=== PATIENT | female | born 1965 | race Caucasian/White ===

== ENCOUNTER → 2020-09-30 14:30 | Outpatient (BNVA) | payer OTHER, SELFPAY | PROVIDERS: PCP Internal Medicine; Referring Provider Internal Medicine; Visit Provider Nurse Practitioner ==

== ENCOUNTER 2020-10-12 07:57 | Outpatient (REF) | payer OTHER, SELFPAY ==
[2020-10-12 09:35] LABS: MANUAL DIFF FLAG NO
[2020-10-12 09:48] LABS: Basophils Percent Auto 1.1 % (0-2); Eosinophils Absolute Auto 0.1 X10*3/uL (0.0-0.4); Eosinophils Percent Auto 3.9 % (0-4); Hematocrit 39.5 % (37-47); Hemoglobin 12.8 g/dl (12.0-16.0); Imm Gran Abs Auto 0.01 X10*3/uL (0.00-0.03); Imm Gran Pct Auto 0.3 % (0.0-0.4); Lymphocytes Absolute Auto 1.6 X10*3/uL (1.2-4.9); Lymphocytes Percent Auto 45.1 % (20-40); Mean Corpuscular HGB Conc 32.4 g/dl (31.0-35.0); Mean Corpuscular Volume 89.4 fL (80-98); Mean Platelet Volume 10.4 fL (9.4-12.3); Monocytes Absolute Auto 0.4 X10*3/uL (0.1-1.2); Monocytes Percent Auto 10.4 % (2-11); Neutrophils Absolute Auto 1.4 X10*3/uL (2.0-8.3); Neutrophils Percent Auto 39.2 % (45-73); Platelet Count 268 X10*3/uL (160-400); Red Blood Count 4.42 X10*6/uL (4.20-5.50); Red Cell Distribution Width 13.6 % (11.0-16.0); White Blood Count 3.6 X10*3/uL (4.8-10.8)
[2020-10-12 09:53] LABS: Alanine Aminotransferase 14 U/L (0-31); Albumin Level 3.7 g/dL (3.5-5.0); Alkaline Phosphatase 44 U/L (39-117); Anion Gap 11 (12-20); Aspartate Amino Transferase 19 U/L (5-31); Bilirubin Total 0.4 mg/dL (0.0-1.0); Blood Urea Nitrogen 13 mg/dL (9-16); Calcium 8.8 mg/dL (8.4-10.2); Carbon Dioxide 26 mmol/L (22-29); Chloride 108 mmol/L (96-108); Cholesterol 140 mg/dL; Estimated Glomerular Filt Rate > 60; Glucose Random 86 mg/dL (60-115); HDL Cholesterol 62 mg/dL; LDL Cholesterol Calculated 66 mg/dl; Potassium 4.4 mmol/L (3.3-5.1); Sodium 141 mmol/L (135-145); Total Protein 6.1 g/dL (6.5-8.0); Triglycerides 61 mg/dL
[2020-10-12 10:08] LABS: Glucose Urine UA NEG (NEG); Leukocyte Esterase Urine NEG (NEG); Nitrite Urine NEG (NEG); Urine Blood NEG (NEG); Urine Ketones NEG (NEG); Urine Protein NEG (NEG-TRACE)
[2020-10-12 10:11] LABS: Appearance Urine CLEAR; Color Urine YELLOW
[2020-10-12 10:18] LABS: Free T4 (Free Thyroxine) 0.84 ng/dL (0.71-1.85); Thyroid Stimulating Hormone 2.87 uIU/mL (0.32-4.0); Vitamin D 25-OH Total 34.2 ng/mL (>30)
[2020-10-12 10:20] LABS: Bacteria Urine TRACE /LPF; RBC Urine 0 /HPF (0); Squamous Epithelial Cell Urine 2+ /LPF; WBC Urine 0 /HPF (0-4)
[2020-10-12 11:11] LABS: Erythrocyte Sedimentation Rate 2 MM/HR (0-20)
[2020-10-14 08:33] LABS: Folate 14.9 ng/mL (> or = 4.0); Vitamin B12 285 pg/mL (200-900)
== END 2020-10-12 07:58 | disposition home or self-care (01) ==
LOC: HO.LAB 07:57
PROVIDERS: PCP Internal Medicine; Visit Provider Internal Medicine
DX: C50.912 Malignant neoplasm of unspecified site of left female breast (principal); E78.00 Pure hypercholesterolemia, unspecified
CPT/HCPCS: 36415; 80053; 80061; 81001; 82306; 82607; 82746; 84439; 84443; 85025; 85652

== ENCOUNTER 2021-03-07 07:07 | Day surgery (SDC) | payer OTHER, SELFPAY ==
--- NOTE | 2021-03-06 09:06 | HO.ANESPROP2 ---
Documented by User: Ailin Lee NP 03/06/21 09:08 HPI - Anesthesia Eval Consult details Narrative: 55yo F for Colonoscopy PMFSH Active Problems Active Problems: All Active Problems (Updated 01/24/21 @ 13:59 by Smiley Soria RN) Gnbif-Dnzylskik-Wervh (WPW) syndrome (Acute) Colon cancer screening (Acute) Annual physical exam (Acute) Vitamin B12 deficiency (Acute) Vision changes (Acute) Osteoarthritis of knees, bilateral (Acute) Breast cancer, left (Acute) Past Medical History Medical History Breast cancer, left Chronic neck pain History of Bmcwp-Zqayulfup-Gbbts (WPW) syndrome Osteoarthritis of knees, bilateral Family History Family History Father Cholangiocarcinoma Mother Myelofibrosis Surgical History Surgical History H/O: hysterectomy History of lumpectomy of left breast Social History Social History Housing: House Alcohol intake: current Alcohol intake frequency: a few times a week Patient Tobacco Use Status: Never used Tobacco Second Hand Smoke Exposure: No Use of substances other than those prescribed or required for medical reasons: No Are you DNR?: No Advance Directives: No Advance Directives Information Provided: Yes service: No Current occupational status: employed Meds Allergies Allergy/AdvReac Type Severity Reaction Status Date / Time No Known Allergies Allergy Verified 03/07/21 07:13 Home Medications Medication Instructions Recorded Confirmed Last Taken Type cholecalciferol (vitamin D3) 25 25 mcg PO DAILY 08/15/20 01/24/21 Unknown History mcg (1,000 unit) capsule mecobalamin (vitamin B12) 5,000 5,000 mcg PO DAILY 08/15/20 01/24/21 Unknown History mcg lozenge turmeric 400 mg capsule mg PO 08/15/20 10/29/20 Unknown History ascorbate calcium (vitamin C) 500 1,000 mg PO DAILY tab 09/30/20 01/24/21 Unknown History mg tablet tamoxifen 20 mg tablet 20 mg PO DAILY 10/29/20 01/24/21 Unknown History Exam Exam Date and Time: March 06, 2021 09 Assessment and Plan Assessment Anesthesia Assessment: Chart Reviewed Documented by User: Sowmya Kauffman MD 03/07/21 07:56 PMFSH Past Medical History Medical History Breast cancer, left Chronic neck pain History of Uftoo-Cfiwvmbsk-Fpncs (WPW) syndrome Osteoarthritis of knees, bilateral Family History Family History Father Cholangiocarcinoma Mother Myelofibrosis Surgical History Surgical History H/O: hysterectomy History of lumpectomy of left breast History of Problems with Anesthesia: No Social History Social History Housing: House Alcohol intake: current Alcohol intake frequency: a few times a week Patient Tobacco Use Status: Never used Tobacco Second Hand Smoke Exposure: No Use of substances other than those prescribed or required for medical reasons: No Are you DNR?: No Advance Directives: No Advance Directives Information Provided: Yes service: No Current occupational status: employed Meds Allergies Allergy/AdvReac Type Severity Reaction Status Date / Time No Known Allergies Allergy Verified 03/07/21 07:13 Home Medications Medication Instructions Recorded Confirmed Last Taken Type cholecalciferol (vitamin D3) 25 25 mcg PO DAILY 08/15/20 01/24/21 Unknown History mcg (1,000 unit) capsule mecobalamin (vitamin B12) 5,000 5,000 mcg PO DAILY 08/15/20 01/24/21 Unknown History mcg lozenge turmeric 400 mg capsule mg PO 08/15/20 10/29/20 Unknown History ascorbate calcium (vitamin C) 500 1,000 mg PO DAILY tab 09/30/20 01/24/21 Unknown History mg tablet tamoxifen 20 mg tablet 20 mg PO DAILY 10/29/20 01/24/21 Unknown History Exam Airway Mallampati Class: II TM Dist: >3cm Neck ROM: Full Loose/Missing/Broken Teeth: No Heart: RRR Lungs: CTA Assessment and Plan Assessment Anesthesia Assessment: Anesthesia Plan Discussed Final Anesthetic Review History of Problems with Anesthesia: No NPO: Yes ASA Class: II Final Preanesthetic Review: Meds/Allgs Chart Reviewed, Consent Obtained/Reviewed and Anes Risks/Benef Reviewed Patient Risk: Low Procedure Risk: Low Anesthetic Plan Anesthetic Plan: MAC: Disposition: Standard PACU
[2021-03-07 07:19] VITALS: BMI 21.2
[2021-03-07 07:20] VITALS: BP 142/77; PULSE 97; RESP 16; TEMP 37.2; O2SAT 100
[2021-03-07] MEDS: Lactated Ringers 1,000 ML 100 ML IVCONT (07:39)
--- NOTE | 2021-03-07 07:48 | MHC.SHP ---
Pre-Procedural Eval Section A Date of Service: 03/07/21 The patient is an INPATIENT: No The History & Physical has been completed within 30 days and I have reviewed it.: No Section B Chief Complaint: screening Details of Present Illness: colon cancer screening Relevant Family History (Specify if Yes): Yes Relevant Social History: None Present Medications: see Short Stay Collaborative assessment Medical History: Significant History (Breast cancer, left Chronic neck pain) History of Previous Operations: Relevant previous surgery/procedure and date(s) (Hx of hystrectomy) Allergies: Allergies Allergy/AdvReac Type Severity Reaction Status Date / Time No Known Allergies Allergy Verified 03/07/21 07:13 Review of Systems Sugical H&P ROS: Negative: Constitution, Cardiovascular, Respiratory and Gastrointestinal Exam Surgical H&P Exam: Normal: Heart, Normal: Lungs, Normal: Extremities and Normal: Abdomen Plan Diagnosis/Plan: Unchanged I have reviewed the history and physical and performed a pertinent physical examination on my patient. No changes have occurred unless specified.
--- NOTE | 2021-03-07 07:50 | P.OP_ITS ---
Operative Note Operative Note Date of Service: 03/07/21 Narrative: Pre-op diagnosis:?Colon cancer screening Post-op diagnosis:?other (Diverticulosis) Procedure:? COLONOSCOPY TILL CECUM Consent: Indications for the procedure and potential complications of bleeding, perforation, reaction to medications and missed diagnosis were discussed with the patient and informed consent was obtained. Instrument: Olympus PCF H 190 L variable stiffness pediatric colonoscope Monitoring: Vital signs and clinical assessment, intermittent blood pressure monitoring, continuous EKG monitoring, Pulse oximetry and Carbon Dioxide monitoring were done throughout the procedure. Colon withdrawl time was 17 minutes. Procedure: The patient was placed in the left lateral decubitis position and pre-procedure medications were administered. After a digital rectal examination of the ano-rectum, the video colonoscope was inserted into the rectum and advanced through the colon to the cecum. The colonoscope was slowly withdrawn in a retrograde panoramic fashion and the colon mucosa was carefully examined including a retroflexed view of the rectum. Findings and interventions are described below. Procedure Difficulty: Without difficulty Findings: Terminal Ileum: Not evaluated Cecum:? Normal Ascending Colon:? Normal Transverse Colon:? Normal Descending Colon:? Moderate divertiiculosis Sigmoid Colon:? Moderate diverticulosis Rectum:? Normal Ano-rectum:? Hypertrophied anal papillae. Colon preparation:? Good Impression and Post Procedure Diagnosis: Colonoscopy Findings: No polyps were detected. Moderate diverticulosis seen in the left colon Plan: Repeat Colonoscopy in 10 years. Above findings were reviewed with the patient and diverticulosis handout was given in the discharge area Surgeon:?Julio Canchola MD Anesthesia:?MAC (Tessa Dumont CRNA) Was an Community Development Manager used for this Procedure?:?Yes Community Development Manager:?Alison Dupont Estimated blood loss (mL):?0 Pathology:?none sent Condition:?stable Disposition:?PACU
[2021-03-07 08:35] VITALS: BP 95/59; PULSE 89; RESP 18; TEMP 36.5; O2SAT 97
[2021-03-07 08:50] VITALS: BP 105/71; PULSE 78; RESP 16; TEMP 36.5; O2SAT 97
== END 2021-03-07 09:05 | disposition home or self-care (01) ==
PROVIDERS: PCP Internal Medicine; Visit Provider Internal Medicine Gastroenterology
PROC: 0DJD8ZZ Inspection of Lower Intestinal Tract, Via Natural or Artificial Opening Endoscopic (ICD-10-PCS; CPT 45378; principal; 2021-03-07 08:20)
DX: Z12.11 Encounter for screening for malignant neoplasm of colon (principal); K57.30 Diverticulosis of large intestine without perforation or abscess without bleeding; K62.89 Other specified diseases of anus and rectum; I45.6 Pre-excitation syndrome; G89.29 Other chronic pain; M54.2 Cervicalgia; C50.912 Malignant neoplasm of unspecified site of left female breast; Z79.810 Long term (current) use of selective estrogen receptor modulators (SERMs)
CPT/HCPCS: 45378

== ENCOUNTER 2021-05-01 11:26 | Outpatient (REF) | payer OTHER, SELFPAY ==
--- NOTE | ~2021-05-01 | XR_ITS ---
EXAMINATION: XR FOOT, RIGHT CLINICAL INFORMATION: Right foot pain. COMPARISON: 10/10/2013 TECHNIQUE: AP, lateral, and oblique views of the right foot. FINDINGS: There is a nondisplaced intra-articular fracture at the 5th toe proximal phalangeal base. Surrounding soft tissues are swollen. Alignment appears anatomic. No additional fractures. Joint spaces are well preserved aside from mild osteoarthritis at the 1st MTP joint. XR/XR foot RT min 3V IMPRESSION: Nondisplaced intra-articular fracture at the 5th toe proximal phalangeal base. Mild 1st MTP osteoarthritis.
== END 2021-05-01 11:27 | disposition home or self-care (01) ==
LOC: HO.XRAY 11:26
PROVIDERS: PCP Internal Medicine; Visit Provider Physician Assistant
DX: M79.641 Pain in right hand (principal)
CPT/HCPCS: 73630

== ENCOUNTER 2021-07-02 12:57 | Outpatient (REF) | payer OTHER, SELFPAY ==
--- NOTE | ~2021-07-02 | XR_ITS ---
EXAMINATION: XR foot RT 2V CLINICAL INFORMATION: Fracture COMPARISON: Foot radiographs 05/01/2021 TECHNIQUE: 3 views of the foot XR/XR foot RT 2V FINDINGS/IMPRESSION: Redemonstration of the mildly displaced intra-articular fracture of the base of the fifth proximal phalanx in similar alignment. No bridging bony callus formation. Mild degenerative changes of the first metatarsophalangeal joint with degenerative spurring. No cortical erosion. No joint effusion. Soft tissues are unremarkable.
== END 2021-07-02 12:58 | disposition home or self-care (01) ==
LOC: HO.XRAY 12:57
PROVIDERS: PCP Internal Medicine; Visit Provider Physician Assistant
DX: S92.502A Displaced unspecified fracture of left lesser toe(s), initial encounter for closed fracture (principal)
CPT/HCPCS: 73620

== ENCOUNTER 2022-02-10 06:09 | Outpatient (REF) | payer OTHER, SELFPAY ==
[2022-02-10 06:25] LABS: MANUAL DIFF FLAG NO
[2022-02-10 07:37] LABS: Basophils Absolute Auto 0.1 X10*3/uL (0.0-0.2); Basophils Percent Auto 1.4 % (0-2); Eosinophils Absolute Auto 0.2 X10*3/uL (0.0-0.4); Eosinophils Percent Auto 3.9 % (0-4); Hematocrit 42.4 % (37.0-47.0); Hemoglobin 14.2 g/dl (12.0-16.0); Imm Gran Abs Auto 0.01 X10*3/uL (0.00-0.03); Imm Gran Pct Auto 0.2 % (0.0-0.4); Lymphocytes Absolute Auto 2.4 X10*3/uL (1.2-4.9); Mean Corpuscular HGB Conc 33.5 g/dl (31.0-35.0); Mean Corpuscular Hemoglobin 29.1 pg (27.0-33.0); Mean Corpuscular Volume 86.9 fL (80.0-98.0); Mean Platelet Volume 10.3 fL (9.4-12.3); Monocytes Absolute Auto 0.4 X10*3/uL (0.1-1.2); Monocytes Percent Auto 8.8 % (2-11); Neutrophils Absolute Auto 1.3 x10*3/uL (2.0-8.3); Neutrophils Percent Auto 30.7 % (45-73); Platelet Count 301 X10*3/uL (160-400); Red Blood Count 4.88 X10*6/uL (4.20-5.50); Red Cell Distribution Width 12.6 % (11.0-16.0); White Blood Count 4.3 X10*3/uL (4.8-10.8)
[2022-02-10 08:37] LABS: Alanine Aminotransferase 15 U/L (0-31); Albumin Level 4.3 g/dL (3.5-5.0); Alkaline Phosphatase 69 U/L (39-117); Anion Gap 18 (12-20); Aspartate Amino Transferase 19 U/L (5-31); Bilirubin Total 0.5 mg/dL (0.0-1.0); Blood Urea Nitrogen 13 mg/dL (9-16); Calcium 9.9 mg/dL (8.4-10.2); Carbon Dioxide 24 mmol/L (22-29); Chloride 104 mmol/L (96-108); Cholesterol 203 mg/dL; Estimated Glomerular Filt Rate > 60; Free T4 (Free Thyroxine) 0.96 ng/dL (0.71-1.85); Glucose Random 93 mg/dL (60-115); HDL Cholesterol 75 mg/dL; LDL Cholesterol Calculated 115 mg/dl; Magnesium 2.4 mg/dL (1.6-2.6); Phosphorus 4.2 mg/dL (2.7-4.5); Potassium 4.2 mmol/L (3.3-5.1); Sodium 142 mmol/L (135-145); Thyroid Stimulating Hormone 3.64 uIU/mL (0.32-4.0); Total Protein 7.1 g/dL (6.5-8.0); Triglycerides 66 mg/dL; Vitamin D 25-OH Total 40.9 ng/mL (>30)
[2022-02-10 08:49] LABS: Folate 19.4 ng/mL (> or = 4.0); Vitamin B12 984 pg/mL (200-900)
== END 2022-02-10 06:10 | disposition home or self-care (01) ==
LOC: HO.LAB 06:09
PROVIDERS: PCP Internal Medicine; Visit Provider Internal Medicine
DX: I45.6 Pre-excitation syndrome (principal); E78.00 Pure hypercholesterolemia, unspecified
CPT/HCPCS: 36415; 80053; 80061; 82306; 82607; 82746; 83735; 84100; 84439; 84443; 85025

== ENCOUNTER 2022-08-03 11:37 | Outpatient (REF) | payer OTHER, SELFPAY ==
--- NOTE | ~2022-08-03 | XR_ITS ---
EXAMINATION: XR RIBS, RIGHT CLINICAL INFORMATION: Pain COMPARISON: Previous chest x-ray from 2006 TECHNIQUE: 3 views of the right ribs and one view of the chest were obtained. FINDINGS: Lungs are clear. No consolidation, pneumothorax, or pleural effusion. The cardiomediastinal silhouette and pulmonary vasculature are normal. Osseous structures are unremarkable. Ribs are intact. No fractures are identified. XR/XR ribs RT min 3V w CXR1V IMPRESSION: Unremarkable examination.
== END 2022-08-03 11:38 | disposition home or self-care (01) ==
LOC: HO.XRAY 11:37
PROVIDERS: PCP Internal Medicine; Visit Provider Physician Assistant
DX: R07.81 Pleurodynia (principal)
CPT/HCPCS: 71101

== ENCOUNTER 2022-12-02 09:56 | Outpatient (AMB) | payer OTHER, SELFPAY ==
[2022-12-02 10:00] VITALS: BP 106/78; PULSE 91; O2SAT 97; BMI 22.8
--- NOTE | 2022-12-02 10:00 | A.OFFPC_ITS ---
Vital Signs 12/02/22 10:00 Height 5 ft 10 in Weight 159 lb BMI 22.8 BP 106/78 Blood Pressure Location Lt brachial Position Sitting Pulse 91 Pulse Source Pulse Oximeter Pulse Oximetry (%) 97 Oxygen Delivery Method Room Air Intake Visit Reasons: Pressure in chest/ Congestion/Fever Intake Note: pt states fci chest cold, with fevers Allergies No Known Allergies Allergy (Verified 12/02/22 10:14) Medication List - Last Reconciled 12/02/22 by Shaun Corbett PA-C ascorbate calcium (vitamin C) 1,000 mg PO DAILY cholecalciferol (vitamin D3) 25 mcg PO DAILY mecobalamin (vitamin B12) 5,000 mcg PO DAILY turmeric mg PO zinc acetate 50 mg PO DAILY Tobacco use date assessed: 12/02/22 HPI Pressure in chest/ Congestion/Fever HPI Details Patient is a 57 old female here today for problem visit. She reports s he has been having intermittent cough and fevers over the last 4 days. Also report ear congestion and left eye crusting as well. Has not tried any rtwa-xed-djldcpn cough cold medications. Has use Tylenol which has been helpful. She does report being around her niece and nephew whom both have ear infections. [facility] Medical History Breast cancer, left Chronic neck pain History of Jitep-Thpfkhtrd-Ogwhs (WPW) syndrome Osteoarthritis of knees, bilateral Surgical History H/O: hysterectomy History of lumpectomy of left breast Family History Father Cholangiocarcinoma Mother Myelofibrosis Social History Housing: House Alcohol intake: current Alcohol intake frequency: a few times a week Patient Tobacco Use Status: Never used Tobacco e-Cigarette/Vaping Use: Never Used Second Hand Smoke Exposure: No service: No Current occupational status: employed Cognitive needs: No Hearing needs: No Vision needs: Yes Questionnaire Thrive Questionnaire Date Thrive assessed: 08/03/22 AUDIT C Alcohol Use Questionnaire (AUDIT-C) 1. How often do you have a drink containing alcohol?: 2-4 times a month 2. How many drinks containing alcohol do you have on a typical day when you are drinking?: 1 or 2 3. How often do you have six or more drinks on one occasion?: Never Total Score: 2 CORINE-7 AMB Questionnaire CORINE-7 Date CORINE - 7 assessed: 08/03/22 Source: Developed by Drs. Florian Tapia, Ana Krishnan, Evangelist Alva and colleagues, with an educational violeta from [employer]. Review of Systems Const Denies headache(s) Eyes Denies loss of vision ENT Denies vertigo, Denies dizziness, Denies headache(s) and Denies sore throat Card Denies chest pain, Denies leg edema and Denies lightheadedness Resp Reports cough, Denies hemoptysis and Denies wheezing GI Denies abdominal pain, Denies melena, Denies constipation, Denies diarrhea and Denies vomiting Denies urinary frequency, Denies dysuria and Denies urinary urgency Musc Denies arthralgias, Denies joint swelling, Denies numbness and Denies tingling Neuro Denies Abnormal speech present, Denies behavioral changes, Denies vertigo, Denies dizziness, Denies headache(s), Denies loss of vision, Denies memory loss, Denies numbness and Denies tingling Psych Denies anxiety, Denies behavioral changes, Denies depression, Denies memory loss and Denies panic attacks Cal/Lymph Denies easy bleeding and Denies easy bruising Aller/Immun Denies wheezing Physical exam (Primary Care) Vital Signs: Last Vital Signs Pulse 91 12/02/22 10:00 BP 106/78 12/02/22 10:00 Pulse Ox 97 12/02/22 10:00 Oxygen Delivery Method Room Air 12/02/22 10:00 BMI result Body Mass Index 22.8 Tobacco/Smoking Status: Tobacco use Status Tobacco use date assessed 12/02/22 12/02/22 10:04 Patient Tobacco Use Status Never used Tobacco 12/02/22 10:04 e-Cigarette/Vaping Use Never Used 12/02/22 10:04 Thrive Assessment: Date of Thrive Assessment Date Thrive assessed 08/03/22 12/02/22 10:04 Const General: healthy appearing, no acute distress, alert and awake Nutritional Appearance: well nourished Orientation/consciousness: oriented to person, oriented to place and oriented to time [facility] Ears: TM's normal bilaterally General nose exam: Normal nasal mucous membranes and turbinates present Eyes Conjunctivae: conjunctivae normal Sclerae: sclerae normal Pupils: Equal, round and reactive pupils present Neck Neck: Yes no lymphadenopathy and Yes no JVD Thyroid: Thyroid normal Carotids: no bruits Resp Other: OCCASIONAL COUGH DURING EXAM Effort & Inspection: normal respiratory effort and not tachypneic Auscultation: no crackles, no rales, no rhonchi and no wheezes Cardio Rate: regular rate Rhythm: regular rhythm Heart sounds: no murmurs and normal S1 and S2 GI Palpation (GI): Soft to palpation, nontender, no hepatomegaly and no splenomegaly Auscultation: normal bowel sounds Skin General skin exam: no rashes or lesions noted and dry skin Neuro General: oriented to person, oriented to place and oriented to time Cranial nerves: Yes Equal, round and reactive pupils present Speech: No Abnormal speech present Gait exam (Neuro): Normal gait present Motor exam (neuro): no tremor noted Extrem Right upper extremity: full ROM Left upper extremity: full ROM Right lower extremity: full ROM; no edema Left lower extremity: full ROM; no edema Psych Mental Status: mental status grossly normal Speech and movement: Normal speech and movement present Affect: normal affect Attitude: cooperative Thought process: Normal thought process present Assessment and Plan Assessment & Plan (1) URI (upper respiratory infection): Code(s): J06.9 - Acute upper respiratory infection, unspecified Qualifiers: URI type: unspecified URI Qualified Code(s): J06.9 - Acute upper respiratory infection, unspecified Plan: patient's signs symptoms most consistent with an upper respiratory infection likely viral. Advised on jyph-lyn-eeuykcz cough cold medications to use at 1st. Will supply her with an antibiotic to use if symptoms remain over the next 5 days. Also will order x-ray to evaluate for any pulmonary infiltrate Orders: Orders XR chest 2V Today J06.9 - Acute upper respiratory infection, unspecified Medications: New azithromycin For 250 mg dose pack: take 500 mg today (day 1), then 250 mg for 4 days (days 2-5) PO 6 tabs 0RF J06.9 - Acute upper respiratory infection, unspecified Coding Level of Care Code Est Pt Level 3 (00581) Diagnoses URI (upper respiratory infection) J06.9 URI type: unspecified URI
== END 2022-12-02 10:25 | disposition home or self-care (01) ==
PROVIDERS: PCP Internal Medicine; Visit Provider Physician Assistant
DX: J06.9 Acute upper respiratory infection, unspecified (principal)
CPT/HCPCS: 99213

== ENCOUNTER 2023-03-18 10:09 | Outpatient (AMB) | payer OTHER, SELFPAY ==
[2023-03-18 10:11] VITALS: BP 118/62; PULSE 75; O2SAT 98; BMI 22.7
--- NOTE | 2023-03-18 10:11 | A.OFFPC_ITS ---
Vital Signs 03/18/23 10:11 Height 5 ft 10 in Weight 158 lb BMI 22.7 BP 118/62 Blood Pressure Location Lt brachial Position Sitting Pulse 75 Pulse Source Pulse Oximeter Pulse Oximetry (%) 98 Oxygen Delivery Method Room Air Intake Visit Reasons: Annual Exam Allergies No Known Allergies Allergy (Verified 03/18/23 10:12) Medication List - Last Reconciled 03/18/23 by Tripp Palomino MD ascorbate calcium (vitamin C) 1,000 mg PO DAILY cholecalciferol (vitamin D3) 25 mcg PO DAILY mecobalamin (vitamin B12) 5,000 mcg PO DAILY [sereni select 1 cap PO BID] soy isofla-blk cohosh-mag bark 2 caps PO .QD turmeric mg PO vitamin E (dl, acetate) 180 mg PO DAILY Tobacco use date assessed: 12/02/22 Dental Screening Dental Screen Date: 03/18/23 Did you have a dental visit in the last 12 months?: Yes Did you have a dental problem in the last 6 months where you did not have access to dental care?: No Was dental information given to patient?: Patient has dentist HPI Annual Exam HPI Details 57-year-old female with history of left breast cancer 2016 lumpectomy chemoprophylaxis tamoxifen 5 years coming in for physical exam. Last seen in March 2022 has a history of displaced fracture of the 5th metatarsal bone. Patient is up-to-date with colonoscopy mammogram. Patient was seen by the Ortho in December 2021 for a right ring finger retinacular cyst had aspiration. Seen by the nurse practitioner in November 2022 for upper respiratory tract infection Z-Vikas given. Patient was also followed up by Oncology in October 2022, vertigo problem tuning left side occ chest pain. [facility] Medical History Breast cancer, left Chronic neck pain History of Hgqws-Zavdydfnu-Ahmyo (WPW) syndrome Osteoarthritis of knees, bilateral Surgical History H/O: hysterectomy History of lumpectomy of left breast Family History Father Cholangiocarcinoma Mother Myelofibrosis Social History (Updated 03/18/23 @ 10:56 by Tripp Palomino MD) Housing: House Alcohol intake: current Alcohol intake frequency: a few times a week Patient Tobacco Use Status: Never used Tobacco e-Cigarette/Vaping Use: Never Used Second Hand Smoke Exposure: No service: No Current occupational status: employed Cognitive needs: No Hearing needs: No Vision needs: Yes Questionnaire PHQ-9 Over the last 2 weeks, how often have you been bothered by any of the following problems? 1. Little interest or pleasure in doing things: not at all 2. Feeling down, depressed, or hopeless: not at all 3. Trouble falling or staying asleep, or sleeping too much: not at all 4. Feeling tired or having little energy: not at all 5. Poor appetite or overeating: not at all 6. Feeling bad about yourself - or that you are a failure or have let yourself or your family down: not at all 7. Trouble concentrating on things, such as reading the newspaper or watching television: not at all 8. Moving or speaking so slowly that other people could have noticed. Or the opposite - being so fidgety or restless that you have been moving around a lot more than usual: not at all 9. Thoughts that you would be better off or of hurting yourself in some way: not at all Total score: 0 Depression Screening Interpretation: Negative Depression Screening Done: Yes Source: Developed by Drs. Florian Tapia, Ana Krishnan, Evangelist Alva and colleagues, with an educational violeta from [employer]. Thrive Questionnaire Date Thrive assessed: 08/03/22 AUDIT C Alcohol Use Questionnaire (AUDIT-C) 1. How often do you have a drink containing alcohol?: 2-4 times a month 2. How many drinks containing alcohol do you have on a typical day when you are drinking?: 1 or 2 3. How often do you have six or more drinks on one occasion?: Never Total Score: 2 CORINE-7 AMB Questionnaire CORINE-7 Date CORINE - 7 assessed: 08/03/22 Source: Developed by Drs. Florian Tapia, Ana Krishnan, Evangelist Alva and colleagues, with an educational violeta from [employer]. Review of Systems Const Denies poor appetite and Denies weakness Eyes Denies no additional complaints ENT Reports Normal hearing present, Denies dizziness, Denies nasal congestion, Denies tinnitus and Denies sore throat Card Denies chest pain, Denies syncope, Denies rapid heart rate and Denies dyspnea Resp Denies cough and Denies dyspnea GI Denies change in stool character, Reports constipation, Denies diarrhea, Denies nausea and Denies vomiting Denies urinary frequency, Denies difficulty voiding and Denies dysuria Neuro Reports Normal hearing present, Denies confusion, Denies dizziness, Denies syncope and Denies weakness Psych Denies confusion Physical exam (Primary Care) Vital Signs: Last Vital Signs Pulse 75 03/18/23 10:11 BP 118/62 03/18/23 10:11 Pulse Ox 98 03/18/23 10:11 Oxygen Delivery Method Room Air 03/18/23 10:11 BMI result Body Mass Index 22.7 Tobacco/Smoking Status: Tobacco use Status Tobacco use date assessed 12/02/22 03/18/23 10:13 Patient Tobacco Use Status Never used Tobacco 03/18/23 10:13 e-Cigarette/Vaping Use Never Used 03/18/23 10:13 PHQ-9: PHQ-9 Score PHQ-9: Total score 0 03/18/23 10:27 Depression Screening Interpretation: Negative Thrive Assessment: Date of Thrive Assessment Date Thrive assessed 08/03/22 03/18/23 10:13 Const General: No confusion Orientation/consciousness: No confusion HENMT Head: Yes normocephalic Ears: external ears normal and TM's normal bilaterally Face and sinus: Yes normal facial exam Mouth: moist mucous membranes Throat: Yes tonsils normal Eyes Conjunctivae: conjunctivae normal Pupils: Equal, round and reactive pupils present and Pupil accommodation reflex normal Direct Ophthalmoscopy: normal light reflex Neck Neck: No lymphadenopathy Thyroid: Thyroid normal Chest Chest palpation & inspection: normal inspection of the chest Resp Effort & Inspection: normal respiratory effort and no audible wheezes Auscultation: clear to auscultation bilaterally, no crackles, no wheezes and lung sounds not diminished Cardio Rate: regular rate Rhythm: regular rhythm Peripheral pulses: radial pulses present and dorsalis pedis present GI Palpation (GI): no masses Auscultation: normal bowel sounds and normoactive bowel sounds Rectal Exam - Female: deferred Skin General skin exam: no rashes or lesions noted Rashes: no rashes Neuro General: No confusion Cranial nerves: Yes Equal, round and reactive pupils present and Yes Normal hearing present Cognition (Neuro): normal cognition Gait exam (Neuro): Normal gait present Motor exam (neuro): 5/5 motor strength present throughout Deep tendon reflexes (DTR's): Right brachioradialis reflex intensity grade: 2+, Left brachioradialis reflex intensity grade: 2+, Right patellar reflex intensity grade: 2+ and Left patellar reflex intensity grade: 2+ Extrem General: No edema Assessment and Plan Assessment & Plan (1) Annual physical exam: Code(s): Z00.00 - Encounter for general adult medical examination without abnormal findings (2) Breast cancer, left: Comment: 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 Code(s): C50.912 - Malignant neoplasm of unspecified site of left female breast Qualifiers: Breast location: unspecified site of breast Estrogen receptor status: unspecified Patient sex: female Qualified Code(s): C50.912 - Malignant neoplasm of unspecified site of left female breast Plan: Up-to-date with mammogram (3) Breast calcification, left: Comment: February 2022, 02/2023 Code(s): R92.1 - Mammographic calcification found on diagnostic imaging of breast Plan: Stable on follow-up mammogram 02/2023 (4) Yyfhv-Zpbwpjsux-Lebyg (WPW) syndrome: Comment: ablation 2011 Code(s): I45.6 - Pre-excitation syndrome Plan: Stable (5) Left foot pain: Code(s): M79.672 - Pain in left foot (6) Chest pain: Code(s): R07.9 - Chest pain, unspecified (7) Tinnitus: Code(s): H93.19 - Tinnitus, unspecified ear Orders: Orders Complete Blood Count Auto Diff Today I45.6 - Pre-excitation syndrome Comprehensive Met. Panel Today I45.6 - Pre-excitation syndrome Thyroid Stimulating Hormone Today I45.6 - Pre-excitation syndrome Lipid Panel Today E78.00 - Pure hypercholesterolemia, unspecified, I45.6 - Pre- excitation syndrome Vitamin B12 and Folate Today I45.6 - Pre-excitation syndrome Vitamin D 25-OH Total Today I45.6 - Pre-excitation syndrome UA CC w/rflx Micro + Cult Today I45.6 - Pre-excitation syndrome, R30.0 - Dysuria XR DEXA axial skeleton Today M81.0 - Age-related osteoporosis without current pathological fracture, S92.353A - Displaced fracture of fifth metatarsal bone, unspecified foot, initial encounter for closed fracture ABO RH Type Today I45.6 - Pre-excitation syndrome Free T4 (Free Thyroxine) Today I45.6 - Pre-excitation syndrome ECG 12 lead EKG Today R07.9 - Chest pain, unspecified Referrals Podiatry Referral M79.672 - Pain in left foot Speech and Hearing Referral H93.19 - Tinnitus, unspecified ear Coding Level of Care Code Est Pt Prev Care 40-64y(91572) Diagnoses Annual physical exam Z00.00 Malignant neoplasm of left female breast, unspecified estrogen receptor status, unspecified site of breast C50.912 Breast location: unspecified site of breast Estrogen receptor status: unspecified Patient sex: female Breast calcification, left R92.1 Jetmm-Jeqxqhdpk-Anvyn (WPW) syndrome I45.6 Left foot pain M79.672 Chest pain R07.9 Tinnitus H93.19
== END 2023-03-18 11:23 | disposition home or self-care (01) ==
PROVIDERS: Visit Provider Internal Medicine
DX: Z00.00 Encounter for general adult medical examination without abnormal findings (principal); C50.912 Malignant neoplasm of unspecified site of left female breast; R92.1 Mammographic calcification found on diagnostic imaging of breast; I45.6 Pre-excitation syndrome; M79.672 Pain in left foot; R07.9 Chest pain, unspecified; H93.19 Tinnitus, unspecified ear
CPT/HCPCS: 99396

== ENCOUNTER → 2023-03-19 06:52 | Outpatient (REF) | payer OTHER, SELFPAY ==
--- NOTE | 2023-03-19 06:58 | ECG_ITS ---
Test Reason : cp Blood Pressure : / mmHG Vent. Rate : 071 BPM Atrial Rate : 071 BPM P-R Int : 174 ms QRS Dur : 076 ms QT Int : 400 ms P-R-T Axes : 080 005 060 degrees QTc Int : 434 ms Normal sinus rhythm with sinus arrhythmia RSR' or QR pattern in V1 suggests right ventricular conduction delay Abnormal ECG When compared with ECG of 04-MAR-2013 13:00, Xnsze-Efnghwaiv-Ambhv is no longer Present Referred By: Tripp Palomino Electronically Signed By:ELLIE GARCIA MD
[2023-03-19 07:04] LABS: MANUAL DIFF FLAG NO
[2023-03-19 07:48] LABS: Basophils Absolute Auto 0.1 X10*3/uL (0.0-0.2); Basophils Percent Auto 1.7 % (0-2); Eosinophils Absolute Auto 0.2 X10*3/uL (0.0-0.4); Eosinophils Percent Auto 5.8 % (0-4); Hematocrit 44.3 % (37.0-47.0); Hemoglobin 14.5 g/dl (12.0-16.0); Imm Gran Abs Auto 0.01 X10*3/uL (0.00-0.03); Imm Gran Pct Auto 0.3 % (0.0-0.4); Lymphocytes Absolute Auto 1.8 X10*3/uL (1.2-4.9); Lymphocytes Percent Auto 49.7 % (20-40); Mean Corpuscular HGB Conc 32.7 g/dl (31.0-35.0); Mean Corpuscular Hemoglobin 28.2 pg (27.0-33.0); Mean Corpuscular Volume 86.2 fL (80.0-98.0); Mean Platelet Volume 9.9 fL (9.4-12.3); Monocytes Absolute Auto 0.3 X10*3/uL (0.1-1.2); Monocytes Percent Auto 8.9 % (2-11); Neutrophils Absolute Auto 1.2 x10*3/uL (2.0-8.3); Neutrophils Percent Auto 33.6 % (45-73); Platelet Count 314 X10*3/uL (160-400); Red Blood Count 5.14 X10*6/uL (4.20-5.50); Red Cell Distribution Width 13.2 % (11.0-16.0); White Blood Count 3.6 X10*3/uL (4.8-10.8)
[2023-03-19 08:20] LABS: Alanine Aminotransferase 11 U/L (0-31); Albumin Level 4.3 g/dL (3.5-5.0); Alkaline Phosphatase 59 U/L (39-117); Anion Gap 9 (12-20); Aspartate Amino Transferase 15 U/L (5-31); Bilirubin Total 0.4 mg/dL (0.0-1.0); Blood Urea Nitrogen 16 mg/dL (9-16); Calcium 9.7 mg/dL (8.4-10.2); Carbon Dioxide 29 mmol/L (22-29); Chloride 107 mmol/L (96-108); Cholesterol 205 mg/dL (<200); Estimated Glomerular Filt Rate > 60; Glucose Random 95 mg/dL (60-115); HDL Cholesterol 58 mg/dL (>40); LDL Cholesterol Calculated 132 mg/dL (<100); Potassium 4.2 mmol/L (3.3-5.1); Sodium 141 mmol/L (135-145); Total Protein 7.4 g/dL (6.5-8.0); Triglycerides 75 mg/dL (<150)
[2023-03-19 08:39] LABS: Free T4 (Free Thyroxine) 1.06 ng/dL (0.71-1.85); Thyroid Stimulating Hormone 2.73 uIU/mL (0.32-4.0); Vitamin D 25-OH Total 68.3 ng/mL (>30)
[2023-03-19 08:44] LABS: Folate 13.4 ng/mL (> or = 4.0); Vitamin B12 946 pg/mL (200-900)
[2023-03-19 10:12] LABS: Appearance Urine Clear; Color Urine Yellow; Glucose Urine UA Negative (Negative); Leukocyte Esterase Urine Moderate (2+) (Negative); Nitrite Urine Negative (Negative); PH 5.5 (5.0-9.0); Specific Gravity - Urine 1.025 (1.005-1.025); UMIC TRIGGER UACC YES; Urine Blood Negative (Negative); Urine Ketones Negative (Negative); Urine Protein Negative (Neg-Trace)
[2023-03-19 10:17] LABS: Bacteria Urine None Seen (None Seen); Hyaline Casts Urine 0-2 /LPF (0-2); RBC Urine 0-2 /HPF (0-2); UACC Culture Trigger YES; WBC Urine 21-50 /HPF (0-5)
== END ==
LOC: HO.CARD 06:52
PROVIDERS: PCP Internal Medicine; Visit Provider Internal Medicine
DX: R07.9 Chest pain, unspecified (principal); I45.6 Pre-excitation syndrome; E78.00 Pure hypercholesterolemia, unspecified; R30.0 Dysuria; E55.9 Vitamin D deficiency, unspecified; S62.90XA Unspecified fracture of unspecified hand, initial encounter for closed fracture; S92.909A Unspecified fracture of unspecified foot, initial encounter for closed fracture; X58.XXXA Exposure to other specified factors, initial encounter; Y93.9 Activity, unspecified; Y92.9 Unspecified place or not applicable; Y99.9 Unspecified external cause status
CPT/HCPCS: 36415; 80053; 80061; 81001; 81003; 82306; 82607; 82746; 84439; 84443; 85025; 86900; 86901; 87086; 93005

== ENCOUNTER 2023-04-07 14:25 | Outpatient (REF) | payer OTHER, SELFPAY ==
--- NOTE | ~2023-04-07 | MM_ITS ---
EXAMINATION: BONE DENSITOMETRY CLINICAL INDICATION: Age-related osteoporosis without current pathological fracture. COMPARISON: This is the patient's baseline examination. TECHNIQUE: Using a [employer] DXA System (software version: 13.1) manufactured by [employer], dual-energy x-ray absorptiometry was performed of the lumbar spine and left hip. The images are of good technical quality. Summary results are attached. FINDINGS: LEFT FEMUR, NECK: BMD 0.685 g/cm2, Z-score -1.6, T-score -2.5, osteoporosis. LEFT FEMUR, TOTAL: BMD 0.859 g/cm2, Z-score -0.6, T-score -1.2, osteopenia. AP SPINE L1-L4: BMD 1.128 g/cm2, Z-score 0.2, T-score -0.4, normal. IDENTIFIED RISK FACTORS: Early menopause, hysterectomy, low calcium intake, secondary osteoporosis. HISTORY OF FRACTURE: None listed. MEDICATIONS: Vitamin D. MM/XR DEXA axial skeleton IMPRESSION: 1. DIAGNOSIS: Osteoporosis based on the lowest T-score value of -2.5 in the femoral neck applying World Health Organization criteria. 2. 10-YEAR FRACTURE RISK PREDICTION, FRAX: According to the guidelines, FRAX calculation should only be performed on patients in the osteopenia bone density category. Therefore, FRAX was not performed on this patient. 3. Treatment Recommendations: NOF guidelines recommend consideration for treatment in postmenopausal women and men age 50 and older presenting with the following: -A hip or vertebral (clinical or morphometric) fracture. -T-score less than or equal to -2.5 at the femoral neck or spine after appropriate evaluation to exclude secondary causes. -Low bone mass at the hip or spine and a 10-year fracture probability by FRAX of greater than or equal to 3% for hip fracture or greater than or equal to 20% for major osteoporotic fracture based on the [place] adapted WHO algorithm. 4. Other Recommendations: All treatment decisions require clinical judgment and consideration of individual patient factors, including patient preferences, comorbidities, previous drug use, risk factors not captured in the FRAX model (e.g. frailty, falls, vitamin D deficiency, increased bone turnover, interval significant decline in bone density) and possible under or overestimation of fracture risk by FRAX. Additional medical evaluation for secondary cause of low bone mineral density may be appropriate. FUTURE SCAN RECOMMENDATION: People with diagnosed cases of osteoporosis or at high risk for fracture should have regular bone mineral density tests. For patients eligible for Medicare, routine testing is allowed once every 2 years. The testing frequency can be increased to one year for patients who have rapidly progressing disease, those who are receiving or discontinuing medical therapy to restore bone mass, or have additional risk factors.
== END 2023-04-07 14:26 | disposition home or self-care (01) ==
LOC: HO.MAMMO 14:25
PROVIDERS: PCP Internal Medicine; Visit Provider Internal Medicine
DX: Z13.820 Encounter for screening for osteoporosis (principal); M81.0 Age-related osteoporosis without current pathological fracture; Z78.0 Asymptomatic menopausal state
CPT/HCPCS: 77080

== ENCOUNTER 2023-04-20 13:27 | Outpatient (REF) | payer OTHER, SELFPAY | END 2023-04-20 13:28 | disposition home or self-care (01) | LOC: HO.SH 13:27 | PROVIDERS: Visit Provider Internal Medicine | DX: Z01.118 Encounter for examination of ears and hearing with other abnormal findings (principal); H90.3 Sensorineural hearing loss, bilateral; H93.13 Tinnitus, bilateral | CPT/HCPCS: 92557; 92625 ==

== ENCOUNTER 2023-05-04 11:27 | Outpatient (REF) | payer SELFPAY ==
--- NOTE | 2023-05-04 13:13 | MHC.AU.HA3 ---
Hearing Instrument Follow-Up- Binaural Date of Visit: 05/04/23 Follow-Up Summary: Lori visited for a demo with hearing aids, primarily to determine if they will help ease her tinnitus, as well as to gauge how much they help with her hearing loss. Programmed More 1 miniRITE Rs, reviewed basic use/insertion and removal. Follow up in 2 wks to return demos and discuss next steps. Recommendations: Recommendations: Follow up in 2 weeks. Diagnosis Code(s): Primary Diagnosis: H90.3 Bilateral Sensorineural Hearing Loss Secondary Diagnosis: H93.13 Tinnitus, Bilateral Signature: Provider: Ricky Caruso, CCC-A
== END 2023-05-04 11:28 | disposition home or self-care (01) ==
LOC: HO.HAP 11:27
PROVIDERS: Visit Provider Internal Medicine
DX: Z13.89 Encounter for screening for other disorder (principal)

== ENCOUNTER 2023-05-17 14:28 | Outpatient (AMB) | payer OTHER, SELFPAY ==
--- NOTE | 2023-05-17 14:38 | MHC.PC.OV ---
Vital Signs 05/17/23 14:46 Height 5 ft 10 in Weight 165 lb BMI 23.7 BP 106/72 Blood Pressure Location Lt brachial Position Sitting Pulse 74 Pulse Source Palpation Intake Visit Reasons: Osteoporosis Intake Note: Pt of Dr. Palomino'shellie here for Bone Density results. [employer] Required: No Accompanied by: Self / Same As Patient Allergies No Known Allergies Allergy (Verified 05/17/23 15:06) Medication List - Last Reconciled 05/17/23 by Shaun Corbett PA-C ascorbate calcium (vitamin C) 1,000 mg PO DAILY cholecalciferol (vitamin D3) 25 mcg PO DAILY mecobalamin (vitamin B12) 5,000 mcg PO DAILY [sereni select 1 cap PO BID] soy isofla-blk cohosh-mag bark 2 caps PO .QD turmeric mg PO vitamin E (dl, acetate) 180 mg PO DAILY Tobacco use date assessed: 12/02/22 HPI Osteoporosis HPI Details Patient is a 57-year-old female here today for a follow-up visit. Recently had gotten a bone density did show a T-score of-2.5 technically osteoporosis. Patient is exceptionally healthy and does report eating a very healthy diet and exercising on a nearly daily basis. Of note did have a fracture of her 5th left toe Of note patient does have a history of breast cancer and status post lumpectomy and was on tamoxifen for 5 years which is likely the reason for her early-onset osteoporosis. Patient has been unable to be exposed to estrogen due to her history of breast cancer. [facility] Medical History Breast cancer, left Chronic neck pain History of Rijex-Cozmozxvy-Uxtyg (WPW) syndrome Osteoarthritis of knees, bilateral Surgical History History of lumpectomy of left breast H/O: hysterectomy Family History Father Cholangiocarcinoma Mother Myelofibrosis Social History Housing: House Alcohol intake: current Alcohol intake frequency: a few times a week Patient Tobacco Use Status: Never used Tobacco e-Cigarette/Vaping Use: Never Used Second Hand Smoke Exposure: No service: No Current occupational status: employed Cognitive needs: No Hearing needs: No Vision needs: Yes Questionnaire PHQ-9 Over the last 2 weeks, how often have you been bothered by any of the following problems? 1. Little interest or pleasure in doing things: not at all 2. Feeling down, depressed, or hopeless: not at all 3. Trouble falling or staying asleep, or sleeping too much: not at all 4. Feeling tired or having little energy: not at all 5. Poor appetite or overeating: not at all 6. Feeling bad about yourself - or that you are a failure or have let yourself or your family down: not at all 7. Trouble concentrating on things, such as reading the newspaper or watching television: not at all 8. Moving or speaking so slowly that other people could have noticed. Or the opposite - being so fidgety or restless that you have been moving around a lot more than usual: not at all 9. Thoughts that you would be better off or of hurting yourself in some way: not at all Total score: 0 Depression Screening Interpretation: Negative Depression Screening Done: Yes 41768 - PHQ-9 Billing: Yes Source: Developed by Drs. Florian Tapia, Ana Krishnan, Evangelist Alva and colleagues, with an educational violeta from [employer]. Thrive Questionnaire Date Thrive assessed: 05/17/23 I am a: Patient What is your living situation today?: I have a steady place to live Within the past 12 months, did the food you bought not last and you didn't have the money to get more?: Never true Within the past 12 months, did you worry whether your food would run out before you got money to buy more?: Never true Do you have trouble paying for medicines?: No Do you have trouble getting transportation to medical appointments?: No Do you have trouble paying your heating and electricity bill?: No Do you have trouble taking care of your child, family member or friend?: No Do you have trouble with day-to-day activities such as bathing, preparing meals, shopping, managing finances, etc.?: No Are you currently unemployed and looking for a job?: No Are you interested in more education?: No Please select the resources that you would like help with: None Currently or been in a relationship where the following occur: no concerns reported AUDIT C Alcohol Use Questionnaire (AUDIT-C) 1. How often do you have a drink containing alcohol?: Monthly or less 2. How many drinks containing alcohol do you have on a typical day when you are drinking?: 1 or 2 3. How often do you have six or more drinks on one occasion?: Never Total Score: 1 CORINE-7 AMB Questionnaire CORINE-7 Date CORINE - 7 assessed: 05/17/23 Feeling nervous, anxious, or on edge: 0 = Not at all Not being able to stop or control worryin = Not at all Worrying too much about different things: 0 = Not at all Trouble relaxin = Not at all Being so restless that it is hard to sit still: 0 = Not at all Becoming easily annoyed or irritable: 0 = Not at all Feeling afraid as if something awful might happen: 0 = Not at all Total CORINE-7 score (0-4 normal; 5-9 mild; 10-14 moderate; 15-21 severe): 0 Source: Developed by Drs. Florian Tapia, Ana Krishnan, Evangelist Alva and colleagues, with an educational violeta from [employer]. CORINE-7 Assessment Billing CORINE-7 Assessment Tool: CORINE-7 Assessment 29135 Review of Systems Const Denies headache(s) Eyes Denies loss of vision ENT Denies vertigo, Denies dizziness, Denies headache(s) and Denies sore throat Card Denies chest pain, Denies leg edema and Denies lightheadedness Resp Denies cough, Denies hemoptysis and Denies wheezing GI Denies abdominal pain, Denies melena, Denies constipation, Denies diarrhea and Denies vomiting Denies urinary frequency, Denies dysuria and Denies urinary urgency Musc Denies arthralgias, Denies joint swelling, Denies numbness and Denies tingling Neuro Denies Abnormal speech present, Denies behavioral changes, Denies vertigo, Denies dizziness, Denies headache(s), Denies loss of vision, Denies memory loss, Denies numbness and Denies tingling Psych Denies anxiety, Denies behavioral changes, Denies depression, Denies memory loss and Denies panic attacks Cal/Lymph Denies easy bleeding and Denies easy bruising Aller/Immun Denies wheezing Physical exam (Primary Care) Vital Signs: Last Vital Signs Pulse 74 05/17/23 14:46 BP 106/72 05/17/23 14:46 BMI result Body Mass Index 23.7 Tobacco/Smoking Status: Tobacco use Status Tobacco use date assessed 12/02/22 05/17/23 14:38 Patient Tobacco Use Status Never used Tobacco 05/17/23 14:38 e-Cigarette/Vaping Use Never Used 05/17/23 14:38 PHQ-9: PHQ-9 Score PHQ-9: Total score 0 05/17/23 15:07 Depression Screening Interpretation: Negative Thrive Assessment: Date of Thrive Assessment Date Thrive assessed 05/17/23 05/17/23 14:50 Currently or been in a relationship where the following occur: no concerns reported Const General: healthy appearing, no acute distress, alert and awake Nutritional Appearance: well nourished Orientation/consciousness: oriented to person, oriented to place and oriented to time HENMT Ears: TM's normal bilaterally General nose exam: Normal nasal mucous membranes and turbinates present Eyes Conjunctivae: conjunctivae normal Sclerae: sclerae normal Pupils: Equal, round and reactive pupils present Neck Neck: Yes no lymphadenopathy and Yes no JVD Thyroid: Thyroid normal Carotids: no bruits Resp Effort & Inspection: normal respiratory effort and not tachypneic Auscultation: no crackles, no rales, no rhonchi and no wheezes Cardio Rate: regular rate Rhythm: regular rhythm Heart sounds: no murmurs and normal S1 and S2 GI Palpation (GI): Soft to palpation, nontender, no hepatomegaly and no splenomegaly Auscultation: normal bowel sounds Skin General skin exam: no rashes or lesions noted and dry skin Neuro General: oriented to person, oriented to place and oriented to time Cranial nerves: Yes Equal, round and reactive pupils present Speech: No Abnormal speech present Gait exam (Neuro): Normal gait present Motor exam (neuro): no tremor noted Extrem Right upper extremity: full ROM Left upper extremity: full ROM Right lower extremity: full ROM; no edema Left lower extremity: full ROM; no edema Psych Mental Status: mental status grossly normal Speech and movement: Normal speech and movement present Affect: normal affect Attitude: cooperative Thought process: Normal thought process present Assessment and Plan Assessment & Plan (1) Osteoporosis: Code(s): M81.0 - Age-related osteoporosis without current pathological fracture Qualifiers: Osteoporosis type: other Presence of current pathological fracture: without current pathological fracture Qualified Code(s): M81.8 - Other osteoporosis without current pathological fracture Plan: Patient seems to have a secondary form osteoporosis from her years of tamoxifen use due to breast cancer. Most recent bone density score-2.5. We did discuss perhaps starting Fosamax though patient is considering. She will continue vitamin-D and calcium rich foods and weight-bearing exercises. Patient's serum calciums have been stable. Will check parathyroid hormone Orders: Orders Parathyroid Hormone Intact 05/17/23 M81.8 - Other osteoporosis without current pathological fracture Coding Level of Care Code Est Pt Level 3 (09955) Diagnoses Other osteoporosis without current pathological fracture M81.8 Osteoporosis type: other Presence of current pathological fracture: without current pathological fracture Additional Codes CORINE-7 Assessment Billing - CORINE-7 Assessment Tool: CORINE-7 Assessment [id number] ([id number])
[2023-05-17 14:46] VITALS: BP 106/72; PULSE 74; BMI 23.7
== END 2023-05-17 15:32 | disposition home or self-care (01) ==
PROVIDERS: PCP Internal Medicine; Visit Provider Physician Assistant
DX: M81.8 Other osteoporosis without current pathological fracture (principal)
CPT/HCPCS: 99213

== ENCOUNTER 2023-05-25 11:26 | Outpatient (REF) | payer SELFPAY | END 2023-05-25 11:27 | disposition home or self-care (01) | LOC: HO.HAP 11:26 | PROVIDERS: Visit Provider Internal Medicine | DX: Z13.89 Encounter for screening for other disorder (principal) ==

== ENCOUNTER 2023-09-07 10:07 | Outpatient (AMB) | payer OTHER, SELFPAY ==
--- NOTE | 2023-09-07 10:11 | A.OFFVIS_ITS ---
Vital Signs 09/07/23 10:21 Height 5 ft 10 in Weight 159 lb 2.78 oz BMI 22.8 BP 103/69 Blood Pressure Location Lt brachial Position Sitting Pulse 80 Intake Visit Reasons: Bloating and burning in stomach Intake Note: Patient in office today for evaluation and management of abdominal bloating and burning from stomach. CC: Onset of abdominal bloating and stomach burning sensation about a month ago. Denies other GI symptoms. Allergies No Known Allergies Allergy (Verified 09/07/23 10:24) HPI HPI Bloating and burning in stomach: Details: Assessment & Plan (1) Colon cancer screening: Code(s): Z12.11 - Encounter for screening for malignant neoplasm of colon Plan - August NISHANT HurleyC: This is her first colonoscopy. She denies any bowel or upper GI problems. There are no prior problems with anesthsia or sedation. 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 No ID problems. There is no known FHX of CRC or polyps. Medications: New: peg 3350-electrolytes 236-22.74-6.74 -5.86 gram (Golytely) until fecal effluent is clear; do not exceed a total volume of 2,000 mL 240 mL PO Q10M 1 day 4,000 mL 0RF This is her first colonoscopy. She denies any bowel or upper GI problems. There are no prior problems with anesthsia or sedation. 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 No ID problems. There is no known FHX of CRC or polyps. COLONOSCOPY 03/07/21 Findings: Terminal Ileum: Not evaluated Cecum:? Normal Ascending Colon:? Normal Transverse Colon:? Normal Descending Colon:? Moderate divertiiculosis Sigmoid Colon:? Moderate diverticulosis Rectum:? Normal Ano-rectum:? Hypertrophied anal papillae. Colon preparation:? Good Impression and Post Procedure Diagnosis: Colonoscopy Findings: No polyps were detected. Moderate diverticulosis seen in the left colon Plan: Repeat Colonoscopy in 10 years. BIOPSY Laboratory Tests 03/19/23 07:02 WBC 3.6 L Hgb 14.5 Hct 44.3 Plt Count 314 Estimated GFR > 60 Total Bilirubin 0.4 AST 15 ALT 11 Alkaline Phosphatase 59 TSH 2.73 Free T4 1.06 TODAY'S VISIT Pt has not been seen since 2020 and never followed up after her colonoscopy. IT appears she is here for a new problem of burning in the stomach. She is agreeable to the 10 year follow-up. The procedure was well tolerated. The results were explained and the patient is agreeable to the follow-up interval as stated. The bowel pattern has returned to normal. Education was provided to tell any 1st degree relatives about their findings to be sure that they are screened by age 45. Educated that they will be put on a recall list when it is time for their repeat scope but should they move out of state or away from the hospital they will need to remember along with their primary to repeat the procedure in a timely fashion to avoid any adverse complications. Started about 4-5 months ago with bloating at supper that is very uncomfortable and a feeling of burning around the periumbilical area. She questions menopause. She is usually very regular with her BM's, except one day that she moved her bowels 7 times and had mucus, but it was solid. After this her whole stomach just did not feel quite right. She has lost 4-5 lbs and she has been trying to track her food to discover the triggers. She eats quite clean and healthfully. The only medication change is starting calcium citrate, and she was eating a ton of nuts. She tried stopping the calcium with only slight relief. She exercise, drinks a lot of water. The bloating is much worse at night with her largest meal. No other med changes, no illness, no diet changes. 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 She continues on her famotidine 20 mg for occasional breakthrough GERD. Will give FODMAP, [place] sibbo with flagyl and probiotic. Will consider creon depending. Also could consider dicyclomine. ROV 4 weeks. [facility] Medical History History of Rnmnc-Wffpkmldx-Ylapl (WPW) syndrome Osteoarthritis of knees, bilateral Chronic neck pain Breast cancer, left Surgical History History of lumpectomy of left breast H/O: hysterectomy Family History Father Cholangiocarcinoma Mother Myelofibrosis Social History Housing: House Alcohol intake: current Alcohol intake frequency: a few times a week Patient Tobacco Use Status: Never used Tobacco e-Cigarette/Vaping Use: Never Used Second Hand Smoke Exposure: No service: No Current occupational status: employed Cognitive needs: No Hearing needs: No Vision needs: Yes Review of Systems Const Denies fatigue, Denies fever(s), Denies night sweats, Denies poor appetite and Reports weight loss ENT Reports Normal hearing present, Denies dental pain, Denies dysphagia, Denies hearing loss, Denies mouth pain, Denies odynophagia, Denies throat swelling, Denies tongue swelling and Reports other (Dentition adequate) Card Reports no additional complaints Resp Reports no additional complaints GI Details: Reports abdominal pain, Denies melena, Reports bloating, Denies hematochezia, Denies constipation, Denies GI cramping, Denies dysphagia, Denies excessive flatus, Denies early satiety, Reports heartburn, Denies diarrhea, Denies nausea, Denies odynophagia, Denies vomiting and Denies hematemesis Skin/Breast Denies pruritus, Denies lesions, Denies rash and Denies jaundice Neuro Reports Normal hearing present and Denies Abnormal speech present Endo Denies fatigue Aller/Immun Denies throat swelling and Denies tongue swelling Physical Exam Vital Signs: Last Vital Signs Pulse 80 09/07/23 10:21 BP 103/69 09/07/23 10:21 BMI result Body Mass Index 22.8 Const General: cooperative, no acute distress, well developed and well groomed Nutritional Appearance: average body habitus and well nourished Orientation/consciousness: oriented to person, oriented to place and oriented to time Limitations: No language barrier HEENT Head: Yes normocephalic and Yes atraumatic Eyes General: appearance normal, both eyes and all related structures Pupils: Equal, round and reactive pupils present Neck Neck: Yes normal visual inspection and Yes no lymphadenopathy Thyroid: Thyroid normal Resp Effort & Inspection: normal respiratory effort and able to speak in complete sentences Auscultation: clear to auscultation bilaterally Cardio Rate: regular rate Rhythm: regular rhythm Heart sounds: Normal, physiologic split S2 sound present Peripheral pulses: radial pulses present and posterior tibial pulses present GI Inspection: No distended and No Abdominal panniculus present Palpation (GI): Soft to palpation, nontender, no guarding, not rigid and No hepatosplenomegaly present Percussion: Yes normal to percussion Auscultation: normal bowel sounds Rectal Exam - Female: deferred Skin General skin exam: no rashes or lesions noted, turgor normal, skin not dry, no jaundice, No spider nevi and no striae Rashes: no rashes Nails: normal Neuro General: oriented to person, oriented to place and oriented to time Cranial nerves: Yes Equal, round and reactive pupils present and Yes Normal hearing present Speech: No Abnormal speech present Extrem General: Yes normal to inspection, No clubbing, No cyanosis and No edema Psych Appearance: grossly normal and well kempt Mental Status: mental status grossly normal Speech and movement: Normal speech and movement present Affect: normal affect Attitude: cooperative Thought process: Normal thought process present and not confabulating Thought content: Normal thought content present Insight: Fair insight present (Psych) Judgement: Fair judgement present (Psych) Results Reviewed Results Reviewed: Laboratory Tests 03/19/23 07:02 WBC 3.6 L Hgb 14.5 Hct 44.3 Plt Count 314 Estimated GFR > 60 Total Bilirubin 0.4 AST 15 ALT 11 Alkaline Phosphatase 59 TSH 2.73 Free T4 1.06 Assessment & Plan Assessment & Plan (1) H/O colonoscopy: Comment: 2023=neg study repeat 10 years Code(s): Z98.890 - Other specified postprocedural states Category: Medical (2) Abdominal bloating: Code(s): R14.0 - Abdominal distension (gaseous) Category: Medical (3) GERD (gastroesophageal reflux disease): Code(s): K21.9 - Gastro-esophageal reflux disease without esophagitis Category: Medical Plan Pt has not been seen since 2020 and never followed up after her colonoscopy. IT appears she is here for a new problem of burning in the stomach. She is agreeable to the 10 year follow-up. The procedure was well tolerated. The results were explained and the patient is agreeable to the follow-up interval as stated. The bowel pattern has returned to normal. Education was provided to tell any 1st degree relatives about their findings to be sure that they are screened by age 45. Educated that they will be put on a recall list when it is time for their repeat scope but should they move out of state or away from the hospital they will need to remember along with their primary to repeat the procedure in a timely fashion to avoid any adverse complications. Started about 4-5 months ago with bloating at supper that is very uncomfortable and a feeling of burning around the periumbilical area. She questions menopause. She is usually very regular with her BM's, except one day that she moved her bowels 7 times and had mucus, but it was solid. After this her whole stomach just did not feel quite right. She has lost 4-5 lbs and she has been trying to track her food to discover the triggers. She eats quite clean and healthfully. The only medication change is starting calcium citrate, and she was eating a ton of nuts. She tried stopping the calcium with only slight relief. She exercise, drinks a lot of water. The bloating is much worse at night with her largest meal. No other med changes, no illness, no diet changes. 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 She continues on her famotidine 20 mg for occasional breakthrough GERD. Will give FODMAP, [place] sibbo with flagyl and probiotic. Will consider creon depending. Also could consider dicyclomine. ROV 4 weeks. Next office visit assess this is a family history of gallbladder disease and consider an ultrasound. Medications: New metronidazole 500 mg PO TID 30 tabs 0RF 10 days Coding Level of Care Code New Pt Level 3 (98652) Diagnoses H/O colonoscopy Z98.890 Abdominal bloating R14.0 GERD (gastroesophageal reflux disease) K21.9
[2023-09-07 10:21] VITALS: BP 103/69; PULSE 80; BMI 22.8
== END 2023-09-07 10:55 | disposition home or self-care (01) ==
PROVIDERS: PCP Internal Medicine; Visit Provider Nurse Practitioner
DX: R14.0 Abdominal distension (gaseous) (principal); K21.9 Gastro-esophageal reflux disease without esophagitis
CPT/HCPCS: 99213

== ENCOUNTER → 2023-09-07 10:07 | Outpatient (BNVA) | payer OTHER, SELFPAY | PROVIDERS: PCP Internal Medicine; Visit Provider Nurse Practitioner ==

== ENCOUNTER 2023-09-07 16:45 | Outpatient (AMB) | payer OTHER, SELFPAY ==
[2023-09-07 16:46] VITALS: BP 104/62; PULSE 75; O2SAT 98; BMI 22.8
--- NOTE | 2023-09-07 16:46 | A.OFFPC_ITS ---
Vital Signs 09/07/23 16:46 Height 5 ft 10 in Weight 159 lb BMI 22.8 BP 104/62 Blood Pressure Location Lt brachial Position Sitting Pulse 75 Pulse Source Pulse Oximeter Pulse Oximetry (%) 98 Oxygen Delivery Method Room Air Intake Visit Reasons: Discuss Lab Order Dietetics Professor Required: No Treater Helper: Not Required per policy Accompanied by: Self / Same As Patient Allergies No Known Allergies Allergy (Verified 09/07/23 16:46) Medication List - Last Reconciled 09/07/23 by Tripp Palomino MD ascorbate calcium (vitamin C) 1,000 mg PO DAILY famotidine 20 mg PO DAILY 21 days mecobalamin (vitamin B12) 5,000 mcg PO DAILY metronidazole 500 mg PO TID 10 days vitamin E (dl, acetate) 180 mg PO DAILY Tobacco use date assessed: 09/07/23 Dental Screening Dental Screen Date: 09/07/23 Did you have a dental visit in the last 12 months?: Yes Did you have a dental problem in the last 6 months where you did not have access to dental care?: No Was dental information given to patient?: Patient has dentist HPI Discuss Lab Order HPI Details 58-year-old female with a history of lef t breast cancer Gfyot-Akfhuerpm-Maatj syndrome coming in for follow-up. Last seen in March 2023. Mammogram is due next month colonoscopy is up-to-date bone density is osteoporosis. bloating concern - advised to take metronidazole- seen concrete sculptor. advised vitamin testing [facility] Medical History (Updated 09/07/23 @ 17:19 by Tripp Palomino MD) Colon cancer screening History of Bqjcz-Kvixdxayz-Qymhl (WPW) syndrome Osteoarthritis of knees, bilateral Chronic neck pain Breast cancer, left Surgical History History of lumpectomy of left breast H/O: hysterectomy Family History Father Cholangiocarcinoma Mother Myelofibrosis Social History Housing: House Alcohol intake: current Alcohol intake frequency: a few times a week Patient Tobacco Use Status: Never used Tobacco e-Cigarette/Vaping Use: Never Used Second Hand Smoke Exposure: No service: No Current occupational status: employed Cognitive needs: No Hearing needs: No Vision needs: Yes Questionnaire Thrive Questionnaire Date Thrive assessed: 05/17/23 CORINE-7 AMB Questionnaire CORINE-7 Date CORINE - 7 assessed: 05/17/23 Source: Developed by Drs. Florian Tapia, Ana Krishnan, Evangelist Alva and colleagues, with an educational violeta from [employer]. Physical exam (Primary Care) Vital Signs: Last Vital Signs Pulse 75 09/07/23 16:46 BP 104/62 09/07/23 16:46 Pulse Ox 98 09/07/23 16:46 Oxygen Delivery Method Room Air 09/07/23 16:46 BMI result Body Mass Index 22.8 Tobacco/Smoking Status: Tobacco use Status Tobacco use date assessed 09/07/23 09/07/23 16:51 Patient Tobacco Use Status Never used Tobacco 09/07/23 16:51 e-Cigarette/Vaping Use Never Used 09/07/23 16:51 Thrive Assessment: Date of Thrive Assessment Date Thrive assessed 05/17/23 09/07/23 16:51 Const General: alert; No acute distress Eyes Conjunctivae: conjunctivae normal Resp Auscultation: clear to auscultation bilaterally Cardio Rate: regular rate Rhythm: regular rhythm GI Inspection: Yes normal to inspection Extrem General: Yes normal to inspection and No edema Assessment and Plan Assessment & Plan (1) GERD (gastroesophageal reflux disease): Code(s): K21.9 - Gastro-esophageal reflux disease without esophagitis Plan: On famotidine Avoid the foods that causes that usually spicy foods, tomato products, juices, coffee, soda and foods that your sensitive to. After eating do not lie down, allow 3-4 hours before in lie down. And keep the head of bed above 30 degrees to avoid the acid from going up. (2) Osteoporosis: Code(s): M81.0 - Age-related osteoporosis without current pathological fracture Qualifiers: Osteoporosis type: other Presence of current pathological fracture: without current pathological fracture Qualified Code(s): M81.8 - Other osteoporosis without current pathological fracture Plan: Discussed about treatment as well as calcium and vitamin-D (3) Breast cancer, left: Comment: Intermediate grade ductal carcinoma insitu 2016 lumpectomy and tamoxifen(no radiation) Michelle Code(s): C50.912 - Malignant neoplasm of unspecified site of left female breast Qualifiers: Breast location: unspecified site of breast Estrogen receptor status: unspecified Patient sex: female Qualified Code(s): C50.912 - Malignant neoplasm of unspecified site of left female breast Plan: Mammogram is due next month (4) Hypercholesterolemia: Code(s): E78.00 - Pure hypercholesterolemia, unspecified Plan: Avoid fried foods, chicken skin, eggs, butter margarine, pastries and meat. Be it pork or beef they have a lot of cholesterol LDL goal of less than 130 and triglyceride of less than 150. (5) Abdominal bloating: Code(s): R14.0 - Abdominal distension (gaseous) Orders: Orders IRON PROFILE Today M81.8 - Other osteoporosis without current pathological fracture Ferritin Today M81.8 - Other osteoporosis without current pathological fracture Vitamin A Today M81.8 - Other osteoporosis without current pathological fracture Magnesium, RBC Today R14.0 - Abdominal distension (gaseous) Coding Level of Care Code Est Pt Level 4 (84820) Diagnoses GERD (gastroesophageal reflux disease) K21.9 Other osteoporosis without current pathological fracture M81.8 Osteoporosis type: other Presence of current pathological fracture: without current pathological fracture Malignant neoplasm of left female breast, unspecified estrogen receptor status, unspecified site of breast C50.912 Breast location: unspecified site of breast Estrogen receptor status: unspecified Patient sex: female Hypercholesterolemia E78.00 Abdominal bloating R14.0
== END 2023-09-07 17:42 | disposition home or self-care (01) ==
PROVIDERS: PCP Internal Medicine; Visit Provider Internal Medicine
DX: K21.9 Gastro-esophageal reflux disease without esophagitis (principal); M81.8 Other osteoporosis without current pathological fracture; C50.912 Malignant neoplasm of unspecified site of left female breast; E78.00 Pure hypercholesterolemia, unspecified; R14.0 Abdominal distension (gaseous)
CPT/HCPCS: 99214

== ENCOUNTER 2023-09-09 06:42 | Outpatient (REF) | payer OTHER, SELFPAY ==
[2023-09-09 07:51] LABS: Iron 109 mcg/dL (30-160); Percent Iron Saturation 39 % (15-50); Total Iron Binding Capacity 283 mcg/dL (228-428); Unsaturated Iron Binding 174 ug/dL
[2023-09-09 08:10] LABS: Ferritin 90 ng/mL (10-250)
[2023-09-14 17:54] LABS: Vitamin A 44 mcg/dL (38-98)
[2023-09-15 17:14] LABS: Magnesium, RBC 5.5 mg/dL (4.0-6.4)
== END 2023-09-09 06:43 | disposition home or self-care (01) ==
LOC: HO.LAB 06:42
PROVIDERS: PCP Internal Medicine; Visit Provider Internal Medicine
DX: M81.8 Other osteoporosis without current pathological fracture (principal); R14.0 Abdominal distension (gaseous)
CPT/HCPCS: 36415; 82728; 83540; 83735; 84590

== ENCOUNTER 2023-10-08 12:45 | Outpatient (AMB) | payer OTHER, SELFPAY ==
--- NOTE | 2023-10-08 12:48 | MHC.OFFVIS ---
Vital Signs 10/08/23 12:49 Height 5 ft 10 in Weight 156 lb 1.396 oz BMI 22.4 BP 99/68 Blood Pressure Location Lt brachial Position Sitting Pulse 80 Intake Visit Reasons: 4 week follow up bloating Intake Note: Patient in office today in 4 weeks follow up of abdominal bloating and burning from stomach. CC: Patient states that she is doing better and denies having any new GI concerns today. Inner Tube Inserter Required: No Accompanied by: Self / Same As Patient Allergies No Known Allergies Allergy (Verified 10/08/23 12:52) HPI HPI 4 week follow up bloating: Details: Assessment & Plan (1) H/O colonoscopy: Comment: 2023=neg study repeat 10 years Code(s): Z98.890 - Other specified postprocedural states Category: Medical (2) Abdominal bloating: Code(s): R14.0 - Abdominal distension (gaseous) Category: Medical (3) GERD (gastroesophageal reflux disease): Code(s): K21.9 - Gastro-esophageal reflux disease without esophagitis Category: Medical Plan Pt has not been seen since 2020 and never followed up after her colonoscopy. IT appears she is here for a new problem of burning in the stomach. She is agreeable to the 10 year follow-up. The procedure was well tolerated. The results were explained and the patient is agreeable to the follow-up interval as stated. The bowel pattern has returned to normal. Education was provided to tell any 1st degree relatives about their findings to be sure that they are screened by age 45. Educated that they will be put on a recall list when it is time for their repeat scope but should they move out of state or away from the hospital they will need to remember along with their primary to repeat the procedure in a timely fashion to avoid any adverse complications. Started about 4-5 months ago with bloating at supper that is very uncomfortable and a feeling of burning around the periumbilical area. She questions menopause. She is usually very regular with her BM's, except one day that she moved her bowels 7 times and had mucus, but it was solid. After this her whole stomach just did not feel quite right. She has lost 4-5 lbs and she has been trying to track her food to discover the triggers. She eats quite clean and healthfully. The only medication change is starting calcium citrate, and she was eating a ton of nuts. She tried stopping the calcium with only slight relief. She exercise, drinks a lot of water. The bloating is much worse at night with her largest meal. No other med changes, no illness, no diet changes. 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 She continues on her famotidine 20 mg for occasional breakthrough GERD. Will give FODMAP, [place] sibbo with flagyl and probiotic. Will consider creon depending. Also could consider dicyclomine. ROV 4 weeks. Next office visit assess this is a family history of gallbladder disease and consider an ultrasound. Medications: New metronidazole 500 mg PO TID 30 tabs 0RF 10 days TODAY'S VISIT She had improvement on the flagyl with the bloating and she tolerated the medicine well except for a return of her hot flashes. This is a possible s/e documented with this medication. However she would rather have the hot flashes that her bloating and she is actually quite satisfied now with her GI regimen. She continues on a probiotic supplement and we briefly discussed prebiotic supplementation but this can be a gaseous pill am not sure we want to go there. ROV 6 mos [facility], [facility] Medical History (Updated 10/08/23 @ 12:55 by TRAMAINE Ruiz) Right foot pain Fracture of fifth toe, left, closed Displaced fracture of fifth metatarsal bone URI (upper respiratory infection) Rib pain on right side COVID-19 virus infection Acute viral bronchitis Annual physical exam Colon cancer screening History of Ovykf-Jdujhkqwx-Mktpv (WPW) syndrome Osteoarthritis of knees, bilateral Chronic neck pain Breast cancer, left Surgical History History of lumpectomy of left breast H/O: hysterectomy Family History Father Cholangiocarcinoma Mother Myelofibrosis Social History Housing: House Alcohol intake: current Alcohol intake frequency: a few times a week Patient Tobacco Use Status: Never used Tobacco e-Cigarette/Vaping Use: Never Used Second Hand Smoke Exposure: No service: No Current occupational status: employed Cognitive needs: No Hearing needs: No Vision needs: Yes Review of Systems Const Denies fatigue, Denies fever(s), Denies night sweats, Denies poor appetite and Denies weight loss ENT Reports Normal hearing present, Denies dental pain, Denies dysphagia, Denies hearing loss, Denies mouth pain, Denies odynophagia, Denies throat swelling, Denies tongue swelling and Reports other (Dentition adequate) Card Reports no additional complaints Resp Reports no additional complaints GI Details: Denies abdominal pain, Denies melena, Reports bloating, Denies hematochezia, Denies constipation, Denies GI cramping, Denies dysphagia, Denies excessive flatus, Denies early satiety, Denies heartburn, Denies diarrhea, Denies nausea, Denies odynophagia, Denies vomiting and Denies hematemesis Skin/Breast Denies pruritus, Denies lesions, Denies rash and Denies jaundice Neuro Reports Normal hearing present and Denies Abnormal speech present Endo Denies fatigue and Reports flushing Aller/Immun Denies throat swelling and Denies tongue swelling Physical Exam Vital Signs: Last Vital Signs Pulse 80 10/08/23 12:49 BP 99/68 10/08/23 12:49 BMI result Body Mass Index 22.4 Const General: cooperative, no acute distress, well developed and well groomed Nutritional Appearance: average body habitus and well nourished Orientation/consciousness: oriented to person, oriented to place and oriented to time Limitations: No language barrier HEENT Head: Yes normocephalic and Yes atraumatic Eyes General: appearance normal, both eyes and all related structures Pupils: Equal, round and reactive pupils present Neck Neck: Yes normal visual inspection and Yes no lymphadenopathy Thyroid: Thyroid normal Resp Effort & Inspection: normal respiratory effort and able to speak in complete sentences Auscultation: clear to auscultation bilaterally Cardio Rate: regular rate Rhythm: regular rhythm Heart sounds: Normal, physiologic split S2 sound present Peripheral pulses: radial pulses present and posterior tibial pulses present GI Inspection: No distended and No Abdominal panniculus present Palpation (GI): Soft to palpation, nontender, no guarding, not rigid and No hepatosplenomegaly present Percussion: Yes normal to percussion Auscultation: normal bowel sounds Rectal Exam - Female: deferred Skin General skin exam: no rashes or lesions noted, turgor normal, skin not dry, no jaundice, No spider nevi and no striae Rashes: no rashes Nails: normal Neuro General: oriented to person, oriented to place and oriented to time Cranial nerves: Yes Equal, round and reactive pupils present and Yes Normal hearing present Speech: No Abnormal speech present Extrem General: Yes normal to inspection, No clubbing, No cyanosis and No edema Psych Appearance: grossly normal and well kempt Mental Status: mental status grossly normal Speech and movement: Normal speech and movement present Affect: normal affect Attitude: cooperative Thought process: Normal thought process present and not confabulating Thought content: Normal thought content present Insight: Good insight present (Psych) Judgement: Good judgement present (Psych) Assessment & Plan Assessment & Plan (1) Abdominal bloating: Code(s): R14.0 - Abdominal distension (gaseous) Category: Medical (2) GERD (gastroesophageal reflux disease): Code(s): K21.9 - Gastro-esophageal reflux disease without esophagitis Category: Medical Plan She had improvement on the flagyl with the bloating and she tolerated the medicine well except for a return of her hot flashes. This is a possible s/e documented with this medication. However she would rather have the hot flashes that her bloating and she is actually quite satisfied now with her GI regimen. She continues on a probiotic supplement and we briefly discussed prebiotic supplementation but this can be a gaseous pill am not sure we want to go there. ROV 6 mos Coding Level of Care Code Est Pt Level 3 (71872) Diagnoses Abdominal bloating R14.0 GERD (gastroesophageal reflux disease) K21.9
[2023-10-08 12:49] VITALS: BP 99/68; PULSE 80; BMI 22.4
== END 2023-10-08 13:28 | disposition home or self-care (01) ==
PROVIDERS: PCP Internal Medicine; Visit Provider Nurse Practitioner
DX: R14.0 Abdominal distension (gaseous) (principal); K21.9 Gastro-esophageal reflux disease without esophagitis
CPT/HCPCS: 99213

== ENCOUNTER → 2023-10-08 12:45 | Outpatient (BNVA) | payer OTHER, SELFPAY | PROVIDERS: PCP Internal Medicine; Visit Provider Nurse Practitioner ==

== ENCOUNTER 2023-11-04 09:17 | Outpatient (REF) | payer OTHER, SELFPAY ==
--- NOTE | 2023-11-04 09:23 | ECG_ITS ---
Test Reason : PRE EXCITMENT SYNDROME Blood Pressure : / mmHG Vent. Rate : 064 BPM Atrial Rate : 064 BPM P-R Int : 176 ms QRS Dur : 076 ms QT Int : 414 ms P-R-T Axes : 074 017 051 degrees QTc Int : 427 ms Normal sinus rhythm Septal infarct (cited on or before 04-NOV-2023) Abnormal ECG When compared with ECG of 19-MAR-2023 07:01, No significant change was found Referred By: Shaun Corbett Electronically Signed By:HELDER HU MD
[2023-11-04 09:45] LABS: Hematocrit 43.2 % (37.0-47.0); Hemoglobin 14.2 g/dl (12.0-16.0); Mean Corpuscular HGB Conc 32.9 g/dl (31.0-35.0); Mean Corpuscular Hemoglobin 28.6 pg (27.0-33.0); Mean Corpuscular Volume 86.9 fL (80.0-98.0); Mean Platelet Volume 9.5 fL (9.4-12.3); Platelet Count 287 X10*3/uL (160-400); Red Blood Count 4.97 X10*6/uL (4.20-5.50); White Blood Count 2.8 X10*3/uL (4.8-10.8)
[2023-11-04 10:22] LABS: Anion Gap 9 (12-20); Blood Urea Nitrogen 13 mg/dL (9-16); Calcium 9.5 mg/dL (8.4-10.2); Carbon Dioxide 30 mmol/L (22-29); Chloride 106 mmol/L (96-108); Estimated Glomerular Filt Rate > 60; Glucose Random 90 mg/dL (60-115); Sodium 141 mmol/L (135-145)
[2023-11-04 10:25] LABS: Parathyroid Hormone Intact 53.4 pg/mL (8.7-77.1)
[2023-11-04 10:30] LABS: Troponin-I High Sensitivity < 2.7 ng/L (<3.5-17.0)
[2023-11-04 11:35] LABS: Folate 11.3 ng/mL (> or = 4.0); Vitamin B12 466 pg/mL (200-900)
== END 2023-11-04 09:18 | disposition home or self-care (01) ==
LOC: HO.LAB 09:17
PROVIDERS: PCP Internal Medicine; Visit Provider Physician Assistant
DX: R07.9 Chest pain, unspecified (principal); M81.8 Other osteoporosis without current pathological fracture; E53.8 Deficiency of other specified B group vitamins; I45.6 Pre-excitation syndrome
CPT/HCPCS: 36415; 80048; 82607; 82746; 83970; 84484; 85027; 93005

== ENCOUNTER → 2023-11-04 09:23 | Outpatient (BNV) | payer OTHER, SELFPAY | PROVIDERS: PCP Internal Medicine; Visit Provider Internal Medicine Cardiovascular Disease | DX: R94.31 Abnormal electrocardiogram [ECG] [EKG] (principal) | CPT/HCPCS: 93010 ==

== ENCOUNTER → 2023-11-23 07:59 | Outpatient (BNV) | payer OTHER, SELFPAY | PROVIDERS: PCP Internal Medicine; Referring Provider Internal Medicine; Visit Provider Internal Medicine Medical Oncology | DX: D72.819 Decreased white blood cell count, unspecified (principal) | CPT/HCPCS: 99204; 99213 ==

== ENCOUNTER 2024-02-23 10:36 | Outpatient (REF) | payer OTHER, SELFPAY ==
--- NOTE | ~2024-02-23 | CT_ITS ---
EXAMINATION: CT CHEST WITH CONTRAST CLINICAL INFORMATION: Cough, history of breast cancer, with night sweats COMPARISON: None available. TECHNIQUE: Multidetector volumetric CT imaging of the chest was obtained after the administration of 65 mL of Omnipaque 350 intravenous contrast without immediate adverse reactions. Axial MIP volume rendering provided. Sagittal and coronal reformatted images were obtained. This CT examination was performed using dose optimization techniques as appropriate, variously including the following: *Automated exposure control *Adjustment of mA and/or kV according to patient size (this includes techniques or standardized protocols for targeted exams where dose is matched to indication/reason for exam; i.e. extremities or head) *Use of iterative reconstruction technique DLP: 241 mGy-cm FINDINGS: LUNGS: Extensive mucous plugging in bronchus intermedius and into the right middle and lower lobe bronchi. Infiltrates and atelectatic changes and mucous plugging of the anterior right lower lobe. Right infrahilar medial right lower lobe nodular consolidation series 4 image 154 at 3.2 x 1.6 cm with adjacent groundglass opacities and mucous plugging. Atelectatic change of the lateral basilar right lower lobe and posterior basilar right lower lobe. MEDIASTINUM: Small mediastinal nodes without suspicious enlargement. Right hilar laurel tissue as well as mucous plugging, with the laurel structures measuring 10 to 11 mm series 2 image 36. PLEURA: There is no pleural effusion. No pleural mass or thickening. AXILLA: No suspiciously enlarged axillary adenopathy. UPPER ABDOMEN: Unremarkable OSSEOUS STRUCTURES: Small thoracic spondylitic changes. No acute compression fractures. CT/CT chest w IV con IMPRESSION: Extensive mucous plugging, with extension into the right middle and lower lobe bronchi. There are infiltrates and atelectatic changes with groundglass opacity and mucous plugging of anterior right lower lobe. A more nodular consolidation is observed in the infrahilar medial right lower lobe with above noted dimensions, also demonstrating adjacent patchy groundglass opacities and mucous plugging. Close follow-up recommended. Atelectatic changes. Small mediastinal nodes. Slightly enlarged right hilar nodes. Other incidental findings as noted above. Fleischner guidelines were followed. Electronically signed by: Chai Doss MD 02/23/2024 03:57 PM EDT
[2024-02-23] MEDS: iohexoL 350 MG/ML 100 ML INFUS..BTL IV (11:29)
== END 2024-02-23 10:37 | disposition home or self-care (01) ==
LOC: HO.CT 10:36
PROVIDERS: PCP Internal Medicine; Visit Provider Internal Medicine Medical Oncology
DX: R05.3 Chronic cough (principal)
CPT/HCPCS: 71260; Q9967

== ENCOUNTER 2024-02-25 08:31 | Outpatient (AMB) | payer OTHER, SELFPAY ==
[2024-02-25 08:36] VITALS: BP 118/60; PULSE 89; O2SAT 93; BMI 23.1
--- NOTE | 2024-02-25 08:36 | A.OFFVIS_ITS ---
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 The patient is a 58 year woman with a known history of breast cancer, WPW, in addition to leukopenia who was being worked up for tick-borne diseases. She has been not feeling well now for about a year. She has had a worsening cough at times productive moderate to s evere. In addition to that she has had some decreased energy and chest discomfort. Over the summer that she went to a specialist and she was diagnosed with chronic legionnaires in addition to that she was given a diagnosis of tick- borne diseases and she was started on antibiotic regimen including rifampin, azithromycin in addition to doxycycline. She did tolerate the antibiotics but she started developing again worsening cough congestion shortness breath and chest discomfort. Of which point the patient did have imaging studies done. I did personally review a CT scan of the chest that she had which appears to have a blockage of theright sided bronchus intermedius in addition to that significant mucus plugging of the right lower lobe along with airspace disease consistent with a bronchopneumonia. No lymphadenopathy appreciated. No other involvement of disease. On further questioning she denies any hemoptysis. Sometimes though she gets a metallic taste in her mouth. In addition to that she denies any event. Based on the imaging studies in her symptoms I did recommend bronchoscopy at this point to try to delineate the obstruction self and provide her therapeutic and diagnostic procedure. The patient is agreeable at this time. [facility] Medical History (Updated 02/27/24 @ 20:49 by Gilberto Ohara MD) Airway obstruction Bronchopneumonia Right foot pain Fracture of fifth toe, left, closed Displaced fracture of fifth metatarsal bone URI (upper respiratory infection) Rib pain on right side COVID-19 virus infection Acute viral bronchitis Annual physical exam Colon cancer screening History of Gkgii-Evgbcntdc-Qhjre (WPW) syndrome Osteoarthritis of knees, bilateral Chronic neck pain Breast cancer, left Surgical History History of lumpectomy of left breast H/O: hysterectomy Family History Father Cholangiocarcinoma Mother Myelofibrosis Social History Housing: House Alcohol intake: current Alcohol intake frequency: a few times a week Patient Tobacco Use Status: Never used Tobacco e-Cigarette/Vaping Use: Never Used Second Hand Smoke Exposure: No service: No Current occupational status: employed and retired Cognitive needs: No Hearing needs: No Vision needs: Yes Review of Systems Const Denies fever(s) Eyes Reports no additional complaints ENT Reports nasal congestion Card Reports chest pain and Reports dyspnea on exertion Resp Reports change in phlegm color, Reports chest congestion, Reports cough, Denies hemoptysis, Reports dyspnea on exertion and Denies wheezing GI Reports no additional complaints Musc Reports myalgias Skin/Breast Denies rash Neuro Reports no additional complaints Endo Reports no additional complaints Cal/Lymph Reports no additional complaints Aller/Immun Denies wheezing Physical Exam Vital Signs: Last Vital Signs Pulse 89 02/25/24 08:36 BP 118/60 02/25/24 08:36 Pulse Ox 93 02/25/24 08:36 Oxygen Delivery Method Room Air 02/25/24 08:36 BMI result Body Mass Index 23.1 Const General: comfortable HEENT Head: Yes normocephalic Neck Neck: Yes supple Chest Chest palpation & inspection: normal inspection of the chest Resp Effort & Inspection: normal respiratory effort Auscultation: rhonchi and diminished lung sounds Cardio Heart sounds: S1 normal heart sound present and S2 normal heart sound present GI Palpation (GI): Soft to palpation Skin General skin exam: no rashes or lesions noted Extrem General: Yes no clubbing, cyanosis or edema Assessment & Plan Assessment & Plan (1) Bronchopneumonia: Code(s): J18.0 - Bronchopneumonia, unspecified organism Category: Medical (2) Airway obstruction: Code(s): J98.8 - Other specified respiratory disorders Category: Medical Plan request CPT with acapella valve Hold all antibiotics for now plan for bronchoscopy for diagnostic/therapeutic intervention F/U 2-3 weeks Medications: New codeine-guaifenesin 10-100 mg/5 mL 10 mL PO Q6H PRN 300 mL 0RF cough 10 days Coding Level of Care Code New Pt Level 5 (80691) Diagnoses Bronchopneumonia J18.0 Airway obstruction J98.8 Time Spent (min) 60
== END 2024-02-25 09:26 | disposition home or self-care (01) ==
PROVIDERS: PCP Internal Medicine; Visit Provider Hospitalist
DX: J18.0 Bronchopneumonia, unspecified organism (principal); J98.8 Other specified respiratory disorders
CPT/HCPCS: 99205

== ENCOUNTER → 2024-02-25 08:31 | Outpatient (BNVA) | payer OTHER, SELFPAY | PROVIDERS: PCP Internal Medicine; Visit Provider Hospitalist ==

== ENCOUNTER → 2024-03-02 11:58 | Day surgery (SDC) | payer OTHER, SELFPAY ==
--- NOTE | 2024-03-01 13:14 | HO.ANESPROP2 ---
Documented by User: Ailin Lee NP 03/01/24 13:21 HPI - Anesthesia Eval Consult details Narrative: 58yo F for Bronchoscopy Fiberoptic Hx WPW, not seen on two most recent EKG s/p ablation 2013. Follows with PCP only now. PONV - good effect with scop patch PMFSH Active Problems Active Problems: All Active Problems Airway obstruction (Acute) Bronchopneumonia (Acute) Chronic leukopenia (Acute) Hypercholesterolemia (Acute) Abdominal bloating (Acute) H/O colonoscopy (Acute) GERD (gastroesophageal reflux disease) (Acute) Osteoporosis (Acute) Tinnitus (Acute) Chest pain (Acute) Left foot pain (Acute) Abdominal muscle strain (Acute) Lightheaded (Acute) Breast calcification, left (Acute) Rekry-Gqduahzlg-Zvzqj (WPW) syndrome (Acute) Vitamin B12 deficiency (Acute) Vision changes (Acute) Osteoarthritis of knees, bilateral (Acute) Breast cancer, left (Acute) Past Medical History Medical History (Updated 02/27/24 @ 20:49 by Gilberto Ohara MD) Airway obstruction Bronchopneumonia Right foot pain Fracture of fifth toe, left, closed Displaced fracture of fifth metatarsal bone URI (upper respiratory infection) Rib pain on right side COVID-19 virus infection Acute viral bronchitis Annual physical exam Colon cancer screening History of Wwzgq-Eesjgrodb-Wqdbm (WPW) syndrome Osteoarthritis of knees, bilateral Chronic neck pain Breast cancer, left Family History Family History Father Cholangiocarcinoma Mother Myelofibrosis Family history of problems with anesthesia: No Surgical History Surgical History H/O cardiac radiofrequency ablation (~2013) History of lumpectomy of left breast H/O: hysterectomy History of Problems with Anesthesia: Yes (PONV - good effect with scop) Social History Social History Housing: House Alcohol intake: current Alcohol intake frequency: a few times a week Patient Tobacco Use Status: Never used Tobacco e-Cigarette/Vaping Use: Never Used Second Hand Smoke Exposure: No Advance Directives: No Advance Directives Information Provided: Yes service: No Current occupational status: employed and retired Cognitive needs: No Hearing needs: No Vision needs: Yes Meds Allergies Allergy/AdvReac Type Severity Reaction Status Date / Time No Known Allergies Allergy Verified 03/02/24 12:36 Home Medications ?Medication ?Instructions ?Recorded ?Confirmed ?Last Taken ?Type ascorbate calcium (vitamin C) 500 1,000 mg PO DAILY 09/30/20 03/02/24 Unknown History mg tablet cholecalciferol (vitamin D3) 25 25 mcg PO DAILY 10/08/23 03/02/24 Unknown History mcg (1,000 unit) capsule naltrexone 4.5 mg capsule 4.5 mg PO DAILY 11/23/23 03/02/24 Unknown History krill 500 mg-omega 3 115 mg-dha 30 1 cap PO DAILY 02/22/24 03/02/24 Unknown History mg-epa 64 rz-msghfjz-jbqut capsule turmeric (bulk) 95 % powder 500 ea miscellaneous DAILY 02/22/24 03/02/24 Unknown History (Curcumin) albuterol sulfate 90 mcg/actuation 2 puff inhalation Q6H PRN asthma 02/25/24 03/02/24 Unknown History aerosol inhaler lactobacillus combination no.9 4 4,000 mmu cells PO DAILY 02/25/24 03/02/24 Unknown History billion cell capsule (Adult 50 Plus Probiotic) oregano oil 1,500 mg capsule mg PO 02/25/24 Unknown History soybean, fermented 50 mg capsule mg PO 02/25/24 Unknown History (Nattokinase) Exam Pertinent Lab Results Pertinent Lab Results: Laboratory Tests 02/22/24 11:02 WBC 5.1 Hgb 14.3 Hct 42.9 Plt Count 319 Sodium 140 Potassium 4.1 Chloride 106 Carbon Dioxide 27 BUN 15 Creatinine 0.80 Narrative Narrative: EKG 10/2023 Vent. Rate : 064 BPM Atrial Rate : 064 BPM P-R Int : 176 ms QRS Dur : 076 ms QT Int : 414 ms P-R-T Axes : 074 017 051 degrees QTc Int : 427 ms Normal sinus rhythm Septal infarct (cited on or before 04-NOV-2023) Abnormal ECG When compared with ECG of 19-MAR-2023 07:01, No significant change was found Assessment and Plan Assessment Anesthesia Assessment: Chart Reviewed Final Anesthetic Review Family History of Problems with Anesthesia: No History of Problems with Anesthesia: Yes (PONV - good effect with scop) Documented by User: Ever Marcelo MD 03/02/24 12:58 [facility] Past Medical History Medical History (Updated 02/27/24 @ 20:49 by Gilberto Ohara MD) Airway obstruction Bronchopneumonia Right foot pain Fracture of fifth toe, left, closed Displaced fracture of fifth metatarsal bone URI (upper respiratory infection) Rib pain on right side COVID-19 virus infection Acute viral bronchitis Annual physical exam Colon cancer screening History of Egfek-Tcozfbzup-Xdmkt (WPW) syndrome Osteoarthritis of knees, bilateral Chronic neck pain Breast cancer, left Family History Family History Father Cholangiocarcinoma Mother Myelofibrosis Surgical History Surgical History H/O cardiac radiofrequency ablation (~2013) History of lumpectomy of left breast H/O: hysterectomy History of Problems with Anesthesia: Yes Social History Social History Housing: House Alcohol intake: current Alcohol intake frequency: a few times a week Patient Tobacco Use Status: Never used Tobacco e-Cigarette/Vaping Use: Never Used Second Hand Smoke Exposure: No Advance Directives: No Advance Directives Information Provided: Yes service: No Current occupational status: employed and retired Cognitive needs: No Hearing needs: No Vision needs: Yes Meds Allergies Allergy/AdvReac Type Severity Reaction Status Date / Time No Known Allergies Allergy Verified 03/02/24 12:36 Home Medications ?Medication ?Instructions ?Recorded ?Confirmed ?Last Taken ?Type ascorbate calcium (vitamin C) 500 1,000 mg PO DAILY 09/30/20 03/02/24 Unknown History mg tablet cholecalciferol (vitamin D3) 25 25 mcg PO DAILY 10/08/23 03/02/24 Unknown History mcg (1,000 unit) capsule naltrexone 4.5 mg capsule 4.5 mg PO DAILY 11/23/23 03/02/24 Unknown History krill 500 mg-omega 3 115 mg-dha 30 1 cap PO DAILY 02/22/24 03/02/24 Unknown History mg-epa 64 vt-gqyvqph-btyhi capsule turmeric (bulk) 95 % powder 500 ea miscellaneous DAILY 02/22/24 03/02/24 Unknown History (Curcumin) albuterol sulfate 90 mcg/actuation 2 puff inhalation Q6H PRN asthma 02/25/24 03/02/24 Unknown History aerosol inhaler lactobacillus combination no.9 4 4,000 mmu cells PO DAILY 02/25/24 03/02/24 Unknown History billion cell capsule (Adult 50 Plus Probiotic) oregano oil 1,500 mg capsule mg PO 02/25/24 Unknown History soybean, fermented 50 mg capsule mg PO 02/25/24 Unknown History (Nattokinase) Exam Airway Mallampati Class: II TM Dist: >3cm Neck ROM: Full Assessment and Plan Assessment Anesthesia Assessment: Anesthesia Plan Discussed Final Anesthetic Review History of Problems with Anesthesia: Yes NPO: Yes ASA Class: II Final Preanesthetic Review: No Changes in Pt Med Stat, Meds/Allgs Chart Reviewed, Consent Obtained/Reviewed and Anes Risks/Benef Reviewed Patient Risk: Intermediate Procedure Risk: Intermediate Anesthetic Plan Anesthetic Plan: GA Disposition: Standard PACU
--- NOTE | 2024-03-02 12:07 | MHC.SHP ---
Pre-Procedural Eval Section A - 24 Hr Update-Section A only Date of Service: 03/02/24 The patient is an INPATIENT: No Changes since office visit: No Cold of Flu in the past 2 weeks, No New Medical Problems, No Changes in Medication and No Patient answered all questions The patient has been examined within 24 hours of the surgical procedure. The History & Physical has been completed within 30 days and I have reviewed it.: Yes Section B - Complete if H&P > 30 days Chief Complaint: Other diseases of bronchus, not elsewhere Allergies: Allergies Allergy/AdvReac Type Severity Reaction Status Date / Time No Known Allergies Allergy Verified 02/25/24 08:39 Plan I have reviewed the history and physical and performed a pertinent physical examination on my patient. No changes have occurred unless specified. Time Spent With Patient Time: Total time managing care of this patient today ____ minutes.
[2024-03-02 12:40] VITALS: BP 131/77; PULSE 96; RESP 16; TEMP 37.1; O2SAT 93; BMI 22.8
[2024-03-02] MEDS: Scopolamine 1.5 MG PATCH.TD.3 TRANSDERMA (13:14)
[2024-03-02] MEDS: Lactated Ringers 1,000 ML 100 ML IVCONT (13:19)
[2024-03-02 14:50] VITALS: PULSE 100; RESP 12; TEMP 36.6; O2SAT 99
[2024-03-02 14:55] VITALS: BP 114/66; PULSE 112; RESP 12; O2SAT 99
[2024-03-02 15:00] VITALS: BP 133/66; PULSE 111; RESP 12; O2SAT 99
[2024-03-02 15:05] VITALS: BP 124/78; PULSE 112; RESP 12; O2SAT 99
--- NOTE | 2024-03-02 15:15 | P.BOP_ITS ---
Brief Operative Note Date of Service: 03/02/24 Pre-op diagnosis: Bronchopneumonia Post-op diagnosis: other (severe mucus plugging Right bronchus intermedius, bronchopneumonia) Procedure: Bronchosocpy with forcep biopsies, washings, brushings and therapeutic cleaning Implants: Surgeon: Gilberto Ohara MD Anesthesia: GETA Was an Email Production Consultant used for this Procedure?: No Estimated blood loss (mL): 1 Pathology: other (RLL) Condition: stable Disposition: same day
--- NOTE | 2024-03-03 02:00 | OP_ITS ---
DATE OF SERVICE: 03/02/2024 SURGEON: Gilberto Ohara MD PREOPERATIVE DIAGNOSIS: Bronchopneumonia with mucus obstruction. POSTOPERATIVE DIAGNOSIS: PROCEDURE PERFORMED: Bronchoscopy with forceps biopsies, washings, brushings, therapeutic cleaning, and attempted basket. ESTIMATED BLOOD LOSS: COMPLICATIONS: ANESTHESIA: General endotracheal anesthesia provided. ASSISTANTS: None. SPECIMENS: ASA CLASSIFICATION: II. POSTOPERATIVE DIAGNOSES: Severe mucus plugging up to the bronchus intermedius, bronchopneumonia, and irregular mucosa. DESCRIPTION OF PROCEDURE: After the patient was adequately sedated, the flexible digital bronchoscope was inserted via the ET tube to the level of the main demetrius. The main demetrius appeared to be nice and sharp. No endotracheal lesions noted. There was significant amount of mucus burden after the level of the right mainstem bronchus just adjacent to the opening of the right upper lobe. After visualizing the left lung, which appeared to be clear except for some areas of scant mucus, then we focused on the right-sided obstruction. The patient did have a significant mucoid obstruction that was extensive. Involved the distal right mainstem bronchus, the whole bronchus intermedius, the right middle lobe, and all the right lower lobes. The mucus obstruction was purulent in appearance and thick, tenacious. Initially difficult to suction. We used a total of 8 mL of acetylcysteine 10% to try to break it down a little bit, which was only partially helpful. Using forceps, we were able to break up the mucus plug further. Subsequently after that, a microscopic brush was introduced into right lower lobe and sent to the appropriate location. Washings were also collected and after about 30 minutes, we were able to clear the full plug involving the right side. Once the mucus plug was removed, the endobronchial mucosa appeared normal, likely just reactive changes from having the chronic infection. No obvious endobronchial lesions noted, although just irregular mucosa. No foreign bodies appreciated. Cytologic brushing was then done at the level of the mucosa and the right lower lobe and bronchus intermedius. Sent to cytology. Also, using forceps, 2 endobronchial biopsies were collected from the right lower lobe. The patient did have a little bleeding and epinephrine was used with good hemostasis. The bronchoscope was then removed. The total endoscopic time approximately 40 minutes. Patient tolerated the procedure well, though with an extensive amount of mucous burden. No complications noted. Estimated blood loss was 1 mL and no x-ray warranted. MD TG Prakash/KRISTEL / [phone]
== END | disposition home or self-care (01) ==
PROVIDERS: PCP Internal Medicine; Visit Provider Hospitalist
PROC: 0BJ08ZZ Inspection of Tracheobronchial Tree, Via Natural or Artificial Opening Endoscopic (ICD-10-PCS; CPT 31622; principal; 2024-03-02 13:30)
DX: J18.0 Bronchopneumonia, unspecified organism (principal); J98.8 Other specified respiratory disorders; R05.3 Chronic cough; R06.02 Shortness of breath; R09.3 Abnormal sputum; I45.6 Pre-excitation syndrome; D72.819 Decreased white blood cell count, unspecified; Z85.3 Personal history of malignant neoplasm of breast
CPT/HCPCS: 31625; 31623; 87070; 87102; 87107; 87116; 87205; 87206; 88112; 88305; J0171; J1100; J2003; J2250; J2405; J2704; J3010

== ENCOUNTER → 2024-03-02 11:58 | Outpatient (BNV) | payer OTHER, SELFPAY | PROVIDERS: PCP Internal Medicine; Visit Provider Hospitalist | DX: J98.09 Other diseases of bronchus, not elsewhere classified (principal); J98.4 Other disorders of lung; J18.9 Pneumonia, unspecified organism | CPT/HCPCS: 31623; 31625; 31635; 31645 ==

== ENCOUNTER 2024-03-13 13:00 | Outpatient (AMB) | payer OTHER, SELFPAY ==
--- NOTE | 2024-03-13 13:06 | A.OFFVIS_ITS ---
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 Burial Needs Required: No Equipment Sterilizer: Equipment Sterilizer Present Accompanied by: Spouse Allergies No Known Allergies Allergy (Verified 03/02/24 12:36) Medication List - Last Reconciled 03/13/24 by Evangelist Valadez MD albuterol sulfate 90 mcg/actuation 2 puffs inhalation Q6H PRN ascorbate calcium (vitamin C) 1,000 mg PO DAILY cholecalciferol (vitamin D3) 25 mcg PO DAILY famotidine 20 mg PO DAILY 21 days [id number]-pducyyz-ast [id number] mg 1 cap PO DAILY lactobacillus combination no.9 (Adult 50 Plus Probiotic) 4,000 mmu cells PO DAILY naltrexone 4.5 mg PO DAILY oregano oil mg PO soybean, fermented (Nattokinase) mg PO turmeric (bulk) 95% (Curcumin) 500 ea miscellaneous DAILY HPI Comments Details: Thank you for referring Lori in cardiology consultation today for chest pain. 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 See this started having pressure in her chest starting a few months ago followed by 3 episodes of severe chest pain mostly at rest at nighttime before going to bed. She says she is generally very good health and exercises regularly and has been able to do that although heart rate was elevated. She subsequently during workup was found to have right-sided lower and middle lobe pneumonia and subsequently found to have significant mucus plugging for which she underwent bronchoscopy with extensive mucus lavage and subsequent microbiology suggestive of filamentous fungus. She has been treated extensively with antibiotics couple of months ago after she had seen a Lyme specialist in [place]. At that time she was noted to have abnormal test is or for multiple different atypical bacterial infection. She is continues to have mild chest pressure including today, EKG shows no ischemic changes. However she says she has 3 episodes of chest pain which are quite severe couple of episodes radiating to her right side of the jaw. One of the episode lasted for about an hour or 2. She was very concerned but did not seek emergency care. She comes for follow-up of the same. Family history 1 of the uncles at age 53 with a myocardial infarction while mowing the lawn. No other significant family history. She denies any palpitations, lightheadedness, syncope. No orthopnea, PND, leg edema. She has not had any episodes of palpitation since her ablation. She says since doing the bronchoscopy and mucus removal she feels better but not completely back to baseline. [facility] Medical History Airway obstruction Bronchopneumonia Right foot pain Fracture of fifth toe, left, closed Displaced fracture of fifth metatarsal bone URI (upper respiratory infection) Rib pain on right side COVID-19 virus infection Acute viral bronchitis Annual physical exam Colon cancer screening History of Qbswr-Rxjoxqtit-Wnjbp (WPW) syndrome Osteoarthritis of knees, bilateral Chronic neck pain Breast cancer, left Surgical History H/O cardiac radiofrequency ablation (~2013) History of lumpectomy of left breast H/O: hysterectomy Family History Father Cholangiocarcinoma Mother Myelofibrosis Social History Housing: House Are you a primary hemodialysis patient care specialist to a significant other at home: No Do you presently have visiting nurse or other home services: No Alcohol intake: current Alcohol intake frequency: does not drink Patient Tobacco Use Status: Never used Tobacco e-Cigarette/Vaping Use: Never Used Second Hand Smoke Exposure: No service: No Current occupational status: employed and retired Cognitive needs: No Hearing needs: No Vision needs: Yes Review of Systems Const Denies chills, Denies fatigue, Denies fever(s), Denies frequent falls, Denies weakness, Denies weight gain and Denies weight loss Eyes Denies loss of vision ENT Denies dizziness Card Denies chest pain, Denies leg edema, Denies lightheadedness, Denies palpitations , Denies dyspnea, Denies dyspnea on exertion, Denies orthopnea and Denies other (loss of consciousness) Resp Denies cough, Denies dyspnea, Denies dyspnea on exertion and Denies wheezing GI Denies hematochezia and Denies change in stool character Denies urinary frequency and Denies dysuria Musc Denies abnormal gait, Denies muscle weakness, Denies numbness, Denies radiating pain into limb and Denies tingling Skin/Breast Denies nail changes and Denies rash Neuro Denies abnormal gait, Denies dizziness, Denies frequent falls, Denies loss of vision, Denies memory loss, Denies numbness, Denies tingling and Denies weakness Psych Denies depression and Denies memory loss Endo Denies fatigue and Denies palpitations Cal/Lymph Reports easy bruising and Reports other (anemia) Aller/Immun Denies wheezing Physical Exam Vital Signs: Last Vital Signs Pulse 75 03/13/24 13:07 BP 116/78 03/13/24 13:07 BMI result Body Mass Index 23.4 Const General: cooperative, comfortable, no acute distress, alert, awake, Physically active and well groomed Nutritional Appearance: average body habitus Orientation/consciousness: patient oriented x3 Limitations: no limitations HEENT Head: Yes normocephalic and Yes atraumatic Neck Neck: Yes trachea midline, Yes supple and Yes no JVD Resp Effort & Inspection: normal respiratory effort Auscultation: bronchial breath sounds on the right Cardio Jugular venous distension: no JVD Rate: regular rate Rhythm: regular rhythm Heart sounds: S1 normal heart sound present, S2 normal heart sound present, no click, no gallops, no murmurs and no rubs GI Auscultation: normal bowel sounds Skin General skin exam: no rashes or lesions noted Neuro General: patient oriented x3 and no focal motor deficits Extrem General: Yes no clubbing, cyanosis or edema Psych Appearance: grossly normal Office Procedures EKG Details: EKG shows normal sinus rhythm with as pattern in lead V1 V2 otherwise normal EKG with no pre-excitation or ST T wave changes suggestive of ischemia [id number], Complete Assessment & Plan Assessment & Plan (1) Atypical chest pain: Code(s): R07.89 - Other chest pain Plan: Atypical chest pain this middle-aged woman with 3 episodes of concerning happening at rest mostly with family history of premature coronary artery disease as well as hyperlipidemia as a risk factor. She otherwise overall has no other significant abnormalities. EKGs does not show any ischemic changes ongoing chest pressure. Most likely symptoms related to a bronchopneumonia and pulmonary inflammation infection. Although myocardial ischemia needs to be ruled out. Will suggest a exercise treadmill stress test to evaluate for myocardial ischemia. Also suggest an echocardiogram to evaluate LV systolic and diastolic function to evaluate for any valvular dysfunction to explain her chest pain as well as to evaluate for pulmonary hypertension. These tests will be scheduled in near future. This was discussed with her. She understands and agrees. If these are negative can further pursue evaluation for coronary atherosclerosis coronary calcium score. See below. (2) Hypercholesterolemia: Code(s): E78.00 - Pure hypercholesterolemia, unspecified Category: Medical Plan: Hyperlipidemia which is mild. Currently not a target for treatment unless she has evidence of coronary atherosclerosis by coronary calcium score. If his stress test is negative will pursue further evaluation with coronary calcium score to further guide therapy for hyperlipidemia given her family history. This was discussed with her. Meanwhile continue lifestyle modification with exercise recommended. Will follow up in the clinic in 2 months time, sooner p.r.n.. Thank you for allowing me to partake in his care Coding Level of Care Code New Pt Level 4 (09566) Diagnoses Atypical chest pain R07.89 Hypercholesterolemia E78.00 CPT Codes EKG - CPT: 11103-[id number], Complete ([id number])
[2024-03-13 13:07] VITALS: BP 116/78; PULSE 75; BMI 23.4
== END 2024-03-13 13:48 | disposition home or self-care (01) ==
LOC: HO.HCS 13:00
PROVIDERS: PCP Internal Medicine; Visit Provider Internal Medicine Cardiovascular Disease
DX: R07.89 Other chest pain (principal); E78.00 Pure hypercholesterolemia, unspecified
CPT/HCPCS: 93010; 99214

== ENCOUNTER → 2024-03-13 13:00 | Outpatient (BNVA) | payer OTHER, SELFPAY | PROVIDERS: PCP Internal Medicine; Visit Provider Internal Medicine Cardiovascular Disease | DX: R07.89 Other chest pain (principal); E78.00 Pure hypercholesterolemia, unspecified | CPT/HCPCS: 93005 ==

== ENCOUNTER 2024-03-16 11:00 | Outpatient (AMB) | payer OTHER, SELFPAY ==
[2024-03-16 11:05] VITALS: BP 98/64; PULSE 78; O2SAT 98
--- NOTE | 2024-03-16 11:05 | A.OFFVIS_ITS ---
Vital Signs 03/16/24 11:05 Weight 164 lb 3.91 oz BP 98/64 Blood Pressure Location Lt brachial Position Sitting Pulse 78 Pulse Source Pulse Oximeter Pulse Oximetry (%) 98 Oxygen Delivery Method Room Air Intake Visit Reasons: s/p Bronch Allergies No Known Allergies Allergy (Verified 03/16/24 11:10) Medication List - Last Reconciled 03/16/24 by Cindy Orozco LPN albuterol sulfate 90 mcg/actuation 2 puffs inhalation Q6H PRN ascorbate calcium (vitamin C) 1,000 mg PO DAILY cholecalciferol (vitamin D3) 25 mcg PO DAILY famotidine 20 mg PO DAILY 21 days [id number]-hf-9-fti-fna-egyahzt-ast [id number] mg 1 cap PO DAILY lactobacillus combination no.9 (Adult 50 Plus Probiotic) 4,000 mmu cells PO DAILY naltrexone 4.5 mg PO DAILY oregano oil mg PO soybean, fermented (Nattokinase) mg PO turmeric (bulk) 95% (Curcumin) 500 ea miscellaneous DAILY HPI Comments Details: The patient is a 58 year woman with a known history of breast cancer, WPW, in addition to leukopenia who was being worked up for tick-borne diseases. She has been not feeling well now for about a year. She has had a worsening cough at times productive moderate to severe. In addition to that she has had some decreased energy and chest discomfort. Over the summer that she went to a specialist and she was diagnosed with chronic legionnaires in addition to that she was given a diagnosis of tick-borne diseases and she was started on antibiotic regimen including rifampin, azithromycin in addition to doxycycline. She did tolerate the antibiotics but she started developing again worsening cough congestion shortness breath and chest discomfort. Of which point the patient did have imaging studies done. I did personally review a CT scan of the chest that she had which appears to have a blockage of theright sided bronchus intermedius in addition to that significant mucus plugging of the right lower lobe along with airspace disease consistent with a bronchopneumonia. No lymphadenopathy appreciated. No other involvement of disease. On further questioning she denies any hemoptysis. Sometimes though she gets a metallic taste in her mouth. In addition to that she denies any event. Based on the imaging studies in her symptoms I did recommend bronchoscopy at this point to try to delineate the obstruction self and provide her therapeutic and diagnostic procedure. The patient is agreeable at this time. 03/16/2024 the patient is here for a pulmonary follow-up visit. Overall she is doing better after the bronchoscopy. She had severe mucus plugging of the right mainstem bronchus bronchus intermedius and right lower lobe and right middle lobe airways. The biopsies were consistent with eosinophilic infiltration likely allergic. The microbiology was positive for Aspergillus fumigatus. On further history patient apparently is getting the bathroom in reducing it as they found significant amount of black mold likely bringing up the possibility of allergic bronchopulmonary aspergillosis with significant mucus plugs, ?hand and glove ?. She has had some coughing spells since we last spoke with the she is doing a lot better. A 1 point she did feel significant pulling and tugging on the right chest from coughing hurting herself. Now her to take a deep breath. She may have fractured rib. She will continue to monitor. If that does not get better she should come in for an x-ray. In the meantime will have her undergo additional blood work including hypersensitivity panel allergy panel for mold specially for Aspergillus to see if she has evidence of allergic bronchopulmonary aspergillosis (ABPA). Her eosinophil count is already significantly elevated. She would also need to have an elevated IgE and Aspergillus. Still presents as well. Therefore follow-up with those results. In the meantime the severity of disease will go ahead and treated with voriconazole in addition to prednisone. The patient will also start a maintenance inhaler with Symbicort to try to minimize the inflammatory changes. The patient follow-up in 4 weeks. If she has any issues prior to that she will call for an earlier assessment. She will talk to her construction company and also will look into a mold abatement company. [facility] Medical History (Updated 03/16/24 @ 19:31 by Gilberto Ohara MD) Allergies ABPA (allergic bronchopulmonary aspergillosis) Airway obstruction Bronchopneumonia Right foot pain Fracture of fifth toe, left, closed Displaced fracture of fifth metatarsal bone URI (upper respiratory infection) Rib pain on right side COVID-19 virus infection Acute viral bronchitis Annual physical exam Colon cancer screening History of Zgnmx-Wcuvyvsbu-Rntjn (WPW) syndrome Osteoarthritis of knees, bilateral Chronic neck pain Breast cancer, left Surgical History H/O cardiac radiofrequency ablation (~2013) History of lumpectomy of left breast H/O: hysterectomy Family History Father Cholangiocarcinoma Mother Myelofibrosis Social History Housing: House Are you a primary critical care nurse practitioner to a significant other at home: No Do you presently have visiting nurse or other home services: No Alcohol intake: current Alcohol intake frequency: does not drink Patient Tobacco Use Status: Never used Tobacco e-Cigarette/Vaping Use: Never Used Second Hand Smoke Exposure: No service: No Current occupational status: employed and retired Cognitive needs: No Hearing needs: No Vision needs: Yes Review of Systems Const Denies fever(s) Eyes Reports no additional complaints ENT Reports nasal congestion Card Reports chest pain and Reports dyspnea on exertion Resp Reports change in phlegm color, Reports chest congestion, Reports cough, Denies hemoptysis, Reports dyspnea on exertion and Denies wheezing GI Reports no additional complaints Musc Reports myalgias Skin/Breast Denies rash Neuro Reports no additional complaints Endo Reports no additional complaints Cal/Lymph Reports no additional complaints Aller/Immun Denies wheezing Physical Exam Vital Signs: Last Vital Signs Pulse 78 03/16/24 11:05 BP 98/64 03/16/24 11:05 Pulse Ox 98 03/16/24 11:05 Oxygen Delivery Method Room Air 03/16/24 11:05 Const General: comfortable HEENT Head: Yes normocephalic Neck Neck: Yes supple Chest Chest palpation & inspection: normal inspection of the chest Resp Effort & Inspection: normal respiratory effort Auscultation: rhonchi and diminished lung sounds Cardio Heart sounds: S1 normal heart sound present and S2 normal heart sound present GI Palpation (GI): Soft to palpation Skin General skin exam: no rashes or lesions noted Extrem General: Yes no clubbing, cyanosis or edema Results Reviewed Results Reviewed: personally reviewed all pathology, cytology, microbiology CT chest personally reviewed by be with extensive airway obstruction on the right Assessment & Plan Assessment & Plan (1) ABPA (allergic bronchopulmonary aspergillosis): Code(s): B44.81 - Allergic bronchopulmonary aspergillosis Category: Medical (2) Allergies: Code(s): T78.40XA - Allergy, unspecified, initial encounter Category: Medical Qualifiers: Encounter type: initial encounter Qualified Code(s): T78.40XA - Allergy, unspecified, initial encounter (3) Chest pain: Code(s): R07.9 - Chest pain, unspecified Category: Medical Qualifiers: Chest pain type: chest pain on breathing Qualified Code(s): R07.1 - Chest pain on breathing (4) Bronchopneumonia: Code(s): J18.0 - Bronchopneumonia, unspecified organism Category: Medical (5) Airway obstruction: Code(s): J98.8 - Other specified respiratory disorders Category: Medical Plan CPT with acapella valve start voriconazole start prednisone taper start symbicort bloodwork and allergy testing ?ABPA CXR if chest pain is no better F/U 4-6 weeks Orders: Orders Complete Blood Count Auto Diff Today B44.81 - Allergic bronchopulmonary aspergillosis, T78.40XA - Allergy, unspecified, initial encounter Basic Metabolic Panel Today B44.81 - Allergic bronchopulmonary aspergillosis, T78.40XA - Allergy, unspecified, initial encounter Liver Panel Today B44.81 - Allergic bronchopulmonary aspergillosis, T78.40XA - Allergy, unspecified, initial encounter Immunoglobulin E Today B44.81 - Allergic bronchopulmonary aspergillosis, T78.40XA - Allergy, unspecified, initial encounter Erythrocyte Sedimentation Rate Today B44.81 - Allergic bronchopulmonary aspergillosis, T78.40XA - Allergy, unspecified, initial encounter Hypersensitive Pneumonitis Prf Today B44.81 - Allergic bronchopulmonary aspergillosis, R91.8 - Other nonspecific abnormal finding of lung field, T78.40XA - Allergy, unspecified, initial encounter Immunoglobulins,IgG IgA IgM Today B44.81 - Allergic bronchopulmonary aspergillosis, T78.40XA - Allergy, unspecified, initial encounter Resp Allergy Profile Region I Today B44.81 - Allergic bronchopulmonary aspergillosis, R91.1 - Solitary pulmonary nodule, T78.40XA - Allergy, unspecified, initial encounter XR chest 2V Today R07.9 - Chest pain, unspecified Medications: New voriconazole administer on empty stomach, at least 1 hour before or after meal(s) 200 mg PO Q12H 56 tabs 0RF 4 weeks budesonide-formoterol 160-4.5 mcg/actuation (Symbicort) 2 puffs inhalation BID 10.2 grams 11RF 30 days J44.89 - Other specified chronic obstructive pulmonary disease prednisone PO daily; Take 4 tabs x 3 days, then 3 tabs x 3 days, then 2 tabs daily x 3 days, then 1 tab x 3 days to complete. 30 tabs 0RF 12 days Coding Level of Care Code Est Pt Level 5 (84323) Diagnoses ABPA (allergic bronchopulmonary aspergillosis) B44.81 Allergy, initial encounter T78.40XA Encounter type: initial encounter Chest pain on breathing R07.1 Chest pain type: chest pain on breathing Bronchopneumonia J18.0 Airway obstruction J98.8 Time Spent (min) 30
== END 2024-03-16 11:49 | disposition home or self-care (01) ==
LOC: HO.HPS 11:00
PROVIDERS: PCP Internal Medicine; Visit Provider Hospitalist
DX: B44.81 Allergic bronchopulmonary aspergillosis (principal); R07.1 Chest pain on breathing; J18.0 Bronchopneumonia, unspecified organism; J98.8 Other specified respiratory disorders
CPT/HCPCS: 99214

== ENCOUNTER 2024-03-16 11:00 | Outpatient (REF) | payer OTHER, SELFPAY ==
[2024-03-16 12:33] LABS: MANUAL DIFF FLAG NO
[2024-03-16 12:49] LABS: Basophils Absolute Auto 0.1 X10*3/uL (0.0-0.2); Basophils Percent Auto 1.3 % (0-2); Eosinophils Absolute Auto 0.2 X10*3/uL (0.0-0.4); Eosinophils Percent Auto 3.4 % (0-4); Hematocrit 40.7 % (37.0-47.0); Hemoglobin 13.8 g/dl (12.0-16.0); Imm Gran Abs Auto 0.02 X10*3/uL (0.00-0.03); Imm Gran Pct Auto 0.3 % (0.0-0.4); Lymphocytes Absolute Auto 1.9 X10*3/uL (1.2-4.9); Lymphocytes Percent Auto 30.1 % (20-40); Mean Corpuscular HGB Conc 33.9 g/dl (31.0-35.0); Mean Corpuscular Hemoglobin 28.9 pg (27.0-33.0); Mean Corpuscular Volume 85.1 fL (80.0-98.0); Mean Platelet Volume 9.6 fL (9.4-12.3); Monocytes Absolute Auto 0.4 X10*3/uL (0.1-1.2); Neutrophils Absolute Auto 3.6 x10*3/uL (2.0-8.3); Neutrophils Percent Auto 57.9 % (45-73); Platelet Count 349 X10*3/uL (160-400); Red Blood Count 4.78 X10*6/uL (4.20-5.50); Red Cell Distribution Width 12.8 % (11.0-16.0); White Blood Count 6.2 X10*3/uL (4.8-10.8)
[2024-03-16 13:19] LABS: Alanine Aminotransferase 13 U/L (0-31); Albumin Level 4.1 g/dL (3.5-5.0); Alkaline Phosphatase 87 U/L (39-117); Anion Gap 13 (12-20); Aspartate Amino Transferase 18 U/L (5-31); Bilirubin Direct < 0.2 mg/dL (0.0-0.5); Bilirubin Total 0.2 mg/dL (0.0-1.0); Blood Urea Nitrogen 19 mg/dL (9-16); Calcium 9.6 mg/dL (8.4-10.2); Carbon Dioxide 25 mmol/L (22-29); Chloride 105 mmol/L (96-108); Estimated Glomerular Filt Rate > 60; Glucose Random 89 mg/dL (60-115); Potassium 3.9 mmol/L (3.3-5.1); Sodium 139 mmol/L (135-145); Total Protein 7.3 g/dL (6.5-8.0)
[2024-03-16 13:34] LABS: Erythrocyte Sedimentation Rate 6 MM/HR (0-20)
[2024-03-18 01:54] LABS: IgA 205 mg/dL (47-310); IgG 1167 mg/dL (600-1640); IgM 138 mg/dL (50-300)
[2024-03-20 21:08] LABS: Class Alternaria alternata 0; Class Aspergillus fumigatus 2; Class Bermuda Grass 0; Class Birch 2; Class Cat Dander 0; Class Cladosporium herbarum 0; Class Cockroach 0/1; Class Common Ragweed 2; Class Cottonwood 0; Class Derm. pterony 2; Class Dermatophagoides farinae 2; Class Dog Dander 0; Class Elm 0; Class Maple Box Elder 0; Class Mountain Cedar 0; Class Mouse Urine Protein 0; Class Mugwort 2; Class Oak 2; Class Penicillium crysogenum 0; Class Rough Pigweed 0; Class Sheep Sorrel 0; Class Sycamore 0; Class Timothy Grass 0; Class Walnut Tree 0; Class White Ash 0; Class White Mulberry 0; D001 IgE D pteronyssinus 1.07 kU/L; E001 - IgE Cat Dander <0.10 kU/L; E005 - IgE Dog Dander <0.10 kU/L; E072-IgE Mouse Urine <0.10 kU/L; G002 IgE Bermuda Grass <0.10 kU/L; G006 - IgE Timothy Grass <0.10 kU/L; I006-IgE Cockroach, German 0.22 kU/L; Immunoglobulin E 227 kU/L (<OR=114); M001 IgE Penicillium chrysogen <0.10 kU/L; M002 - IgE Cladosporium herbar <0.10 kU/L; M003 - IgE Aspergillus fumigat 2.63 kU/L; M006 - IgE Alternaria alternat <0.10 kU/L; T001 IgE Maple/Box Elder <0.10 kU/L; T003 IgE Common Silver Birch 2.94 kU/L; T006 - IgE Cedar, Mountain <0.10 kU/L; T007 - IgE Oak, White 1.36 kU/L; T008 IgE Elm, American <0.10 kU/L; T010 - IgE Walnut <0.10 kU/L; T011 - IgE Maple Leaf Sycamore <0.10 kU/L; T014 - IgE Cottonwood <0.10 kU/L; T015 - IgE Ash, White <0.10 kU/L; T070 - IgE White Mulberry <0.10 kU/L; W001 - IgE Ragweed, Short 1.21 kU/L; W006 - IgE Mugwort 0.78 kU/L; W014 IgE Pigweed, Common <0.10 kU/L; W018 IgE Sheep Sorrel <0.10 kU/L
[2024-03-28 10:54] LABS: Asperg fumigatus Precip Abs NEGATIVE (NEGATIVE); Micropoly faeni Abs NEGATIVE (NEGATIVE); Pigeon serum Abs NEGATIVE (NEGATIVE); Saccharo pora viridis Abs NEGATIVE (NEGATIVE); Thermo candidus Abs NEGATIVE (NEGATIVE); Thermoa vulgaris #1 NEGATIVE (NEGATIVE)
== END 2024-03-16 11:01 | disposition home or self-care (01) ==
LOC: HO.LAB 11:00
PROVIDERS: PCP Internal Medicine; Visit Provider Hospitalist
DX: B44.81 Allergic bronchopulmonary aspergillosis (principal); T78.40XA Allergy, unspecified, initial encounter; R91.8 Other nonspecific abnormal finding of lung field; R91.1 Solitary pulmonary nodule
CPT/HCPCS: 36415; 80048; 80076; 82784; 82785; 85025; 85652; 86003; 86331; 86606; 86609

== ENCOUNTER 2024-03-22 09:12 | Outpatient (AMB) | payer OTHER, SELFPAY ==
[2024-03-22 09:24] VITALS: BP 114/78; PULSE 77; O2SAT 98; BMI 23.5
--- NOTE | 2024-03-22 09:24 | A.OFFPC_ITS ---
Vital Signs 03/22/24 09:24 Height 5 ft 10 in Weight 164 lb BMI 23.5 BP 114/78 Blood Pressure Location Lt brachial Position Sitting Pulse 77 Pulse Source Pulse Oximeter Pulse Oximetry (%) 98 Oxygen Delivery Method Room Air Intake Visit Reasons: PE Allergies No Known Allergies Allergy (Verified 03/22/24 09:24) Medication List - Last Reconciled 03/22/24 by Tripp Palomino MD albuterol sulfate 90 mcg/actuation 2 puffs inhalation Q6H PRN ascorbate calcium (vitamin C) 1,000 mg PO DAILY budesonide-formoterol 160-4.5 mcg/actuation (Symbicort) 2 puffs inhalation BID 30 days cholecalciferol (vitamin D3) 25 mcg PO DAILY famotidine 20 mg PO DAILY 21 days [id number]-[id number] mg 1 cap PO DAILY lactobacillus combination no.9 (Adult 50 Plus Probiotic) 4,000 mmu cells PO DAILY naltrexone 4.5 mg PO DAILY oregano oil mg PO prednisone PO daily; Take 4 tabs x 3 days, then 3 tabs x 3 days, then 2 tabs daily x 3 days, then 1 tab x 3 days to complete. 12 days soybean, fermented (Nattokinase) mg PO turmeric (bulk) 95% (Curcumin) 500 ea miscellaneous DAILY voriconazole 200 mg PO Q12H 4 weeks Tobacco use date assessed: 09/07/23 Dental Screening Dental Screen Date: 03/22/24 Did you have a dental visit in the last 12 months?: Yes Did you have a dental problem in the last 6 months where you did not have access to dental care?: No Was dental information given to patient?: Patient has dentist HPI PE HPI Details 58-year-old female with a history of lef t breast cancer GERD hypercholesterolemia osteoporosis coming in for follow-up. August 2023 last seen. Review of the notes was seen by Pulmonary 03/16/2024 for cough diagnosis of chronic legionnaires and was treated with rifampin, azithromycin in addition to doxycycline. CT scan done February 22Extensive mucous plugging, with extension into the right middle and lower lobe bronchi. There are infiltrates and atelectatic changes with groundglass opacity and mucous plugging of anterior right lower lobe. A more nodular consolidation is observed in the infrahilar medial right lower lobe with above noted dimensions, also demonstrating adjacent patchy groundglass opacities and mucous plugging. Close follow-up recommended. Atelectatic changes. Small mediastinal nodes. Slightly enlarged right hilar nodes. But the cough persisted noted to have a blockage of the right side bronchus intermedius diagnosis of bronchopneumonia bronchoscopy advised. Biopsies consistent with eosinophilic infiltration likely allergic positive for Aspergillus fumigatus. States bathroom had black mold. Patient was treated for voriconazole with prednisone placed on Symbicort.. Patient was also seen by Cardiology March for advised exercise treadmill stress test and e chocardiogram if the stress test would be negative will further evaluate with coronary calcium scoring. Patient also follows up with Hematology-Oncology February 22 2024 Patient also has seen gastroenterology september 2023 for the bloating sensation had improvement with Flagyl continuing with probiotic supplementation. occ dizzy, chest pain, not particularly with exercise , does elliptical no cp, PFSH Medical History (Updated 03/22/24 @ 09:41 by Tripp Palomino MD) Annual physical exam Allergies ABPA (allergic bronchopulmonary aspergillosis) Airway obstruction Bronchopneumonia Right foot pain Fracture of fifth toe, left, closed Displaced fracture of fifth metatarsal bone URI (upper respiratory infection) Rib pain on right side COVID-19 virus infection Acute viral bronchitis Colon cancer screening History of Bemnb-Hzznesndi-Jimfr (WPW) syndrome Osteoarthritis of knees, bilateral Chronic neck pain Breast cancer, left Surgical History H/O cardiac radiofrequency ablation (~2013) History of lumpectomy of left breast H/O: hysterectomy Family History (Updated 03/22/24 @ 09:49 by Tripp Palomino MD) Father Cholangiocarcinoma Atrial fibrillation Mother Myelofibrosis Paternal Uncle Myocardial infarct Social History (Updated 03/22/24 @ 09:50 by Tripp Palomino MD) Housing: House Are you a primary career development facilitator to a significant other at home: No Do you presently have visiting nurse or other home services: No Alcohol intake: current Alcohol intake frequency: does not drink Comment: last 2022 Patient Tobacco Use Status: Never used Tobacco Tobacco use type: Cigarette e-Cigarette/Vaping Use: Never Used Second Hand Smoke Exposure: No service: No Current occupational status: employed and retired Cognitive needs: No Hearing needs: No Vision needs: Yes Questionnaire PHQ-9 Over the last 2 weeks, how often have you been bothered by any of the following problems? 1. Little interest or pleasure in doing things: not at all 2. Feeling down, depressed, or hopeless: not at all 3. Trouble falling or staying asleep, or sleeping too much: not at all 4. Feeling tired or having little energy: not at all 5. Poor appetite or overeating: not at all 6. Feeling bad about yourself - or that you are a failure or have let yourself or your family down: not at all 7. Trouble concentrating on things, such as reading the newspaper or watching television: not at all 8. Moving or speaking so slowly that other people could have noticed. Or the opposite - being so fidgety or restless that you have been moving around a lot more than usual: not at all 9. Thoughts that you would be better off or of hurting yourself in some way: not at all Total score: 0 Source: Developed by Drs. Florian Tapia, Ana Krishnan, Evangelist Alva and colleagues, with an educational violeta from behaview. Thrive Questionnaire Date Thrive assessed: 03/22/24 I am a: Patient What is your living situation today?: I have a place to live, but I am worried about losing it in the future Within the past 12 months, did the food you bought not last and you didn't have the money to get more?: Never true Within the past 12 months, did you worry whether your food would run out before you got money to buy more?: Never true Do you have trouble paying for medicines?: No Do you have trouble getting transportation to medical appointments?: No Do you have trouble paying your heating and electricity bill?: No Do you have trouble taking care of your child, family member or friend?: No Do you have trouble with day-to-day activities such as bathing, preparing meals, shopping, managing finances, etc.?: No Are you currently unemployed and looking for a job?: No Are you interested in more education?: No Please select the resources that you would like help with: None Currently or been in a relationship where the following occur: No concerns reported THRIVE Score: 1 AUDIT C Alcohol Use Questionnaire (AUDIT-C) 1. How often do you have a drink containing alcohol?: Monthly or less 2. How many drinks containing alcohol do you have on a typical day when you are drinking?: 1 or 2 3. How often do you have six or more drinks on one occasion?: Never Total Score: 1 CORINE-7 AMB Questionnaire CORINE-7 Date CORINE - 7 assessed: 03/22/24 Feeling nervous, anxious, or on edge: 1 = Several days Not being able to stop or control worryin = Several days Worrying too much about different things: 1 = Several days Trouble relaxin = Several days Being so restless that it is hard to sit still: 0 = Not at all Becoming easily annoyed or irritable: 0 = Not at all Feeling afraid as if something awful might happen: 1 = Several days Total CORINE-7 score (0-4 normal; 5-9 mild; 10-14 moderate; 15-21 severe): 5 Source: Developed by Drs. Florian Tapia, Ana Krishnan, Evangelist Alva and colleagues, with an educational violeta from behaview. Review of Systems Const Denies poor appetite and Denies weakness Eyes Denies no additional complaints ENT Reports Normal hearing present, Denies dizziness, Denies nasal congestion, Denies tinnitus and Denies sore throat Card Denies chest pain, Denies syncope, Denies rapid heart rate and Denies dyspnea Resp Denies cough and Denies dyspnea GI Denies change in stool character, Reports constipation, Denies diarrhea, Denies nausea and Denies vomiting Denies urinary frequency, Denies difficulty voiding and Denies dysuria Neuro Reports Normal hearing present, Denies confusion, Denies dizziness, Denies syncope and Denies weakness Psych Denies confusion Physical exam (Primary Care) Vital Signs: Last Vital Signs Pulse 77 03/22/24 09:24 BP 114/78 03/22/24 09:24 Pulse Ox 98 03/22/24 09:24 Oxygen Delivery Method Room Air 03/22/24 09:24 BMI result Body Mass Index 23.5 Tobacco/Smoking Status: Tobacco use Status Tobacco use date assessed 09/07/23 03/22/24 09:25 Patient Tobacco Use Status Never used Tobacco 03/22/24 09:25 Tobacco use type Cigarette 11/13/24 09:25 e-Cigarette/Vaping Use Never Used 03/22/24 09:25 PHQ-9: PHQ-9 Score PHQ-9: Total score 0 03/22/24 09:25 Thrive Assessment: Date of Thrive Assessment Date Thrive assessed 03/22/24 03/22/24 09:25 Currently or been in a relationship where the following occur: No concerns reported Const General: No confusion Orientation/consciousness: No confusion HENMT Head: Yes normocephalic Ears: external ears normal and TM's normal bilaterally Face and sinus: Yes normal facial exam Mouth: moist mucous membranes Throat: Yes tonsils normal Eyes Conjunctivae: conjunctivae normal Pupils: Equal, round and reactive pupils present and Pupil accommodation reflex normal Direct Ophthalmoscopy: normal light reflex Neck Neck: No lymphadenopathy Thyroid: Thyroid normal Chest Chest palpation & inspection: normal inspection of the chest Resp Effort & Inspection: normal respiratory effort and no audible wheezes Auscultation: clear to auscultation bilaterally, no crackles, no wheezes and lung sounds not diminished Cardio Rate: regular rate Rhythm: regular rhythm Peripheral pulses: radial pulses present and dorsalis pedis present GI Palpation (GI): no masses Auscultation: normal bowel sounds and normoactive bowel sounds Rectal Exam - Female: deferred Skin General skin exam: no rashes or lesions noted Rashes: no rashes Neuro General: No confusion Cranial nerves: Yes Equal, round and reactive pupils present and Yes Normal hearing present Cognition (Neuro): normal cognition Gait exam (Neuro): Normal gait present Motor exam (neuro): 5/5 motor strength present throughout Deep tendon reflexes (DTR's): Right brachioradialis reflex intensity grade: 2+, Left brachioradialis reflex intensity grade: 2+, Right patellar reflex intensity grade: 2+ and Left patellar reflex intensity grade: 2+ Extrem General: No edema Coding Level of Care Code Est Pt Prev Care 40-64y(40302) Diagnoses Malignant neoplasm of left female breast, unspecified estrogen receptor status, unspecified site of breast C50.912 Breast location: unspecified site of breast Estrogen receptor status: unspecified Patient sex: female Other osteoporosis without current pathological fracture M81.8 Osteoporosis type: other Presence of current pathological fracture: without current pathological fracture Gastroesophageal reflux disease without esophagitis K21.9 Esophagitis presence: without esophagitis ABPA (allergic bronchopulmonary aspergillosis) B44.81 Hypercholesterolemia E78.00 Chronic leukopenia D72.819 Annual physical exam Z00.00 Assessment & Plan Assessment & Plan (1) Breast cancer, left: Comment: Intermediate grade ductal carcinoma insitu 2016 lumpectomy and tamoxifen(no radiation) [facility] Code(s): C50.912 - Malignant neoplasm of unspecified site of left female breast Category: Medical Qualifiers: Breast location: unspecified site of breast Estrogen receptor status: unspecified Patient sex: female Qualified Code(s): C50.912 - Malignant neoplasm of unspecified site of left female breast Plan: Continue to follow-up with Hematology-Oncology (2) Osteoporosis: Comment: 03/29/2023 Code(s): M81.0 - Age-related osteoporosis without current pathological fracture Category: Medical Qualifiers: Osteoporosis type: other Presence of current pathological fracture: without current pathological fracture Qualified Code(s): M81.8 - Other osteoporosis without current pathological fracture Plan: Up-to-date with bone density 03/29/2023 discussed about calcium and vitamin-D. (3) GERD (gastroesophageal reflux disease): Code(s): K21.9 - Gastro-esophageal reflux disease without esophagitis Category: Medical Qualifiers: Esophagitis presence: without esophagitis Qualified Code(s): K21.9 - Gastro-esophageal reflux disease without esophagitis Plan: Avoid the foods that causes that usually spicy foods, tomato products, juices, coffee, soda and foods that your sensitive to. After eating do not lie down, allow 3-4 hours before in lie down. And keep the head of bed above 30 degrees to avoid the acid from going up. (4) ABPA (allergic bronchopulmonary aspergillosis): Code(s): B44.81 - Allergic bronchopulmonary aspergillosis Category: Medical Plan: Patient is presently being worked up by Pulmonary on Symbicort albuterol inhaler. Has been treated with voriconazole and prednisone (5) Hypercholesterolemia: Code(s): E78.00 - Pure hypercholesterolemia, unspecified Category: Medical Plan: Avoid fried foods, chicken skin, eggs, butter margarine, pastries and meat. Be it pork or beef they have a lot of cholesterol LDL goal of less than 130 and triglyceride of less than 150 (6) Chronic leukopenia: Code(s): D72.819 - Decreased white blood cell count, unspecified Category: Medical Plan: Continuing to monitor (7) Annual physical exam: Code(s): Z00.00 - Encounter for general adult medical examination without abnormal findings Category: Medical Plan: Patient is advised to eat healthy, keep well hydrated, keep active and have adequate sleep. Orders: Orders Free T4 (Free Thyroxine) Today E78.00 - Pure hypercholesterolemia, unspecified Lipid Panel Today E78.00 - Pure hypercholesterolemia, unspecified Thyroid Stimulating Hormone Today E78.00 - Pure hypercholesterolemia, unspecified Vitamin B12 and Folate Today E78.00 - Pure hypercholesterolemia, unspecified Vitamin D 25-OH Total Today E78.00 - Pure hypercholesterolemia, unspecified
== END 2024-03-22 10:13 | disposition home or self-care (01) ==
PROVIDERS: PCP Internal Medicine; Visit Provider Internal Medicine
DX: Z00.00 Encounter for general adult medical examination without abnormal findings (principal); B44.81 Allergic bronchopulmonary aspergillosis; C50.912 Malignant neoplasm of unspecified site of left female breast; M81.8 Other osteoporosis without current pathological fracture; K21.9 Gastro-esophageal reflux disease without esophagitis; E78.00 Pure hypercholesterolemia, unspecified; D72.819 Decreased white blood cell count, unspecified

== ENCOUNTER → 2024-04-10 08:10 | Outpatient (REF) | payer OTHER, SELFPAY ==
--- NOTE | 2024-04-10 08:13 | CA_ITS ---
Acquisition Time: 2024-04-10 09:22:23 Total Exercise Time: 00:11:01 Test Indications: CP Medications: SEE H Protocol: DEBI Max HR: 164 BPM 100% of Pred: 164 BPM Max BP: 128/050 mmHG Max Work Load: 13.4 METS Exercise stress test with exercise 11 mins 1 sec of Debi Protocol, achieving 100% MPHR, without any anginal symptoms, without any arrythmias, with normotensive response to exercise. Without EKG changes meeting criteria for ischemia. Test reviewed with Dr. oTlbert. Referred By: Evangelist Valadez Overread By: KEIRY JEAN BAPTISTE
--- NOTE | 2024-04-10 08:13 | CA_ITS ---
Transthoracic Echocardiogram Patient (Last, First, Middle): Lori Angel A Gender: Female Date of : 1965 Age: 58 Procedure Date: 04/10/2024 Procedure Type: Transthoracic Echocardiogram Location: OP Height: 177.8 cm Weight: 72.12 kg BSA: 1.89 m2 Heart Rate: bpm BP: 110 / 70 mmHg Security Sales Consultant: PENELOPE Referring MD: Evangelist Valadez MD Symptoms: R07.89 - Other chest pain Study Quality: Adequate ECG Rhythm: Sinus Conclusions: - The left ventricular systolic function is normal. The calculated ejection fraction is 62% by biplane method. - No obvious valvular pathology seen on this study. Findings Left Ventricle Normal left ventricular cavity size. There is normal left ventricular wall thickness. The left ventricular systolic function is normal. The calculated ejection fraction is 62% by biplane method. There is no evidence of regional wall motion abnormalities. Diastolic function is normal for age. LV peak GLS -20.4%. Right Ventricle Normal right ventricular cavity size and systolic function. Atria Both atria are normal in size. Aortic Valve There is a normal trileaflet aortic valve. There is no aortic valve stenosis. There is no aortic valve regurgitation. Mitral Valve There is mild anterior mitral leaflet thickening. There is no mitral valve regurgitation. There is no mitral valve stenosis. Pulmonic Valve The pulmonic valve is likely normal. Tricuspid Valve There is mild tricuspid valve regurgitation. There is no evidence of pulmonary hypertension. Great Vessels The asc aorta and aortic arch are normal in size. Venous The inferior vena cava is mildly dilated and collapses greater than 50% with inspiration. Pericardium/Pleural There is no evidence of pericardial effusion. Prior Study Comparison No significant change compared to prior study dated: 08/10/2012. Recommendations, Care & Conclusions No obvious valvular pathology seen on this study. Measurements 2D Linear Measurements IVSd: 0.77 0.6-0.9/0.6-1.0 cm LVIDd: 4.24 3.9-5.3/4.2-5.9 cm LVIDd Index: 2.24 2.4-3.2/2.2-3.1 cm/m2 LVIDs: 2.98 2.0-3.6 cm LVPWd: 0.78 0.7-1.1 cm LA Diam: 2.70 2.7-3.8/3.0-4.0 cm LAIDs Index: 1.43 1.5-2.3 cm/m2 LV Mass: 122.18 67-162/88-224 g LV Mass Index: 64.64 43-95/49-115 g/m2 LVOT Diam: 2.10 3.0+(-)1.3 cm 2D Systolic Function EF 4C: 62.20 >55% EF 2C: 61.60 >55% EF BiP: 61.90 >55% Mitral Valve MV Pk E: 0.81 MV PK A: 0.74 MV Decel Time: 248.00 E/A: 1.10 E'Lateral: 10.10 E'Medial: 5.98 E/E' Med: 13.50 E/E' Lat: 8.00 PHT: 73.00 MVA PHT: 3.01 Decel Mobile: 3.26 Aortic Valve AoV Pk Keith: 1.26 AoV Mn Keith: 0.96 AoV VTI: 0.32 AoV Pk Grad: 6.00 Aov Mn Grad: 4.00 MELI Cont.VTI: 2.23 LVOT LVOT Pk Keith: 0.84 LVOT Mn Keith: 0.59 LVOT VTI: 0.21 LVOT Pk Grad: 3.00 LVOT Mn Grad: 2.00 LVOT Diam: 2.10 LVOT Area: 3.46 Diastolic Function MV Pk E: 0.81 MV Pk A: 0.74 E/A: 1.10 E'Medial: 5.98 E/E' Med: 13.50 E' Laterial: 10.10 E/E' Lat: 8.00 Right Ventricle TAPSE (mm): 26.10 TVS' Keith: 10.60 Tricuspid Valve TR Pk Keith: 2.06 TR Pk Grad: 17.00 RA Press: 8.00 RVSP: 25.00 Great Vessels Aorta Sinus of Valsalva: 3.16 2.0-3.[address] Ridge: 2.64 1.7-3.4 cm Ao Asc: 3.50 2.1-3.4 cm Ao Arch: 2.70 Updated in Other Vendor System with Status of Final Shashank Sung MD electronically signed on 04/11/2024 12:29:54 PM with status of Final
== END ==
LOC: HO.CARD 08:10
PROVIDERS: PCP Internal Medicine; Visit Provider Internal Medicine Cardiovascular Disease
DX: R07.89 Other chest pain (principal)
CPT/HCPCS: 93017; 93306; 93356

== ENCOUNTER → 2024-04-10 08:13 | Outpatient (BNV) | payer OTHER, SELFPAY | PROVIDERS: PCP Internal Medicine; Visit Provider Nurse Practitioner Family | DX: I36.1 Nonrheumatic tricuspid (valve) insufficiency (principal); R07.9 Chest pain, unspecified | CPT/HCPCS: 93016; 93018; 93350; 93356 ==

== ENCOUNTER 2024-04-14 11:02 | Outpatient (REF) | payer OTHER, SELFPAY ==
--- NOTE | 2024-04-14 11:09 | PFT_ITS ---
Flows: FEV1: 86 % of predicted at 2.69 L FVC: 86 % of predicted at 3.43 L FEV1/FVC: 79 % Bronchodilator response: Absent Volumes: Total lung capacity: 85 % of predicted at 5.31 L Residual volume: 92 % of predicted at 1.88 L Slow vital capacity: 81 % of predicted at 3.43 L Expiratory reserve volume: 77 % of predicted at 0.89 L Diffusion capacity: Normal Impression: No obstructive or restrictive ventilatory defect. No bronchodilator response. Normal pulmonary function test. MTDD
[2024-04-14 11:29] VITALS: PULSE 76; O2SAT 98
--- OUTSIDE RECORDS SUMMARY | 2024-04-19 07:48 | XMS_ITS ---
[facility] [place] Address [address] [place] [address] Care Team Providers Care Casing Finisher And Stuffer Name Role Phone CandelarioTripp Primary Care Provider Unavailabl e Black, Danya Unavailable [phone] Allergies No Known Allergies REASON FOR VISIT Foot pain Medications Medication SIG (Take, Route, Fr equency, Duration) Notes Start Date End Date Status Turmeric 05/13/2023 Active Calcium Active Vitamin E 400 UNIT 1 tablet Orally Once a day for 30 day(s) 05/13/2023 Active Vitamin B12 1000 MCG 1 tablet Orally Onc e a day for 30 day(s) 05/13/2023 Active Vitamin D3 05/13/2023 Active Vitamin C 1000 MG 1 tablet Orally Once a day for 30 day(s) 05/13/2023 Active Social History Tobacco Use: Social History Observation Description Date Details (start date - stop date) Never Smoker NA - NA Tobacco Use/Smoking Question Answer Notes Are you a: nonsmoker Additional Findings: Tobacco Non-User Current no n-smoker Alcohol Screen Question Answer Notes Did you have a drink containing alcohol in the p ast year? No Points 0 Interpretation Negative Tobacco use other than smoking: Question Answer Notes Are you an other tobacco user? No Vital Signs Height 5 ft 10 in in 08/02/2023 Weight 158 lbs 08/02/2023 BMI 22.67 kg/m2 08/02/2023 Blood pressure systolic 110 mm Hg 08/02/19 24 Blood pressure diastolic 78 mm Hg 024 Encounters Encounter Location Date Provider Diagnosis [facility] [address] [place] [address] 08/02/2023 Danya Black Pain in left foot M79.672 ; Peroneal tendinitis, left leg M76.72 ; Pain in left ankle and joints of left foot M25.572 ; Bursitis of left foot M77.52 and Metatarsalgia of left foot M77.42 Assessments Encounter Date Diagnosis (ICD Code) Assessment Notes Treatment Notes Treatment Clinical Notes Section Notes 08/02/2023 Pain in left foot (ICD-10 - M79.672) 08/02/2023 Peroneal tendinitis, left leg (ICD-10 - M76.72) 08/02/2023 Pain in left ankle and joints of left foot (ICD-10 - M25.572) 08/02/2023 Bursitis of left foot (ICD-10 - M77.52) 08/02/2023 Metatarsalgia of left foot (ICD-10 - M77.42) Plan Of Treatment Next Appt Details Follow Up: prn, Reason: Progress Notes * Lori SANDOVAL ADOB: [birth year] (58 yo F)Acc No.[id number]:08/02/2023 Progress Notes Patient:?Lori Sandoval Provider:?Danya Mccall DPM :1965???Age:58 Y???Sex:Female D ate:08/02/2023 Address:[address] [place] [id number] Pcp:Tripp Palomino Subjective: * Chief Complaints: * ???Foot pain * HPI: ???Foot Pain:?Nature:?burning , aching.?Location:?Outside, Bottom, Forefoot, LEFT.?Duration:?, several months > 6.?Course:?improved at 30%, , unresolved.?Aggrevated:?any pressure, standing, walking.?Treatments:?rest/alter normal daily activity, , stretching.? * ROS:?General/Constitutional:?Nausea?denies, denies.?Vomiting?denies, denies.?Hunger Thirst?denies, denies.?Loss appetite?denies, denies.?Chills?denies, denies.?Fatigue?denies, denies.?Fever?denies, denies.?Night Sweats admits, admits.?Unexplained weight loss?denies, denies.?Unexplained weight gain?denies, denies.?HEENTM:?Dentures?denies, denies.?Dizziness?admits, admits.?Glasses/contacts?admits, admits.?Retinopathy?denies, denies.?Blurred/double vision?denies, denies.?TMJ?admits, admits.?Discharge/drainage?denies, denies.?Implants?denies, denies.?Sore throat?denies, denies.?Dental implants?denies, denies.?Hard of hearing ?denies, denies.?Difficulty chewing/swallowing/speaking?denies, denies.?Nose bleeds?denies, denies.?Sore mouth?denies, denies.?Respiratory:?On Oxygen?denies, denies.?Pneumonia/pleurisy?denies, denies.?Bronchitis?admits, admits.?Emphysema?denies, denies.?Coughing?denies, denies.?Cough blood?denies, denies.?Shortness of breath?denies, denies.?Wheezing?denies, denies.?Cardiovascular:?Pacemaker?denies, denies.?MVP?denies, denies.?WPW?admits, admits.?CHF?denies, denies.?Heart attack?denies, denies.?Septal defect?denies, denies.?Rapid beat?admits, admits.?Chest pain ?admits, admits.?Atrial Fib.?denies, denies.?Murmur/Palpitations?denies, denies.?Gastrointestinal:?Hemorrhoids?denies, denies.?Stomach/Abdominal pain?denies, denies.?Dark blood stool?denies, denies.?Irritable bowel ?denies, denies.?Constipation?denies, denies.?Diarrhea?denies, denies.?Hematology:?Swelling?denies, denies.?Clots?denies, denies.?Varicose Veins?denies, denies.?Bruising?denies, denies.?Bleeding problem?denies, denies.?Genitourinary:?Blood urine?denies, denies.?Frequent/Painfu/urination/bladder control?denies, denies.?Kidney stones?denies, denies.?Infection (UTI)?denies, denies.?Nephropathy?denies, denies.?sex trans dis (STD)?denies, denies.?Prostate?denies, denies.?Musculoskeletal:?Hammertoes?denies, denies.?Bunions?denies, denies.?Back Pain?denies, denies.?Muscle Cramps/ Resting?denies, denies.?Muscle cramps / walking?denies, denies.?Generalized aches and pains?admits, admits.?Weakness?denies, denies.?Integ.:?Curry?denies, denies.?Scars?denies, denies.?Corns/calluses?denies, denies.?Ingrown nails?denies, denies.?Painful nails?denies, denies.?Open Sores?denies, denies.?Rashes?denies, denies.?Neurologic:?Difficulty sleeping?admits, admits.?Brain disorder?denies, denies.?Numbness?denies, denies.?Balance trouble?denies, denies.?Confusion?denies, denies.?Fainting/blackouts?denies, denies.?Tingling?denies, denies.?Tremors?denies, denies.? * Medical History:? * Surgical History:?partial hy sterectomy 11/2010lumpectomy, left breast 2016heart ablation 04/2014 * Hospitalization/Major Diagno stic Procedure:?Denies Past Hospitalization * Family History:?Mother: dece ased, diagnosed with Family history of arthritis.?Father: , diagnosed with Family history of arthritis, Other malignant neoplasm of unspecified site.?Maternal Grand Mother: stroke.? * Social History:?Tobacco Use:?Tobacco Use/Smoking?Are you a:?nonsmoker ?Additional Findings: Tobacco Non-User?Current non-smoker ?Tobacco use other than smoking?Are you an other tobacco user??No ???Drugs/Alcohol:?Drugs?Have you used drugs other than those for medical reasons in the past 12 months??No ?Alcohol Screen?Did you have a drink containing alcohol in the past year??No ?Points?0 ?Interpretation?Negative ???Miscellaneous:?Caffeine: yes, 2-3 cups per day. ?no Children. ?Exercise: yes, weight training, cardio. ?Marital status: partner. 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 * Medications:?TakingCalcium V itamin C 1000 MG Tablet 1 tablet Orally Once a dayVitamin D3 Vitamin E 400 UNIT Tablet 1 tablet Orally Once a dayVitamin B12 1000 MCG Tablet Extended Release 1 tablet Orally Once a dayTurmeric Medication List reviewed and reconciled with the patientTaking Calcium Taking Vitamin C 1000 MG Tablet 1 tablet Orally Once a dayTaking Vitamin D3 Taking Vitamin E 400 UNIT Tablet 1 tablet Orally Once a dayTaking Vitamin B12 1000 MCG Tablet Extended Release 1 tablet Orally Once a dayTaking Turmeric Medication List reviewed and reconciled with the patient * Allergies:?N.K.D.A.yes[Aller gies Verified] Objective: * Vitals:?Ht: 5 ft 10 in, Wt:1 58, BMI:22.67, Shoe size:10, BP:110/78 mm Hg. * Examination: ???Orthopedic: ?MUSCLE STRENGTH:?5/5 all groups in a symmetrical fashion, B/L.?GAIT ABNORMALITY:?Supinated , adducted angle and base of gate , B/L.?FOOT MORPHOLOGY:?normal , B/L.?TAILOR'S BUNION:?, Enlarged, painful, prominent, inflamed 5th Metatarsal Base , LEFT.?TENDONITIS:?Pain on palpation, inflammation, and fusiform swelling to , Peroneal Complex , LEFT, no pain on ROM , States 30 % LESS.?FOOTWEAR:?good condition.? Assessment: * Assessment: 1.?Peroneal tendinitis, left leg - M76.72 (Primary)?2.?Pain in left foot - M79.672?3.?Pain in left ankle and joints of left foot - M25.572?4.?Bursitis of left foot - M77.52?5.?Metatarsalgia of left foot - M77.42? Plan: * Treatment: * Procedure Codes:? * Preventive Medicine:? ??Counseling:?Discussion:?-13: Office or other outpatient visit for the evaluation and management of an established patient, which required a medically appropriate history and/or examination and LOW level of DECISION MAKING for: 1 STABLE ACUTE UNCOMPLICATED PROBLEM, 2 OR MORE MINOR PROBLEMS, OR 1 STABLE CHRONIC PROBLEM, THAT POSE(S) A LOW RISK FOR MORBIDITY/MORTALITY. The visit on the day of the encounter encompassed interpreting the data and educating the patient as to the nature of their condition, treatment options available according to their individual PMH, meds, allergies, and overall health/living conditions, as well as any potential risks or complications that may occur from a failure to adhere to, and participate in, the recommended course of therapy. The discussion included a complete verbal, and/or written explanation of the examination results, any x-rays taken, the proposed diagnosis, and outline of the treatment plan. A schedule for future care needs was also explained. The patient verbalized an understanding of the instructions at this time and agreed to be an active participant in their treatment. If the patient should think of any questions or concerns after the visit, I have encouraged the patient to call the office.?Myositis/Tendonitis:?Discussed other tx options for the patients condition, injection therapy,physical therapy,EPAT, oral NSAIDS and Oral Steriods. Pt defers. She would like to continue with present treatment plan with the addition of topical medication- Voltaren gel is recomm..? * Follow Up:?prn * Images: * Sign off status: Completed true * Provider:?Danya Mccall DPM Date:?2023 Generated for Keyanna mcdonnell/Masoud/eTransmitting on:?04/19/2024 07:47 AM EST History and Physical Notes * HPI (History of Present Illness) Category Sub-Category Detail Notes Category Not es Foot Pain Nature: burning , aching Location: Outside, Bottom, For efoot, LEFT Duration: , several months > 6 Course: improved at 30%, , u nresolved Aggravated: any pressure, standi ng, walking Treatments: rest/alter normal da elisha activity, , stretching Examination Category Sub-Category Detail Notes Category Not es Orthopedic GAIT ABNORMALITY: Supinated , ad ducted angle and base of gate , B/L FOOT MORPHOLOGY: normal , B/L FOOTWEAR: good condition TAILOR'S BUNION: , Enlarged, painful, prominent, inflamed 5th Metatarsal Base , LEFT TENDONITIS: Pain on palpation, i nflammation, and fusiform swelling to , Peroneal Complex , LEFT, no pain on ROM , States 30 % LESS MUSCLE STRENGTH: 5/5 all groups in a symmetrical fashion, B/L
--- OUTSIDE RECORDS SUMMARY | 2024-04-19 07:48 | XMS_ITS ---
Author Organization [facility] Address [address] [place] [address] Care Team Providers Care Fiberglass Grinder Name Role Phone Tripp Palomino Primary Care Provider Unavailabl e Black, Danya Unavailable [phone] REASON FOR VISIT Mckay ok? Encounters Encounter Location Date Provider Diagnosis [facility] [address] [place] [address] 06/10/2023 Danya Black Plan Of Treatment No Information Progress Notes * Lori SANDOVAL ADOB: 8 (58 yo F)Acc No.[id number]:06/10/2023 Patient:?Howe, Lori Taylor :1965???Age:58 Y???Sex:Female Address:[address] [place] [address] [place], [address] * true * Date:? Generated for Printi ng/Masoud/eTransmitting on:?04/19/2024 07:48 AM EST
--- OUTSIDE RECORDS SUMMARY | 2024-04-19 07:48 | XMS_ITS | Patient Health Record ---
Author Organization [facility] Address [address] [place] [address] Care Team Providers Care Vp Software Support Name Role Phone CandelarioChapislauren Primary Care Provider Unavailabl e Black, Danya Unavailable [phone] Allergies No Known Allergies Results Component Value Reference Range Notes X ray : Foot, left 3V Reviewed date:06/10/2023 01:54:13 PM Interpretation:See Examination above Performing Lab: Notes/Report: See Examination above Reason For Referral No Information Medications Medication SIG (Take, Route, Fr equency, Duration) Notes Start Date End Date Status Turmeric 05/13/2023 Active Calcium Active Vitamin E 400 UNIT 1 tablet Orally Once a day for 30 day(s) 05/13/2023 Active Vitamin B12 1000 MCG 1 tablet Orally Onc e a day for 30 day(s) 05/13/2023 Active Vitamin C 1000 MG 1 tablet Orally Once a day for 30 day(s) 05/13/2023 Active Vitamin D3 05/13/2023 Active Social History Tobacco Use: Social [...] an other tobacco user? No Vital Signs Blood pressure diastolic 78 mm Hg 08/02/2023 Height 5 ft 10 in in 08/02/2023 Blood pressure systolic 110 mm Hg 08/02/2023 Weight 158 lbs 08/02/2023 BMI 22.67 kg/m2 08/02/2023 Encounters Encounter Location Date Provider Diagnosis [address] [address] 06/10/2023 Danya Black Pain in left foot M79.672 ; Pain in left ankle and joints of left foot M25.572 ; Bursitis of left foot M77.52 ; Peroneal tendinitis, left leg M76.72 and Metatarsalgia of left foot M77.[address] [address] 08/02/2023 Danya Black Pain in left foot M79.672 ; Peroneal tendinitis, left leg M76.72 ; Pain in left ankle and joints of left foot M25.572 ; Bursitis of left foot M77.52 and Metatarsalgia of left foot M77.[address] [address] 05/13/2023 Danya Black [address] [address] 06/10/2023 Danya Black Assessments Encounter Date Diagnosis (ICD Code) Assessment Notes Treatment Notes Treatment Clinical Notes Section Notes 06/10/2023 Pain in left ankle and joints of left foot (ICD-10 - M25.572) 06/10/2023 Pain in left foot (ICD-10 - M79.672) 08/02/2023 Peroneal tendinitis, left leg (ICD-10 - M76.72) 08/02/2023 Pain in left foot (ICD-10 - M79.672) 08/02/2023 Pain in left ankle and joints of left foot (ICD-10 - M25.572) 06/10/2023 Bursitis of left foot (ICD-10 - M77.52) 06/10/2023 Peroneal tendinitis, left leg (ICD-10 - M76.72) Patient Educated with: PERONEAL TENDON INJURY REHAB. EXERCISES.pdf (PERONEAL TENDON INJURY REHAB. EXERCISES.pdf) 08/02/2023 Bursitis of left foot (ICD-10 - M77.52) 06/10/2023 Metatarsalgia of left foot (ICD-10 - M77.42) 08/02/2023 Metatarsalgia of left foot (ICD-10 - M77.42) Plan Of Treatment No Information Insurance Providers Payer Name Payer Address Payer Phone Subscriber Number Group Number Insured Name Patient Relationship to Insured Coverage Start Date Coverage End Date WEB TPA [address] [address] [place] [address] [id number] RU Lori Angel Self - patient is the insured Medical (General) History Medical History History ICD Code Arthritis Back,Hip,and Knee pain Broken bones CAD (Cholesterol) Cancer covid-19 Headaches/Migraines Heart disease Surgical History Surgery Date(Month/Year) partial hysterectomy 11/2010 lumpectomy, left breast 2016 heart ablation 04/2014
--- OUTSIDE RECORDS SUMMARY | 2024-04-19 07:48 | XMS_ITS ---
Author Organization [facility] [place] Address [address] [place] [address] Care Team Providers Care Manager Special Events Name Role Phone CandelarioTripp Primary Care Provider Unavailabl e Black, Danya Unavailable [phone] Allergies No Known Allergies Results Component Value Reference Range Notes X ray : Foot, left 3V Reviewed date:06/10/2023 01:54:13 PM Interpretation:See Examination above Performing Lab: Notes/Report: See Examination above REASON FOR VISIT PCP: 03/2023, Foot pain Medications Medication SIG (Take, Route, Fr equency, Duration) Notes Start Date End Date Status Vitamin C 1000 MG 1 tablet Orally Once a day for 30 day(s) 05/13/2023 Active Vitamin D3 05/13/2023 Active Vitamin E 400 UNIT 1 tablet Orally Once a day for 30 day(s) 05/13/2023 Active Vitamin B12 1000 MCG 1 tablet Orally Onc e a day for 30 day(s) 05/13/2023 Active Turmeric 05/13/2023 Active Social History Tobacco Use: Social [...] Signs Height 5 ft 10 in in 06/10/2023 Weight 158 lbs 06/10/2023 BMI 22.67 kg/m2 06/10/2023 Encounters Encounter Location Date Provider Diagnosis [facility] [place] [address] [place] [address] 06/10/2023 Danya Mccall Pain in left foot M79.672 ; Pain in left ankle and joints of left foot M25.572 ; Bursitis of left foot M77.52 ; Peroneal tendinitis, left leg M76.72 and Metatarsalgia of left foot M77.42 Assessments Encounter Date Diagnosis (ICD Code) Assessment Notes Treatment Notes Treatment Clinical Notes Section Notes 06/10/2023 Pain in left foot (ICD-10 - M79.672) 06/10/2023 Pain in left ankle and joints of left foot (ICD-10 - M25.572) 06/10/2023 Bursitis of left foot (ICD-10 - M77.52) 06/10/2023 Peroneal tendinitis, left leg (ICD-10 - M76.72) Patient Educated with: PERONEAL TENDON INJURY REHAB. EXERCISES.pdf (PERONEAL TENDON INJURY REHAB. EXERCISES.pdf) 06/10/2023 Metatarsalgia of left foot (ICD-10 - M77.42) Plan Of Treatment Treatment Notes Assessment Notes Peroneal tendinitis, left leg Patient Ed ucated with: PERONEAL TENDON INJURY REHAB. EXERCISES.pdf (PERONEAL TENDON INJURY REHAB. EXERCISES.pdf) Next Appt Details Follow Up: 6 Weeks, Reason: Progress Notes * Lori SANDOVAL ADOB: [birth year] (58 yo F)Acc No.[id number]:06/10/2023 Progress Notes Patient:?Lori Sandoval A Provider:?Danya Mccall DPM :1965???Age:58 Y???Sex:Female D ate:06/10/2023 Address: [address] [place], [place] Pcp:Tripp Palomino Subjective: * Chief Complaints: * ??? PCP: 03/2023Foot pain * HPI: ???Foot Pain:?Nature:?burning , aching.?Location:?Outside, Bottom, Forefoot, LEFT.?Duration:?, several months > 6.?Course:?worse.?Aggrevated:?any pressure, standing, walking.?Treatments:?rest/alter normal daily activity.? * ROS:?General/Constitutional:?Nausea?denies.?Vomiting?denies.?Hunger Thirst?denies.?Loss appetite?denies.?Chills?denies.?Fatigue?denies.?Fever?denies.?Night Sweats?admits.?Unexplained weight loss?denies.?Unexplained weight gain?denies.?HEENTM:?Dentures?denies.?Dizziness?admits.?Glasses/contacts?admits.?Retinopathy?de nies.?Blurred/double vision?denies.?TMJ?admits.?Discharge/drainage?denies.?Implants?denies.?Sore throat?denies.?Dental implants?denies.?Hard of hearing ?denies.?Difficulty chewing/swallowing/speaking?denies.?Nose bleeds?denies.?Sore mouth?denies.?Respiratory:?On Oxygen?denies.?Pneumonia/pleurisy?denies.?Bronchitis?admits.?Emphysema?denies.?C oughing?denies.?Cough blood?denies.?Shortness of breath?denies.?Wheezing?denies.?Cardiovascular:?Pacemaker?denies.?MVP?denies.?WPW?admits.?CHF?denies.?Heart attack?denies.?Septal defect?denies.?Rapid beat?admits.?Chest pain ?admits.?Atrial Fib.?denies.?Murmur/Palpitations?denies.?Gastrointestinal:?Hemorrhoids?denies.?Stomach/Abdominal pain?denies.?Dark blood stool?denies.?Irritable bowel ?denies.?Constipation?denies.?Diarrhea?denies.?Hematology:?Swelling?denies.?Clots?denies.?Varicose Veins?denies.?Bruising?denies.?Bleeding problem?denies.?Genitourinary:?Blood urine?denies.?Frequent/Painfu/urination/bladder control?denies.?Kidney stones?denies.?Infection (UTI)?denies.?Nephropathy?denies.?sex trans dis (STD)?denies.?Prostate?denies.?Musculoskeletal:?Hammertoes?denies.?Bunions?denies.?Back Pain?denies.?Muscle Cramps/ Resting?denies.?Muscle cramps / walking?denies.?Generalized aches and pains?admits.?Weakness?denies.?Integ.:?Curry?denies.?Scars?denies.?Corns/calluses?denies.?Ingrown nails?denies.?Painful nails?denies.?Open Sores?denies.?Rashes?denies.?Neurologic:?Difficulty sleeping?admits.?Brain disorder?denies.?Numbness?denies.?Balance trouble?denies.?Confusion?denies.?Fainting/blackouts?denies.?Tingling?denies.?Tr emors?denies.? * Medical History:? * Surgical History:?partial hy [...] in the past year??No ?Points?0 ?Interpretation?Negative ???Miscellaneous:?Caffeine: yes. ?no Children. ?Exercise: weight training, cardio. ?Marital status: partner. * Medications:?TakingVitamin C 1000 MG Tablet 1 tablet Orally Once a dayVitamin D3 Vitamin E 400 UNIT Tablet 1 tablet Orally Once a dayVitamin B12 1000 MCG Tablet Extended Release 1 tablet Orally Once a dayTurmeric Medication List reviewed and reconciled with the patientTaking Vitamin C 1000 MG Tablet 1 tablet Orally Once a dayTaking Vitamin D3 Taking Vitamin E 400 UNIT Tablet 1 tablet Orally Once a dayTaking Vitamin B12 1000 MCG Tablet Extended Release 1 tablet Orally Once a dayTaking Turmeric Medication List reviewed and reconciled with the patient * Allergies:?N.K.D.A.yes[Aller gies Verified] Objective: * Vitals:?Ht: 5 ft 10 in, Wt:1 58, BMI:22.67, Shoe size: 10, Ht-cm: 177.8 cm, Wt- k.67 kg. * Examination: ???General Examination: ?GENERAL APPEARANCE:?Reveals a pleasant, alert, well nourished, well- developed, well hydrated individual, who demonstrates proper attention to hygiene/body habitus, and is in no acute distress, Pt serves as own historian for office visit today.?ORIENTED:?person, place, and time.?Vascular: ?DP PULSES:?3/4, B/L.?PT PULSES:?3/4, B/L.?CAPILLARY FILL TIME:?immediate, all digits, B/L.?SKIN TEMPERTURE GRADIENT OF THE LOWER EXTERMITIES:?normal, warm to cool, proximal to distal, B/L, B/L.?HAIR GROWTH/TEXTURE/ELASTICITY/TURGOR:?normal, B/L.?Neurological: ?SENSORY:?Neurological exam reveals intact sensorium, pain sensation normal, vibration sensation intact, pinprick sensation is normal in the lower extremities, Pt denies, anesthesia, burning, paresthesia, tingling, B/L.?TINEL'S COMPRESSION:? Negative, Lateral sural nerve distribution, Left.?Orthopedic: ?MUSCLE STRENGTH:?5/5 all groups in a symmetrical fashion, B/L.?GAIT ABNORMALITY:?Supinated , adducted angle and base of gate , B/L.?FOOT MORPHOLOGY:?normal , B/L.?TAILOR'S BUNION:?, Enlarged, painful, prominent, inflamed 5th Metatarsal Base , LEFT.?TENDONITIS:?Pain on palpation, inflammation, and fusiform swelling to , Peroneal Complex , LEFT, no pain on ROM.?FOOTWEAR:?good condition.?Neuroma Pain: ?PALPATION:?No interspace pain noted on palpation.?X-Rays - IMAGING REPORT: ?Clinical Indication(s):? Evaluate for Fracture, Evaluate Biomechanical Deformity.?Views:? 3 views of Foot, AP, LAT, LO, LEFT.?Findings:?increase in soft tissue contour and density at the symptomatic site , hypertrophy of 5th MT Base/Styloid process.?Fracture:?Negative fractures identified.? Assessment: * Assessment: 1.?Pain in left ankle and mandy ints of left foot - M25.572?2.?Pain in left foot - M79.672 (Primary)?3.?Bursitis of left foot - M77.52?4.?Peroneal tendinitis, left leg - M76.72?5.?Metatarsalgia of left foot - M77.42? Plan: * Treatment: 2.?Peroneal tendinitis, left leg? Notes: Patient Educated with: PERONEAL TENDON INJURY REHAB. EXERCISES.pdf (PERONEAL TENDON INJURY REHAB. EXERCISES.pdf)?? * Procedure Codes:?06519 X-RAY EXAM OF LEFT FOOT 3V, Modifiers: 26 , LT * Preventive Medicine:? ??Counseling:?Discussion:?-04: Office or other outpatient visit for the evaluation and management of a new patient, which required a medically appropriate history and/or examination and MODERATE level of DECISION MAKING for: 1 OR MORE CHRONIC PROBLEM(S) THATS WORSENING, 2 STABLE CHRONIC PROBLEMS, A NEWLY DIAGNOSED PROBLEM WITH UNCERTAIN PROGNOSIS, AN ACUTE COMPLICATED INJURY WITH MULTIPLE TREATMENT OPTIONS, OR AN ACUTE PROBLEM WITH ACCOMPANYING SYSTEMIC SYMPTOMS, THAT POSE(S) A MODERATE RISK OF MORBIDITY. THIS CONDITION MAY ALSO INCLUDE RX DRUG MANAGEMENT, OR A DECISON FOR MINOR SURGERY. The visit on the day of the [...] have encouraged the patient to call the office.?BioMech.:?I discussed the Pts foot biomechanics with them and how it relates to their problem, Discussed and reviewed the X-rays with the patient. We discussed how the findings relate to the patients symptoms/complaints. Answered any and all questions., Recommended Topical analgesics including biofreeze/aspercream/Voltaren gel.?Myositis/Tendonitis:?TENDONITIS: I explained to the patient the possible etiologies of their Tendonitis, including foot type/shoegear/activity level/exercise routine and the risks/benefits of the different treatment options for their pain including: No treatment at all, Rest, Ice, Oral Prednisone, NSAIDs(only if well tolerated after meals), New/supportive Shoegear, Strappings and Tapings, Stretching exercises, Deep Tissue Massage, Heel cups/cushions, Arch support/shoe inserts, Custom orthoses, Foot/Ankle AFO Bracing, Cast boot with crutches/cane/or walker for assisted ambulation, Topical analgesics including Aspercream/Voltaren gel, Physical Therapy, EPAT/ESWT, and Interfil injection therapy. Tendon surgical procedures including reefing and/or transfers were also detailed should either one become necessary through failure of conservative treatment. The advantages and disadvantages of each option were discussed and the patients questions re: shoegear, the difference between custom vs prefabricated inserts, activity level, PO vs Topical medications (and their respective potential complications/drug interactions/side effects), consistency in home treatment regimens for optimal success, as well as the potential benefits and possible complications of reconstructive surgery (includeing, but not limited to failure, prolongued/delayed healing, infection, weakness, persistant pain) were answered to their verbally confirmed satisfaction.?X-rays:?Discussed and reviewed the X-rays with the patient. We discussed how the findings relate to the patients symptoms/complaints. Answered any and all questions..? * Follow Up:?6 Weeks * Images: * Sign off status: Completed true * Provider:?Danya Mccall DPM Date:?2023 Generated for Keyanna mcdonnell/Masoud/Brandon on:?04/19/2024 07:48 AM EST History and Physical Notes * HPI (History of Present Illness) Category Sub-Category Detail Notes Category Not es Foot Pain Nature: burning , aching Location: Outside, Bottom, For efoot, LEFT Duration: , several months > 6 Course: worse Aggravated: any pressure, standi ng, walking Treatments: rest/alter normal da elisha activity Examination Category Sub-Category Detail Notes Category Not es Neuroma Pain PALPATION: No interspace pain noted on palpation Neurological SENSORY: Neurological exa m reveals intact sensorium, pain sensation normal, vibration sensation intact, pinprick sensation is normal in the lower extremities, Pt denies, anesthesia, burning, paresthesia, tingling, B/L TINEL'S COMPRESSION: Negative, Lateral s ural nerve distribution, Left Orthopedic GAIT ABNORMALITY: Supinated , adducted an gle and base of gate , B/L FOOT MORPHOLOGY: normal , B/L FOOTWEAR: good condition TAILOR'S BUNION: , Enlarged, painful, prominent, inflamed 5th Metatarsal Base , LEFT TENDONITIS: Pain on palpation, i nflammation, and fusiform swelling to , Peroneal Complex , LEFT, no pain on ROM MUSCLE STRENGTH: 5/5 all groups in a symmetrical fashion, B/L General Examination GENERAL APPEARANCE: Reveals a pleasant, alert, well nourished, well-developed, well hydrated individual, who demonstrates proper attention to hygiene/body habitus, and is in no acute distress, Pt serves as own historian for office visit today ORIENTED: person, place, and t ronan Vascular DP PULSES(B): 3/4, B/L PT PULSES(B): 3/4, B/L CAPILLARY FILL TIME: immediate, all digi ts, B/L TEMPERTURE GRADIENT(C): normal, warm to cool, proximal to distal, B/L, B/L TROPHIC CONDITION-TEXTURE/ELASTICITY/TURGOR/HAIR GROWTH(B): normal, B/L X-Rays - IMAGING REPORT Findings: increase in soft tissue contour and density at the symptomatic site , hypertrophy of 5th MT Base/Styloid process Fracture: Negative fractures i dentified Views: 3 views of Foot, AP, LAT, LO, LEFT Clinical Indication(s): Evaluate for Fra cture, Evaluate Biomechanical Deformity
== END 2024-04-14 11:03 | disposition home or self-care (01) ==
LOC: HO.RESP 11:02
PROVIDERS: PCP Internal Medicine; Visit Provider Internal Medicine Medical Oncology
DX: R05.9 Cough, unspecified (principal)
CPT/HCPCS: 94010; 94640; 94727; 94729

== ENCOUNTER → 2024-04-14 11:09 | Outpatient (BNV) | payer OTHER, SELFPAY | PROVIDERS: PCP Internal Medicine; Visit Provider Internal Medicine Pulmonary Disease | DX: R05.9 Cough, unspecified (principal) | CPT/HCPCS: 94060; 94727; 94729 ==

== ENCOUNTER 2024-05-09 11:12 | Outpatient (AMB) | payer OTHER, SELFPAY ==
--- OUTSIDE RECORDS SUMMARY | 2024-05-09 11:15 | XMS_ITS ---
Author Organization [facility] [place] Address [address] [place] [address] Care Team Providers Care Monitoring Engineer Name Role Phone CandelarioTripp Primary Care Provider Unavailabl e Black, Danya Unavailable [phone] Allergies No Known Allergies Results Component Value [...] 06/10/2023 Encounters Encounter Location Date Provider Diagnosis [facility] [place] [address] [place] [address] 06/10/2023 Danya Mccall Pain in left foot [...] Lori SANDOVAL ADOB: [birth year] (58 yo F)Acc No.[id number]:06/10/2023 Progress Notes Patient:?Lori Sandoval A Provider:?Danya Mccall DPM :1965???Age:58 Y???Sex:Female D ate:06/10/2023 Address: [address] [place], [place] Pcp:Tripp Palomino Subjective: * Chief Complaints: [...] (PERONEAL TENDON INJURY REHAB. EXERCISES.pdf)?? * Procedure Codes:?70114 X-RAY EXAM OF LEFT FOOT 3V, Modifiers: [...] Mccall DPM Date:?2023 Generated for Keyanna mcdonnell/Masoud/Brandon on:?05/09/2024 11:15 AM EST History and Physical Notes * [...] person, place, and t ronan Vascular DP PULSES (B): 3/4, B/L PT PULSES (B): 3/4, B/L CAPILLARY FILL TIME: immediate, all digi ts, B/L TEMPERTURE GRADIENT (C): normal, warm to cool, proximal to distal, B/L, B/L TROPHIC CONDITION-TEXTURE/ELASTICITY/TURGOR/HAIR GROWTH (B): normal, B/L X-Rays - IMAGING REPORT Findings: increase in soft tissue contour and density at the symptomatic site , hypertrophy of 5th MT Base/Styloid process Fracture: Negative fractures i dentified Views: 3 views of Foot, AP, LAT, LO, LEFT Clinical Indication(s): Evaluate for Fra cture, Evaluate Biomechanical Deformity
--- OUTSIDE RECORDS SUMMARY | 2024-05-09 11:15 | XMS_ITS ---
[facility] [place] Address [address] [place] [address] Care Team Providers Care Health Program Analyst Name Role Phone Tripp Palomino Primary Care Provider Unavailabl e Black, Danya Unavailable [phone] Allergies No Known Allergies REASON FOR VISIT [...] 024 Encounters Encounter Location Date Provider Diagnosis [facility] [address] [place] [address] 08/02/2023 Danya Black Pain in left foot [...] Lori SANDOVAL ADOB: [birth year] (58 yo F)Acc No.[id number]:08/02/2023 Progress Notes Patient:?Lori Sandoval Provider:?Danya Mccall DPM :1965???Age:58 Y???Sex:Female D ate:08/02/2023 Address:[address] [place] [address] Pcp:Tripp Palomino Subjective: * Chief Complaints: * [...] Mccall DPM Date:?2023 Generated for Keyanna mcdonnell/Masoud/eTransmitting on:?05/09/2024 11:15 AM EST History and Physical [...]
--- OUTSIDE RECORDS SUMMARY | 2024-05-09 11:15 | XMS_ITS ---
Author Organization [facility] Address [address] [place] [address] Care Team Providers Care Biological Inspector Name Role Phone Tripp Palomino Primary Care Provider Unavailabl e Black, Danya Unavailable [phone] REASON FOR VISIT Mckay ok? Encounters Encounter Location Date Provider Diagnosis [facility] [address] [place] [address] 06/10/2023 Danya Black Plan Of Treatment No Information Progress Notes * Lori SANDOVAL ADOB: [birth year] (58 yo F)Acc No.[id number]:06/10/2023 Patient:?Stanley Lori Claudia :1965???Age:58 Y???Sex:Female Address:[address] [place] [address] [place], [address] * true * Date:? Generated for Printi ng/Masoud/eTransmitting on:?05/09/2024 11:15 AM EST
--- OUTSIDE RECORDS SUMMARY | 2024-05-09 11:15 | XMS_ITS | Patient Health Record ---
Author Organization [facility] Address [address] [place] [address] Care Team Providers Care Senior Technical Writer Name Role Phone CandelarioChapislauren Primary Care Provider Unavailabl e Black, Danya Unavailable [phone] Allergies No Known Allergies Results Component Value [...] 08/02/2023 Encounters Encounter Location Date Provider Diagnosis [address] [address] 06/10/2023 Danya Black Pain in left foot M79.672 ; Pain in left ankle and joints of left foot M25.572 ; Bursitis of left foot M77.52 ; Peroneal tendinitis, left leg M76.72 and Metatarsalgia of left foot M77.[address] [address] 08/02/2023 Danya Black Pain in left foot M79.672 ; Peroneal tendinitis, left leg M76.72 ; Pain in left ankle and joints of left foot M25.572 ; Bursitis of left foot M77.52 and Metatarsalgia of left foot M77.[address] [address] 05/13/2023 Danya Black [address] [address] 06/10/2023 Danya Black Assessments Encounter Date Diagnosis [...] Coverage End Date WEB TPA [address] [address] [place] [address] [id number] RU Lori Angel Self - patient is the insured Medical (General) History Medical History History ICD Code Arthritis Back,Hip,and Knee pain Broken bones CAD (Cholesterol) Cancer covid-19 Headaches/Migraines Heart disease Surgical History Surgery Date(Month/Year) partial hysterectomy 11/2010 lumpectomy, left breast 2016 heart ablation 04/2014
[2024-05-09 11:17] VITALS: BP 94/62; PULSE 90; O2SAT 96; BMI 24.0
--- NOTE | 2024-05-09 11:17 | A.OFFVIS_ITS ---
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 She has been not feeling well now for about a year. She has had a worsening cough at times productive moderate to severe. In addition to that she has had some decreased energy and chest discomfort. Over the summer that she went to a s pecialist and she was diagnosed with chronic legionnaires in addition to that she was given a diagnosis of tick-borne diseases and she was started on antibiotic regimen including rifampin, azithromycin in addition to doxycycline. She did tolerate the antibiotics but she started developing again worsening cough congestion shortness breath and chest discomfort. Of which point the patient did have imaging studies done. I did personally review a CT scan of the chest that she had which appears to have a blockage of theright sided bronchus intermedius in addition to that significant mucus plugging of the right lower lobe along with airspace disease consistent with a bronchopneumonia. No lymphadenopathy appreciated. No other involvement of disease. On further questioning she denies any hemoptysis. Sometimes though she gets a metallic taste in her mouth. In addition to that she denies any event. Based on the imaging studies in her symptoms I did recommend bronchoscopy at this point to try to delineate the obstruction self and provide her therapeutic and diagnostic procedure. The patient is agreeable at this time. 03/16/2024 the patient is here for a pulmonary follow-up visit. Overall she is doing better after the bronchoscopy. She had severe mucus plugging of the right mainstem bronchus bronchus intermedius and right lower lobe and right middle lobe airways. The biopsies were consistent with eosinophilic infiltration likely allergic. The microbiology was positive for Aspergillus fumigatus. On further history patient apparently is getting the bathroom in reducing it as they found significant amount of black mold likely bringing up the possibility of allergic bronchopulmonary aspergillosis with significant mucus plugs, ?hand and glove ?. She has had some coughing spells since we last spoke with the she is doing a lot better. A 1 point she did feel significant pulling and tugging on the right chest from coughing hurting herself. Now her to take a deep breath. She may have fractured rib. She will continue to monitor. If that does not get better she should come in for an x-ray. In the meantime will have her undergo additional blood work including hypersensitivity panel allergy panel for mold specially for Aspergillus to see if she has evidence of allergic bronchopulmonary aspergillosis (ABPA). Her eosinophil count is already significantly elevated. She would also need to have an elevated IgE and Aspergillus. Still presents as well. Therefore follow-up with those results. In the meantime the severity of disease will go ahead and treated with voriconazole in addition to prednisone. The patient will also start a maintenance inhaler with Symbicort to try to minimize the inflammatory changes. The patient follow-up in 4 weeks. If she has any issues prior to that she will call for an earlier assessment. She will talk to her construction company and also will look into a mold abatement company. 05/09/2024 The patient is here for a pulmonary follow up visit. She is feeling much better. Still having an intermittent cough, mild to moderate. Has not been using the symbicort regularly. She did not start the voriconazole in part because she was concerned with the side effects. Her labs demonstrated both an IgE and IgG medicated activity against Aspergillus, therefore, likely ABPA. Along with the Finger in glove findings on CT chest and findings on bronchoscopy. Since she is feeling better we will hold off on the voriconazole for now. Her PFts also were normal. [facility] Medical History (Updated 03/27/24 @ 11:31 by Jason Rice MD) Annual physical exam Allergies ABPA (allergic bronchopulmonary aspergillosis) Airway obstruction Bronchopneumonia Right foot pain Fracture of fifth toe, left, closed Displaced fracture of fifth metatarsal bone URI (upper respiratory infection) Rib pain on right side COVID-19 virus infection Acute viral bronchitis Colon cancer screening History of Atywb-Leczameqc-Djepe (WPW) syndrome Osteoarthritis of knees, bilateral Chronic neck pain Breast cancer, left Surgical History (Updated 03/27/24 @ 11:31 by Jason Rice MD) H/O cardiac radiofrequency ablation (~2013) History of lumpectomy of left breast H/O: hysterectomy Family History Father Cholangiocarcinoma Atrial fibrillation Mother Myelofibrosis Paternal Uncle Myocardial infarct Social History Housing: House Are you a primary resident care coordinator to a significant other at home: No Do you presently have visiting nurse or other home services: No Alcohol intake: current Alcohol intake frequency: does not drink Comment: last 2022 Patient Tobacco Use Status: Never used Tobacco Tobacco use type: Cigarette e-Cigarette/Vaping Use: Never Used Second Hand Smoke Exposure: No service: No Current occupational status: employed and retired Cognitive needs: No Hearing needs: No Vision needs: Yes Review of Systems Const Denies fever(s) Eyes Reports no additional complaints ENT Reports nasal congestion Card Denies chest pain and Denies dyspnea on exertion Resp Denies chest congestion, Reports cough, Denies hemoptysis, Denies dyspnea on exertion and Denies wheezing GI Reports no additional complaints Musc Reports no additional complaints Skin/Breast Denies rash Neuro Reports no additional complaints Endo Reports no additional complaints Cal/Lymph Reports no additional complaints Aller/Immun Denies wheezing Physical Exam Vital Signs: Last Vital Signs Pulse 90 05/09/24 11:17 BP 94/62 05/09/24 11:17 Pulse Ox 96 05/09/24 11:17 Oxygen Delivery Method Room Air 05/09/24 11:17 BMI result Body Mass Index 24.0 Const General: comfortable HEENT Head: Yes normocephalic Neck Neck: Yes supple Chest Chest palpation & inspection: normal inspection of the chest Resp Effort & Inspection: normal respiratory effort Auscultation: clear to auscultation bilaterally, no crackles, no rales, no rhonchi and no wheezes Cardio Heart sounds: S1 normal heart sound present and S2 normal heart sound present GI Palpation (GI): Soft to palpation Skin General skin exam: no rashes or lesions noted Extrem General: Yes no clubbing, cyanosis or edema Assessment & Plan Assessment & Plan (1) ABPA (allergic bronchopulmonary aspergillosis): Code(s): B44.81 - Allergic bronchopulmonary aspergillosis Category: Medical (2) Allergies: Code(s): T78.40XA - Allergy, unspecified, initial encounter Category: Medical Qualifiers: Encounter type: initial encounter Qualified Code(s): T78.40XA - Allergy, unspecified, initial encounter (3) Bronchopneumonia: Code(s): J18.0 - Bronchopneumonia, unspecified organism Category: Medical (4) Airway obstruction: Code(s): J98.8 - Other specified respiratory disorders Category: Medical Plan CPT with acapella valve hold voriconazole restart symbicort Allergy referral CT chest in 2 months F/U 3 months Orders: Orders CT chest wo IV con 2 Months J18.0 - Bronchopneumonia, unspecified organism, J98.8 - Other specified respiratory disorders Referrals Allergy & Immunology Referral B44.81 - Allergic bronchopulmonary aspergillosis Coding Level of Care Code Est Pt Level 4 (96736) Diagnoses ABPA (allergic bronchopulmonary aspergillosis) B44.81 Allergy, initial encounter T78.40XA Encounter type: initial encounter Bronchopneumonia J18.0 Airway obstruction J98.8 Time Spent (min) 18
== END 2024-05-09 11:48 | disposition home or self-care (01) ==
PROVIDERS: PCP Internal Medicine; Visit Provider Hospitalist
DX: B44.81 Allergic bronchopulmonary aspergillosis (principal); T78.40XA Allergy, unspecified, initial encounter; J18.0 Bronchopneumonia, unspecified organism; J98.8 Other specified respiratory disorders
CPT/HCPCS: 99214

== ENCOUNTER 2024-07-06 09:40 | Outpatient (AMB) | payer OTHER, SELFPAY ==
[2024-07-06 10:01] VITALS: BP 92/56; PULSE 71; O2SAT 96; BMI 23.1
--- NOTE | 2024-07-06 10:01 | MHC.OFFVIS ---
Vital Signs 07/06/24 10:01 Height 5 ft 10 in Weight 160 lb 14.999 oz BMI 23.1 BP 92/56 L Blood Pressure Location Lt brachial Position Sitting Pulse 71 Pulse Source Pulse Oximeter Pulse Oximetry (%) 96 Oxygen Delivery Method Room Air Intake Visit Reasons: 6 week FU Allergies No Known Allergies Allergy (Verified 07/06/24 10:03) HPI Comments Details: The patient is a 59 year woman with a known history of breast cancer, WPW, in addition to leukopenia who was being worked up for tick-borne diseases. She has been not feeling well now for about a year. She has had a worsening cough at times productive moderate to severe. In addition to that she has had some decreased energy and chest discomfort. Over the summer that she went to a specialist and she was diagnosed with chronic legionnaires in addition to that she was given a diagnosis of tick-borne diseases and she was started on antibiotic regimen including rifampin, azithromycin in addition to doxycycline. She did tolerate the antibiotics but she started developing again worsening cough congestion shortness breath and chest discomfort. Of which point the patient did have imaging studies done. I did personally review a CT scan of the chest that she had which appears to have a blockage of theright sided bronchus intermedius in addition to that significant mucus plugging of the right lower lobe along with airspace disease consistent with a bronchopneumonia. No lymphadenopathy appreciated. No other involvement of disease. On further questioning she denies any hemoptysis. Sometimes though she gets a metallic taste in her mouth. In addition to that she denies any event. Based on the imaging studies in her symptoms I did recommend bronchoscopy at this point to try to delineate the obstruction self and provide her therapeutic and diagnostic procedure. The patient is agreeable at this time. 03/16/2024 the patient is here for a pulmonary follow-up visit. Overall she is doing better after the bronchoscopy. She had severe mucus plugging of the right mainstem bronchus bronchus intermedius and right lower lobe and right middle lobe airways. The biopsies were consistent with eosinophilic infiltration likely allergic. The microbiology was positive for Aspergillus fumigatus. On further history patient apparently is getting the bathroom in reducing it as they found significant amount of black mold likely bringing up the possibility of allergic bronchopulmonary aspergillosis with significant mucus plugs, ?hand and glove ?. She has had some coughing spells since we last spoke with the she is doing a lot better. A 1 point she did feel significant pulling and tugging on the right chest from coughing hurting herself. Now her to take a deep breath. She may have fractured rib. She will continue to monitor. If that does not get better she should come in for an x-ray. In the meantime will have her undergo additional blood work including hypersensitivity panel allergy panel for mold specially for Aspergillus to see if she has evidence of allergic bronchopulmonary aspergillosis (ABPA). Her eosinophil count is already significantly elevated. She would also need to have an elevated IgE and Aspergillus. Still presents as well. Therefore follow-up with those results. In the meantime the severity of disease will go ahead and treated with voriconazole in addition to prednisone. The patient will also start a maintenance inhaler with Symbicort to try to minimize the inflammatory changes. The patient follow-up in 4 weeks. If she has any issues prior to that she will call for an earlier assessment. She will talk to her construction company and also will look into a mold abatement company. 05/09/2024 The patient is here for a pulmonary follow up visit. She is feeling much better. Still having an intermittent cough, mild to moderate. Has not been using the symbicort regularly. She did not start the voriconazole in part because she was concerned with the side effects. Her labs demonstrated both an IgE and IgG medicated activity against Aspergillus, therefore, likely ABPA. Along with the Finger in glove findings on CT chest and findings on bronchoscopy. Since she is feeling better we will hold off on the voriconazole for now. Her PFts also were normal. 07/06/2024 the patient is here for a pulmonary follow-up visit. Overall she is doing very good. She is feels like she is back to her baseline. She did not have to take the voriconazole. Now the Symbicort she does not always use it. She does use it as needed though. She is back exercising regularly. The patient has a CT scan scheduled in the coming days. Will follow-up with it. And also she does have an appointment with Allergy. For now she is doing very well. She knows about mold avoidance. We did talk about her into our plans and also now going to the springtime being very careful with planting and working in the garden as there is a lot of mold/fungi that can affect her breathing. Once we can review her CT scan will figure out how we should proceed. For now though she will continue with current respiratory regimen will await her evaluation from allergy. She was concerned for the possibility of a systemic illness such as cystic fibrosis. I did reassure her that I do not believe that that is the case. Will go ahead and wait for her allergy testing if there is any question about cystic fibrosis we can also consider a sweat test. COUNTS INCLUDE 234 BEDS AT THE [facility] Medical History (Updated 03/27/24 @ 11:31 by Jason Rice MD) Annual physical exam Allergies ABPA (allergic bronchopulmonary aspergillosis) Airway obstruction Bronchopneumonia Right foot pain Fracture of fifth toe, left, closed Displaced fracture of fifth metatarsal bone URI (upper respiratory infection) Rib pain on right side COVID-19 virus infection Acute viral bronchitis Colon cancer screening History of Xbfyj-Ovdksiopa-Spwxs (WPW) syndrome Osteoarthritis of knees, bilateral Chronic neck pain Breast cancer, left Surgical History (Updated 03/27/24 @ 11:31 by Jason Rice MD) H/O cardiac radiofrequency ablation (~2013) History of lumpectomy of left breast H/O: hysterectomy Family History Father Cholangiocarcinoma Atrial fibrillation Mother Myelofibrosis Paternal Uncle Myocardial infarct Social History Housing: House Are you a primary child care director to a significant other at home: No Do you presently have visiting nurse or other home services: No Alcohol intake: current Alcohol intake frequency: does not drink Comment: last 2022 Patient Tobacco Use Status: Never used Tobacco Tobacco use type: Cigarette e-Cigarette/Vaping Use: Never Used Second Hand Smoke Exposure: No service: No Current occupational status: employed and retired Cognitive needs: No Hearing needs: No Vision needs: Yes Review of Systems Const Denies fever(s) Eyes Reports no additional complaints ENT Reports nasal congestion Card Denies chest pain and Denies dyspnea on exertion Resp Denies chest congestion, Reports cough, Denies hemoptysis, Denies dyspnea on exertion and Denies wheezing GI Reports no additional complaints Musc Reports no additional complaints Skin/Breast Denies rash Neuro Reports no additional complaints Endo Reports no additional complaints Cal/Lymph Reports no additional complaints Aller/Immun Denies wheezing Physical Exam Vital Signs: Last Vital Signs Pulse 71 07/06/24 10:01 BP 92/56 L 07/06/24 10:01 Pulse Ox 96 07/06/24 10:01 Oxygen Delivery Method Room Air 07/06/24 10:01 BMI result Body Mass Index 23.1 Const General: comfortable HEENT Head: Yes normocephalic Neck Neck: Yes supple Chest Chest palpation & inspection: normal inspection of the chest Resp Effort & Inspection: normal respiratory effort Auscultation: clear to auscultation bilaterally, no crackles, no rales, no rhonchi and no wheezes Cardio Heart sounds: S1 normal heart sound present and S2 normal heart sound present GI Palpation (GI): Soft to palpation Skin General skin exam: no rashes or lesions noted Extrem General: Yes no clubbing, cyanosis or edema Assessment & Plan Assessment & Plan (1) ABPA (allergic bronchopulmonary aspergillosis): Code(s): B44.81 - Allergic bronchopulmonary aspergillosis Category: Medical (2) Allergies: Code(s): T78.40XA - Allergy, unspecified, initial encounter Category: Medical Qualifiers: Encounter type: initial encounter Qualified Code(s): T78.40XA - Allergy, unspecified, initial encounter (3) Airway obstruction: Code(s): J98.8 - Other specified respiratory disorders Category: Medical Plan CPT with acapella valve holding voriconazole, unlikely will need it symbicort as needed Allergy referral pending CT chest pending F/U 6-12 months Coding Level of Care Code Est Pt Level 4 (91381) Diagnoses ABPA (allergic bronchopulmonary aspergillosis) B44.81 Allergy, initial encounter T78.40XA Encounter type: initial encounter Airway obstruction J98.8 Time Spent (min) 16
--- OUTSIDE RECORDS SUMMARY | 2024-07-06 11:02 | XMS_ITS | Clinical Summary ---
Author Organization [facility] Address [address] [place] [address] Care Team Providers Care Behavioral Medical Director Name Role Phone Tripp Palomino MD Primary Care Provider [phone] Allergies No known active allergies Medications Medication Sig Dispensed Refills Start Date End Date Status vitamin C (ASCORBIC ACID) 250 MG tablet Take 250 mg by mouth daily. 0 Active B Complex Vitamins (B COMPLEX 1 PO) Take by mouth. 0 Active vitamin C (ASCORBIC ACID) 500 MG tablet Take 1,000 mg by mouth daily. 0 Active Cholecalciferol (VITAMIN D3 PO) Take by mouth. 0 Activ e Turmeric (QC TUMERIC COMPLEX) 500 MG CAPS Take by mouth. 0 Active Active Problems No known active problems Social History Tobacco Use Types Packs/Day Years Used Date Smoking Tobacco: Never Smokeless Tobacco: Never Alcohol Use Standard Drinks/Week Comments No 0 (1 standard drink = 0.6 oz pur e alcohol) Sex and Gender Information Value Date Recorded Sex Assigned at Not on file Gender Identity Not on file Sexual Orientation Not on file Job Start Date Occupation Industry Not on file Not on file Not on file Last Filed Vital Signs Vital Sign Reading Time Taken Comments Blood Pressure 102/68 10/30/2022 9:36 AM EDT Pulse 74 10/30/2022 9:36 AM EDT Temperature 36.7 ??C (98.1 ??F) 10/30/2022 9:36 AM ED T Respiratory Rate - - Oxygen Saturation 97% 10/30/2022 9:36 AM EDT Inhaled Oxygen Concentration - - Weight 72.6 kg (160 lb) 10/30/2022 9:36 AM EDT Height 177.8 cm (5' 10 ) 10/30/2022 9:36 AM EDT Body Mass Index 22.96 10/30/2022 9:36 AM EDT Plan of Treatment Health Maintenance Due Date Last Done Comments Hepatitis B Vaccines (1 of 3 - 3-dose series) 1967 Hepatitis C Screening 1967 COVID-19 Vaccine (#1) 1967 Depression Screening 1979 Preventative Health Evaluation 1985 DTap / Tdap / Td (1 - Tdap) 1986 Cervical Cancer Screening (P ap Smear) 1988 Colon Cancer Screening (Colonoscopy) 2012 Breast Cancer Screening (Mammogram) 2017 Shingrix-Zoster Vaccine (1 of 2) 2017 Influenza Vaccine (#1) 2024 Pneumococcal Vaccine Aged Out No long er eligible based on patient's age to complete this topic RSV Ped < 20 months Aged Out No longe r eligible based on patient's age to complete this topic Care Teams Behavioral Medical Director Relationship Specialty Start Date End Date PoTripp MD [address] [place] [address] [address] [facility] [place] [address] PCP - General Internal Medicine 07/22/20
--- OUTSIDE RECORDS SUMMARY | 2024-07-06 11:03 | XMS_ITS ---
Author Organization [facility] Address [address] [place] [address] Care Team Providers Care Veneer Jointer Returner Name Role Phone Tripp Palomino Primary Care Provider Unavailabl e Black, Danya Unavailable [phone] REASON FOR VISIT Mckay ok? Encounters Encounter Location Date Provider Diagnosis [facility] [address] [place] [address] 06/10/2023 Danya Black Plan Of Treatment No Information Progress Notes * Lori SANDOVAL ADOB: [birth year] (58 yo F)Acc No.[id number]:06/10/2023 Patient:?Loyall, Lori Taylor :1965???Age:58 Y???Sex:Female Address:[address] [place] [address] [place], [address] * true * Date:? Generated for Printi ng/Masoud/eTransmitting on:?07/06/2024 11:03 AM EST
--- OUTSIDE RECORDS SUMMARY | 2024-07-06 11:03 | XMS_ITS | Clinical Summary ---
Author Organization [facility] Address [address] [place] [address] Phone Care Team Providers Care Fulfillment Associate Name Role Phone Tripp Palomino MD Primary Care Provider [phone] Surgical History Surgery Date Site/Laterality Comments BREAST LUMPECTOMY PROCEDURE:BREAST LUMPECTOMY HYSTERECTOMY PROCEDURE:HYSTERECTOMY;COMMENT:partial Medical History Medical History Date Comments Breast cancer ([facility]) DX:Breas t cancer ([facility]) Social History Tobacco Use Types Packs/Day Years Used Date Smoking Tobacco: Never Smokeless Tobacco: Never Alcohol Use Standard Drinks/Week Comments No 0 (1 standard drink = 0.6 oz pur e alcohol) Comments Unknown Sex and Gender Information Value Date Recorded Sex Assigned at Not on file Legal Sex Female 6:04 PM EST Gender Identity Not on file Sexual Orientation Not on file Obstetrics History Last Filed Vital Signs Vital Sign Reading Time Taken Comments Blood Pressure 102/68 10/30/2022 9:36 AM EDT Sitting Left arm Pulse 74 10/30/2022 9:36 AM EDT Temperature - - Respiratory Rate - - Oxygen Saturation - - Inhaled Oxygen Concentration - - Weight 72.6 kg (160 lb) 10/30/2022 9:36 AM EDT Height 177.8 cm (5' 10 ) 10/30/2022 9:3 6 AM EDT Body Mass Index 22.96 10/30/2022 9:36 AM EDT Plan of Treatment Health Maintenance Due Date Last Done Comments DTaP,Tdap,and Td Vaccines (1 - Tdap) 1986 Hepatitis B Vaccines (1 of 3 - 19+ 3-dose series) 1986 Cervical Cancer Screening: P ap Smear 1988 Pneumococcal Vaccine: 50+ Years (1 of 1 - PCV) 2017 Zoster Vaccines (1 of 2) 2017 Colorectal Cancer Screening: Colonoscopy 04/16/2022 Depression Screening 04/16/2022 HIV Screening 04/16/2022 Hepatitis C Screening 04/16/2022 Social Influencers of Health Screening 04/16/2022 COVID-19 Vaccine (1 - 2023-2 5 season) 2024 Influenza Vaccine (#1) 2024 Breast Cancer Screening 02/12/2024 02/12/20, 02/04/2021, 02/02/2020 HIB Vaccines Aged Out No longer eligi ble based on patient's age to complete this topic HPV Vaccines Aged Out No longer eligi ble based on patient's age to complete this topic Hepatitis A Vaccines Aged Out No long er eligible based on patient's age to complete this topic IPV Vaccines Aged Out No longer eligi ble based on patient's age to complete this topic MMR Vaccines Aged Out No longer eligi ble based on patient's age to complete this topic Meningococcal ACWY Vaccine Aged Out N o longer eligible based on patient's age to complete this topic Meningococcal B Vacine Aged Out No lo nger eligible based on patient's age to complete this topic Pneumococcal Vaccine: Pediatrics (0 to 5 Years) and At-Risk Patients (6 to 64 Years) Aged Out No longer eligible b ased on patient's age to complete this topic RSV Immunization Patients Under 20 months Aged Out No longer eligible b ased on patient's age to complete this topic Varicella Vaccines Aged Out No longer eligible based on patient's age to complete this topic Procedures Procedure Name Priority Date/Time Associated Diagnosis Comments [facility] SCREENING DIGITAL Routine 02/11/2022 6:00 PM EDT Encounter for screening mammogram for malignant neoplasm of breast from Last 3 Months or Most Recently Relevant to Health Maintenance Results * NIKI SCREENING DIGITAL (02/11/2022 6:00 PM EDT) Anatomical Region Laterality Modality Mammography 02/11/2022 8:58 AM EDT Narrative 02/11/2022 6:00 PM EDT [facility] Diagnostic Imaging Department [address] [place] [address] Patient: ??CHIQUITA SANDOVAL ?/Age/Sex: 1965 - 56 - F Unit#: ??[id number] ? Location/Status: ??SPDIMAM/REG CLI ? Mnemonic/Ordering Site: ??DIGSC/SPMAM Ordering Physician: ??RAD RED MD Niki Screening Digital - 02/11/22913 ADDENDUM BIRADS Category 0, Incomplete: Needs additional imaging evaluation, 3340F Addendum Dictated By: ??KEEGAN MAYA MD Addendum Esigned by: KEEGAN MAYA MD Dictated: 02/11/2209/28/1753 Signed:02/11/22 1800 ORIGINAL REPORT History: Bilateral breast cancer screening. ??Past history of lumpectomy for ADH site of microcalcifications. Technique: Digital mammography. Conventional CC and MLO projections with tomosynthesis MLO views and computer aided detection. Comparison made with previous mammograms from [facility] 02/03/2021 dating back to 03/13/2016. Findings: Breast tissue consists of a heterogenous combination of ??fatty and fibroglandular tissue, potentially obscuring small lesions, category c density (as calculated by [employer] software). Left mid breast grouped microcalcifications at superior edge of the nipple line and within the mid superior breast as revealed on MLO projection are much less well seen on CC projection. ??Calcifications suggested within the posterior medial and posterior mid to lateral breast. ??Tissue asymmetry posterior lateral left breast as revealed on CC and MLO projection tomography at site of previous lumpectomy. ??No discrete left breast mass. Stable appearance to right breast tissue asymmetries and non-grouped benign calcification. Impression: 1. ??Left breast microcalcifications, incompletely characterized at this time. Recommend diagnostic mammography to include spot magnification view 90 degrees mediolateral projection centered over mid to upper breast and magnification view left cc projection centered over the mid to posterior breast. 2. ??No suspicious interval change of the right. 13182, 51480 A negative mammogram in the face of a clinically suspicious abnormality does not exclude the possibility of malignancy nor alter the indications for biopsy. Note: Patient information entered ??into a reminder system with a target due date for the next mammogram; PQRI II 7025F Dictating Physician: ??KEEGAN MAYA MD Electronically Signed by: ??KEEGAN MAYA MD Dic Date/Time: ??02/11/221725 Sign date/Time: ??02/11/22 173 Procedure Note Keegan Maya MD - 04/29/2022 [facility] Diagnostic Imaging Department [address] [place] [address] Patient: CHIQUITA SANDOVAL Claudia /Age/Sex: 1965 - 56 - F Unit#: [id number] Location/Status: SPDIMAM/REG CLI Mnemonic/Ordering Site: [facility] Ordering Physician: RAD RED MD Niki Screening Digital - 02/11/22913 ADDENDUM BIRADS Category 0, Incomplete: Needs additional imaging evaluation,3340F Addendum Dictated By: KEEGAN MAYA MD Addendum Esigned by: KEEGAN MAYA MD Dictated: 02/11/2209/28/1753 Signed:02/11/22 1800 ORIGINAL REPORT History: Bilateral breast cancer screening. Past history of lumpectomyfor ADH site of microcalcifications. Technique: Digital mammography. Conventional CC and MLO projections with tomosynthesis MLO views and computer aided detection. Comparison made with previous mammograms from [facility]2021 dating back to 03/13/2016. Findings: Breast tissue consists of a heterogenous combination of fattyand fibroglandular tissue, potentially obscuring small lesions, category cdensity (as calculated by [employer] software). Left mid breast grouped microcalcifications at superior edge of the nippleline and within the mid superior breast as revealed on MLO projection are muchless well seen on CC projection. Calcifications suggested within theposterior medial and posterior mid to lateral breast. Tissue asymmetry posteriorlateral left breast as revealed on CC and MLO projection tomography at site ofprevious lumpectomy. No discrete left breast mass. Stable appearance to right breast tissue asymmetries and non-groupedbenign calcification. Impression: 1. Left breast microcalcifications, incompletely characterized at thistime. Recommend diagnostic mammography to include spot magnification view 90degrees mediolateral projection centered over mid to upper breast andmagnification view left cc projection centered over the mid to posterior breast. 2. No suspicious interval change of the right. 80765, 42920 A negative mammogram in the face of a clinically suspicious abnormalitydoes not exclude the possibility of malignancy nor alter the indications forbiopsy. Note: Patient information entered into a reminder system with a targetdue date for the next mammogram; PQRI II 7025F Dictating Physician: KEEGAN MAYA MD Electronically Signed by: KEEGAN MAYA MD Dic Date/Time: 02/11/221725 Sign date/Time: 02/11/221738 us Rad Adler MD IMG BI PROCEDURES Final Result from Last 3 Months or Most Recently Relevant to Health Maintenance Care Teams Fulfillment Associate Relationship Specialty Start Date End Date Tripp Palomino MD [address] [place] [address] [address] [facility] [place] [address] PCP - General Internal Medicine 09/18/20
--- OUTSIDE RECORDS SUMMARY | 2024-07-06 11:03 | XMS_ITS | Encounter Summary ---
Author Organization [facility] Address [address] [place] [address] Care Team Providers Care Proofsheet Corrector Name Role Phone Tripp Palomino MD Unavailable Unavailable Tripp Palomino MD Primary Care Provider Unavailabl e Encounter Details Date Type Department Care Team Description 03/07/2019 Old Medical Records Medical Records [address] [place] [address] Abstract, Provider Social History Tobacco Use Types Packs/Day Years Used Date Smoking Tobacco: Never Smokeless Tobacco: Never Sex Assigned at Date Recorded Not on file documented as of this encounter Plan of Treatment Not on file documented as of this encounter Visit Diagnoses Not on filedocumented in this encounter Care Teams Proofsheet Corrector Relationship Specialty Start Date End Date Tripp Palomino MD PCP - General Internal Medicine 09/18/20 Tripp Palomino MD Internal Medicine 09/18/20 documented as of this encounter
--- OUTSIDE RECORDS SUMMARY | 2024-07-06 11:03 | XMS_ITS | Encounter Summary ---
Author Organization [facility] Address [address] [place] [address] Care Team Providers Care Heel Packer Name Role Phone Tripp Palomino MD Unavailable Unavailable Tripp Palomino MD Primary Care Provider Unavailabl e Encounter Details Date Type Department Care Team Description 08/19/2018 Release of Information Medical Records [address] [place] [address] Abstract, Provider Social History Tobacco Use Types Packs/Day Years Used Date Smoking Tobacco: Never Assessed Sex Assigned at Date Recorded Not on file documented as of this encounter Plan of Treatment Not on file documented as of this encounter Visit Diagnoses Not on filedocumented in this encounter Care Teams Heel Packer Relationship Specialty Start Date End Date Tripp Palomino MD PCP - General Internal Medicine 09/18/20 Tripp Palomino MD Internal Medicine 09/18/20 documented as of this encounter
--- OUTSIDE RECORDS SUMMARY | 2024-07-06 11:03 | XMS_ITS ---
[facility] [place] Address [address] [place] [address] Care Team Providers Care Learning Center Instructor Name Role Phone Tripp Palomino Primary Care Provider Unavailabl e Black, Danya Unavailable [phone] Allergies No Known Allergies REASON FOR VISIT [...] 024 Encounters Encounter Location Date Provider Diagnosis [facility] [address] [place] [address] 08/02/2023 Danya Black Pain in left foot [...] Lori SANDOVAL ADOB: 8 (58 yo F)Acc No.[id number]:08/02/2023 Progress Notes Patient:?Lori Sandoval Provider:?Danya Mccall DPM :1965???Age:58 Y???Sex:Female D ate:08/02/2023 Address:[address] [place] [address] Pcp:Tripp Palomino Subjective: * Chief Complaints: * [...] Mccall DPM Date:?2023 Generated for Keyanna mcdonnell/Masoud/eTransmitting on:?07/06/2024 11:03 AM EST History and Physical Notes * [...]
== END 2024-07-06 12:56 | disposition home or self-care (01) ==
PROVIDERS: PCP Internal Medicine; Visit Provider Hospitalist
DX: B44.81 Allergic bronchopulmonary aspergillosis (principal); T78.40XA Allergy, unspecified, initial encounter; J98.8 Other specified respiratory disorders
CPT/HCPCS: 99214

== ENCOUNTER → 2024-07-06 09:40 | Outpatient (BNVA) | payer OTHER, SELFPAY | PROVIDERS: PCP Internal Medicine; Visit Provider Hospitalist ==

== ENCOUNTER 2024-07-10 08:41 | Outpatient (REF) | payer OTHER, SELFPAY ==
--- NOTE | ~2024-07-10 | CT_ITS ---
CLINICAL HISTORY: J18.0 - Bronchopneumonia, unspecified organism CT chest without contrast Comparison: CT/SR - CT CHEST W IV CON - 02/23/24 10:44 EDT Findings: No mediastinal mass or lymphadenopathy. No cardiomegaly. Mild calcified coronary artery disease. Normal size thoracic aorta. Mild calcified atherosclerotic disease. Trace biapical scarring. There is a mild amount of bronchial wall thickening with secretions in the airways/mucous plugging, less than on the prior study. Interval resolution of the previously seen consolidation and ground-glass opacity. Intrapulmonary lymph nodes measure up to 5 mm along the left major fissure. No pneumothorax or pleural effusion. No acute osseous or soft tissue abnormality. No acute pathology in the imaged portion of the upper abdomen. Impression: Mild bronchial wall thickening with secretions in the airways may indicate bronchitis/mucous plugging, less than on the prior study. Interval resolution of the previously seen consolidation and ground-glass opacity. This document has been electronically signed by: Kaykay Rodríguez MD on 07/10/2024 16:47:18
--- OUTSIDE RECORDS SUMMARY | 2024-07-10 09:11 | XMS_ITS | Encounter Summary ---
Author Organization [facility] Address [address] [place] [address] Care Team Providers Care Skidder Driver Name Role Phone Tripp Palomino MD Unavailable Unavailable Tripp Palomino MD Primary Care Provider Unavailabl e Encounter Details Date Type Department Care Team Description 03/07/2019 Old Medical Records Medical Records [address] [place] [address] Abstract, Provider Social History Tobacco Use Types Packs/Day Years Used Date Smoking Tobacco: Never Smokeless Tobacco: Never Sex Assigned at Date Recorded Not on file documented as of this encounter Plan of Treatment Not on file documented as of this encounter Visit Diagnoses Not on filedocumented in this encounter Care Teams Skidder Driver Relationship Specialty Start Date End Date Tripp Palomino MD PCP - General Internal Medicine 09/18/20 Tripp Palomino MD Internal Medicine 09/18/20 documented as of this encounter
--- OUTSIDE RECORDS SUMMARY | 2024-07-10 09:11 | XMS_ITS ---
Author Organization [facility] Address [address] [place] [address] Care Team Providers Care Shake Maker Name Role Phone Tripp Palomino Primary Care Provider Unavailabl e Black, Danya Unavailable [phone] REASON FOR VISIT Mckay ok? Encounters Encounter Location Date Provider Diagnosis [facility] [address] [place] [address] 06/10/2023 Danya Black Plan Of Treatment No Information Progress Notes * Lori SANDOVAL ADOB: 8 (58 yo F)Acc No.[id number]:06/10/2023 Patient:?Stanley Lori [place] :1965???Age:58 Y???Sex:Female Address:[address] [place] [address] [place], [address] * true * Date:? Generated for Printi sathya/Masoud/eTransmitting on:?07/10/2024 09:11 AM EST
--- OUTSIDE RECORDS SUMMARY | 2024-07-10 09:11 | XMS_ITS ---
Author [facility] [place] Address [address] [place] [address] Care Team Providers Care Tow Bar Driver Name Role Phone CandelarioTripp Primary Care Provider Unavailabl e Black, Danya Unavailable [phone] Allergies No Known Allergies Results Component Value [...] 06/10/2023 Encounters Encounter Location Date Provider Diagnosis [facility] [place] [address] [place] [address] 06/10/2023 Danya Mccall Pain in left foot [...] Lori SANDOVAL ADOB: [birth year] (58 yo F)Acc No.[id number]:06/10/2023 Progress Notes Patient:?Lori Sandoval A Provider:?Danya Mccall DPM :1965???Age:58 Y???Sex:Female D ate:06/10/2023 Address: [address] [place], [place] Pcp:Tripp Palomino Subjective: * Chief Complaints: [...] (PERONEAL TENDON INJURY REHAB. EXERCISES.pdf)?? * Procedure Codes:?36225 X-RAY EXAM OF LEFT FOOT 3V, Modifiers: [...] Mccall DPM Date:?2023 Generated for Keyanna mcdonnell/Masoud/Brandon on:?07/10/2024 09:10 AM EST History and Physical Notes * [...]
--- OUTSIDE RECORDS SUMMARY | 2024-07-10 09:11 | XMS_ITS | Clinical Summary ---
Author Organization [facility] Address [address] [place] [address] Phone Care Team Providers Care Hay Buckler Name Role Phone Tripp Palomino MD Primary Care Provider [phone] Surgical History Surgery Date Site/Laterality Comments BREAST LUMPECTOMY PROCEDURE:BREAST LUMPECTOMY HYSTERECTOMY PROCEDURE:HYSTERECTOMY;COMMENT:partial Medical History Medical History Date Comments Breast cancer ([facility]/HCC) DX:Breas t cancer ([facility]) Social History Tobacco Use Types Packs/Day Years [...] Procedure Name Priority Date/Time Associated Diagnosis Comments [facility] SCREENING DIGITAL Routine 02/11/2022 6:00 PM EDT Encounter for screening mammogram for malignant neoplasm of breast from Last 3 Months or Most Recently Relevant to Health Maintenance Results * NIKI SCREENING DIGITAL (02/11/2022 6:00 PM EDT) Anatomical Region Laterality Modality Mammography 02/11/2022 8:58 AM EDT Narrative 02/11/2022 6:00 PM EDT [facility] Diagnostic Imaging Department [address] [place] [address] Patient: ??CHIQUITA SANDOVAL ?/Age/Sex: 1965 - 56 - F Unit#: ??[id number] ? Location/Status: ??SPDIMAM/REG CLI ? Mnemonic/Ordering Site: [...] detection. Comparison made with previous mammograms from [facility] 02/03/2021 dating back to 03/13/2016. Findings: Breast tissue consists of a heterogenous combination of ??fatty and fibroglandular tissue, potentially obscuring small lesions, category c density (as calculated by [employer] software). Left mid breast grouped microcalcifications at [...] ??No suspicious interval change of the right. 01623, 34344 A negative mammogram in the face of [...] Procedure Note Keegan Maya MD - 04/29/2022 [facility] Diagnostic Imaging Department [address] [place] [address] Patient: CHIQUITA SANDOVAL Claudia /Age/Sex: 1965 - 56 - F Unit#: [id number] Location/Status: SPDIMAM/REG CLI Mnemonic/Ordering Site: [facility] Ordering Physician: RAD RED MD Niki [...] detection. Comparison made with previous mammograms from [facility]/03/2021 dating back to 03/13/2016. Findings: Breast tissue consists of a heterogenous combination of fattyand fibroglandular tissue, potentially obscuring small lesions, category cdensity (as calculated by [employer] software). Left mid breast grouped microcalcifications [...] No suspicious interval change of the right. 98643, 49553 A negative mammogram in the face of [...] Recently Relevant to Health Maintenance Care Teams Hay Buckler Relationship Specialty Start Date End Date Tripp Palomino MD [address] [place] [address] [address] [facility] [place] [address] PCP - General Internal Medicine 09/18/20
--- OUTSIDE RECORDS SUMMARY | 2024-07-10 09:11 | XMS_ITS | Patient Health Record ---
[facility] Address [address] [place] [address] Care Team Providers Care Retail Coordinator Name Role Phone Candelario Chapislauren Primary Care Provider Unavailabl e Black, Danya Unavailable [phone] Allergies No Known Allergies Reason For Referral No Information Medications Medication [...] 08/02/2023 Encounters Encounter Location Date Provider Diagnosis [facility] [address] [place] [address] 08/02/2023 Danya Black Pain in left foot M79.672 ; Peroneal tendinitis, left leg M76.72 ; Pain in left ankle and joints of left foot M25.572 ; Bursitis of left foot M77.52 and Metatarsalgia of left foot M77.42 Assessments Encounter Date Diagnosis (ICD Code) Assessment Notes Treatment Notes Treatment Clinical Notes Section Notes 08/02/2023 Peroneal tendinitis, left leg (ICD-10 - [...] Coverage End Date WEB TPA [address] [address] [place] [address] [id number] Lori Angel Self - patient is the insured Medical (General) History Medical History History ICD Code Arthritis Back,Hip,and Knee pain Broken bones CAD (Cholesterol) Cancer covid-19 Headaches/Migraines Heart disease Surgical History Surgery Date(Month/Year) partial hysterectomy 11/2010 lumpectomy, left breast 2016 heart ablation 04/2014
--- OUTSIDE RECORDS SUMMARY | 2024-07-10 09:11 | XMS_ITS | Clinical Summary ---
Author Organization [facility] Address [address] [place] [address] Care Team Providers Care Cosmetic Sales Consultant Name Role Phone Tripp Palomino MD Primary Care Provider [phone] Allergies No known active allergies Medications Medication [...] age to complete this topic Care Teams Cosmetic Sales Consultant Relationship Specialty Start Date End Date PoTripp MD [address] [place] [address] [address] [facility] [place] [address] PCP - General Internal Medicine 07/22/20
--- OUTSIDE RECORDS SUMMARY | 2024-07-10 09:12 | XMS_ITS ---
[facility] [place] Address [address] [place] [address] Care Team Providers Care Quality Management Nurse Name Role Phone CandelarioTripp Primary Care Provider Unavailabl e Black, Danya Unavailable [phone] Allergies No Known Allergies REASON FOR VISIT [...] 024 Encounters Encounter Location Date Provider Diagnosis [facility] [address] [place] [address] 08/02/2023 Danya Black Pain in left foot [...] Lori SANDOVAL ADOB: [birth year] (58 yo F)Acc No.[id number]:08/02/2023 Progress Notes Patient:?Lori Sandoval Provider:?Danya Mccall DPM :1965???Age:58 Y???Sex:Female D ate:08/02/2023 Address:[address] [place] [address] Pcp:Tripp Palomino Subjective: * Chief Complaints: * [...] Mccall DPM Date:?2023 Generated for Keyanna mcdonnell/Masoud/eTransmitting on:?07/10/2024 09:11 AM EST History and Physical Notes * [...]
== END 2024-07-10 08:42 | disposition home or self-care (01) ==
LOC: HO.CT 08:41
PROVIDERS: PCP Internal Medicine; Visit Provider Hospitalist
DX: J18.9 Pneumonia, unspecified organism (principal); J98.8 Other specified respiratory disorders
CPT/HCPCS: 71250

== ENCOUNTER → 2024-07-10 08:43 | Outpatient (BNV) | payer OTHER, SELFPAY | PROVIDERS: PCP Internal Medicine; Visit Provider Radiology Diagnostic Radiology | DX: J18.0 Bronchopneumonia, unspecified organism (principal) | CPT/HCPCS: 71250 ==

== ENCOUNTER 2024-07-10 14:44 | Outpatient (AMB) | payer OTHER, SELFPAY ==
[2024-07-10 14:48] VITALS: BP 116/72; PULSE 82; BMI 22.8
--- NOTE | 2024-07-10 14:48 | A.OFFVIS_ITS ---
Vital Signs 07/10/24 14:48 Height 5 ft 10 in Weight 158 lb 11.725 oz BMI 22.8 BP 116/72 Blood Pressure Location Lt brachial Position Sitting Pulse 82 Intake Visit Reasons: 2 mth s/p ett/ echo/ ? reggie score Intake Note: 2 month follow-up after ett and echo feeling better Anesthesiology Teacher Required: No Emergency Response Coordinator: Emergency Response Coordinator Present Accompanied by: Spouse Allergies No Known Allergies Allergy (Verified 07/06/24 10:03) Medication List - Last Reconciled 07/10/24 by Evangelist Valadez MD ascorbate calcium (vitamin C) 1,000 mg PO DAILY budesonide-formoterol 160-4.5 mcg/actuation (Symbicort) 2 puffs inhalation BID 30 days cholecalciferol (vitamin D3) 25 mcg PO DAILY famotidine 20 mg PO DAILY 21 days ujenk-ac-0-uqo-gro-gjvrpmv-ast 192-615-19-64 mg 1 cap PO DAILY lactobacillus combination no.9 (Adult 50 Plus Probiotic) 4,000 mmu cells PO DAILY oregano oil 1,500 mg PO DAILY soybean, fermented (Nattokinase) 50 mg PO DAILY turmeric (bulk) 95% (Curcumin) 500 ea miscellaneous DAILY zinc glycinate 20 mg PO DAILY HPI Comments Details: Lori comes for follow-up. She says she feels a lot better since undergoing pulmonary evaluation treatment. She is currently not taking any medication but says his shortness of breath has got a lot better. Her chest discomfort also has got lot better. Although she has intermittent episode of chest discomfort which is not exertional related. She recently underwent a stress test which at high workload was negative for ischemia. She also had an echocardiogram she was normal structure of the heart. She comes for follow-up of the test results. [facility] Medical History Annual physical exam Allergies ABPA (allergic bronchopulmonary aspergillosis) Airway obstruction Bronchopneumonia Right foot pain Fracture of fifth toe, left, closed Displaced fracture of fifth metatarsal bone URI (upper respiratory infection) Rib pain on right side COVID-19 virus infection Acute viral bronchitis Colon cancer screening History of Wzcsg-Bdqkzklpp-Cqzlm (WPW) syndrome Osteoarthritis of knees, bilateral Chronic neck pain Breast cancer, left Surgical History H/O cardiac radiofrequency ablation (~2013) History of lumpectomy of left breast H/O: hysterectomy Family History Father Cholangiocarcinoma Atrial fibrillation Mother Myelofibrosis Paternal Uncle Myocardial infarct Social History Housing: House Are you a primary administrator health care facility to a significant other at home: No Do you presently have visiting nurse or other home services: No Alcohol intake: current Alcohol intake frequency: does not drink Comment: last 2022 Patient Tobacco Use Status: Never used Tobacco Tobacco use type: Cigarette e-Cigarette/Vaping Use: Never Used Second Hand Smoke Exposure: No service: No Current occupational status: employed and retired Cognitive needs: No Hearing needs: No Vision needs: Yes Review of Systems Const Denies chills, Denies fatigue, Denies fever(s), Denies frequent falls, Denies weakness, Denies weight gain and Denies weight loss ENT Denies dizziness Card Denies chest pain, Denies leg edema, Denies lightheadedness, Denies palpitations, Denies dyspnea, Denies dyspnea on exertion, Denies orthopnea and Denies other (loss of consciousness) Resp Denies cough, Denies dyspnea and Denies dyspnea on exertion GI Denies hematochezia and Denies change in stool character Musc Denies abnormal gait, Denies muscle weakness, Denies numbness, Denies radiating pain into limb and Denies tingling Neuro Denies abnormal gait, Denies dizziness, Denies frequent falls, Denies numbness, Denies tingling and Denies weakness Endo Denies fatigue and Denies palpitations Physical Exam Vital Signs: Last Vital Signs Pulse 82 07/10/24 14:48 BP 116/72 07/10/24 14:48 BMI result Body Mass Index 22.8 Const General: cooperative, comfortable, no acute distress, alert, awake, Physically active and well groomed Nutritional Appearance: average body habitus Orientation/consciousness: patient oriented x3 Limitations: no limitations HEENT Head: Yes normocephalic and Yes atraumatic Neck Neck: Yes trachea midline, Yes supple and Yes no JVD Resp Effort & Inspection: normal respiratory effort Auscultation: bronchial breath sounds on the right Cardio Jugular venous distension: no JVD Rate: regular rate Rhythm: regular rhythm Heart sounds: S1 normal heart sound present, S2 normal heart sound present, no click, no gallops, no murmurs and no rubs GI Auscultation: normal bowel sounds Skin General skin exam: no rashes or lesions noted Neuro General: patient oriented x3 and no focal motor deficits Extrem General: Yes no clubbing, cyanosis or edema Psych Appearance: grossly normal Assessment & Plan Assessment & Plan (1) Chest pain: Code(s): R07.9 - Chest pain, unspecified Category: Medical Qualifiers: Chest pain type: chest pain on breathing Qualified Code(s): R07.1 - Chest pain on breathing Plan: Atypical chest pain most likely due to bronchospastic airway disease. She has negative stress test at high workload and likelihood of obstructive coronary artery disease extremely low and this was discussed with her. Good prognosis with this was discussed. Normal structure of the heart by echocardiogram. This also discussed with her. I would advise her to further pursue risk s tratification with coronary calcium score given her strong family history for premature coronary artery disease also follow-up with lipid panel including novel lipid markers. She is agreeable to pursue that. Will follow-up after the test results. Thank you for allowing me to partake in his care Orders: Orders Lipid Panel 07/10/24 E78.00 - Pure hypercholesterolemia, unspecified CT Coronary Calcium Score 1 Week E78.00 - Pure hypercholesterolemia, unspecified CRP High Sensitivity 07/10/24 E78.00 - Pure hypercholesterolemia, unspecified, E78.5 - Hyperlipidemia, unspecified Lipoprotein A 07/10/24 E78.00 - Pure hypercholesterolemia, unspecified Apolipoprotein B 07/10/24 E78.00 - Pure hypercholesterolemia, unspecified Coding Level of Care Code Est Pt Level 3 (24098) Complex EM visit Add On G2211 Diagnoses Chest pain on breathing R07.1 Chest pain type: chest pain on breathing
--- OUTSIDE RECORDS SUMMARY | 2024-07-10 17:35 | XMS_ITS | Clinical Summary ---
Author Organization [facility] Address [address] [place] [address] Phone Care Team Providers Care Manager Logistic Name Role Phone Tripp Palomino MD Primary Care Provider [phone] Surgical History Surgery Date Site/Laterality Comments BREAST LUMPECTOMY PROCEDURE:BREAST LUMPECTOMY HYSTERECTOMY PROCEDURE:HYSTERECTOMY;COMMENT:partial Medical History Medical History Date Comments Breast cancer ([facility]/HCC) DX:Breas t cancer ([facility]) Social History Tobacco Use Types Packs/Day Years [...] Procedure Name Priority Date/Time Associated Diagnosis Comments [facility] SCREENING DIGITAL Routine 02/11/2022 6:00 PM EDT Encounter for screening mammogram for malignant neoplasm of breast from Last 3 Months or Most Recently Relevant to Health Maintenance Results * NIKI SCREENING DIGITAL (02/11/2022 6:00 PM EDT) Anatomical Region Laterality Modality Mammography 02/11/2022 8:58 AM EDT Narrative 02/11/2022 6:00 PM EDT [facility] Diagnostic Imaging Department [address] [place] [id number] Patient: ??CHIQUITA SANDOVAL ?/Age/Sex: 1965 - 56 - F Unit#: ??[id number] ? Location/Status: ??SPDIMAM/REG CLI ? Mnemonic/Ordering Site: [...] detection. Comparison made with previous mammograms from [facility] 02/03/2021 dating back to 03/13/2016. Findings: Breast tissue consists of a heterogenous combination of ??fatty and fibroglandular tissue, potentially obscuring small lesions, category c density (as calculated by VIEOpara software). Left mid breast grouped microcalcifications at [...] ??No suspicious interval change of the right. 73971, 88630 A negative mammogram in the face of [...] Procedure Note Keegan Maya MD - 04/29/2022 [facility] Diagnostic Imaging Department [address] [place] [address] Patient: CHIQUITA SANDOVAL Claudia /Age/Sex: 1965 - 56 - F Unit#: [id number] Location/Status: SPDIMAM/REG CLI Mnemonic/Ordering Site: [facility] Ordering Physician: RAD RED MD Niki [...] detection. Comparison made with previous mammograms from [facility]/03[facility]21 dating back to 03/13/2016. Findings: Breast tissue consists of a heterogenous combination of fattyand fibroglandular tissue, potentially obscuring small lesions, category cdensity (as calculated by [employer] Volpara software). Left mid breast grouped microcalcifications [...] No suspicious interval change of the right. 73829, 14407 A negative mammogram in the face of a clinically suspicious abnormalitydoes not exclude the possibility of malignancy nor alter the indications forbiopsy. Note: Patient information entered into a reminder system with a targetdue date for the next mammogram; PQRI II 7025F Dictating Physician: KEEGAN MAYA MD Electronically Signed by: KEEGAN MAYA MD Dic Date/Time: 02/11/221725 Sign date/Time: 02/11/221738 us Rad Alder MD IMG BI PROCEDURES Final Result from Last 3 Months or Most Recently Relevant to Health Maintenance Care Teams Manager Logistic Relationship Specialty Start Date End Date Tripp Palomino MD [address] [place] [address] [address] [facility] [place] [address] PCP - General Internal Medicine 09/18/20
--- OUTSIDE RECORDS SUMMARY | 2024-07-10 17:35 | XMS_ITS | Clinical Summary ---
Author Organization [facility] Address [address] [place] [address] Care Team Providers Care Building Coordinator Name Role Phone Tripp Palomino MD Primary Care Provider [phone] Allergies No known active allergies Medications Medication [...] age to complete this topic Care Teams Building Coordinator Relationship Specialty Start Date End Date PoTripp MD [address] [place] [address] [address] [facility] [place] [address] PCP - General Internal Medicine 07/22/20
--- OUTSIDE RECORDS SUMMARY | 2024-07-10 17:35 | XMS_ITS | Encounter Summary ---
Author Organization [facility] Address [address] [place] [address] Care Team Providers Care Padded Products Inspector Trimmer Name Role Phone Tripp Palomino MD Unavailable Unavailable Tripp Palomino MD Primary Care Provider Unavailabl e Encounter Details Date Type Department Care Team Description 08/19/2018 Release of Information Medical Records [address] [place] [id number] Abstract, Provider Social History Tobacco Use Types Packs/Day Years Used Date Smoking Tobacco: Never Assessed Sex Assigned at Date Recorded Not on file documented as of this encounter Plan of Treatment Not on file documented as of this encounter Visit Diagnoses Not on filedocumented in this encounter Care Teams Padded Products Inspector Trimmer Relationship Specialty Start Date End Date Tripp Palomino MD PCP - General Internal Medicine 09/18/20 Tripp Palomino MD Internal Medicine 09/18/20 documented as of this encounter
== END 2024-07-10 15:23 | disposition home or self-care (01) ==
PROVIDERS: PCP Internal Medicine; Visit Provider Internal Medicine Cardiovascular Disease
DX: R07.1 Chest pain on breathing (principal)
CPT/HCPCS: 99213; G2211

== ENCOUNTER 2024-08-03 06:51 | Outpatient (REF) | payer OTHER, SELFPAY ==
[2024-08-03 08:14] LABS: Cholesterol 194 mg/dL (<200); HDL Cholesterol 64 mg/dL (>40); LDL Cholesterol Calculated 119 mg/dL (<100); Triglycerides 58 mg/dL (<150)
[2024-08-03 08:31] LABS: Free T4 (Free Thyroxine) 1.04 ng/dL (0.71-1.85); Thyroid Stimulating Hormone 2.91 uIU/mL (0.32-4.0); Vitamin D 25-OH Total 45.3 ng/mL (>30)
[2024-08-03 08:43] LABS: Folate 11.5 ng/mL (> or = 4.0); Vitamin B12 393 pg/mL (200-900)
[2024-08-04 16:54] LABS: CRP High Sensitivity 0.8 mg/L
[2024-08-08 12:19] LABS: Apolipoprotein B 93 mg/dL (<90)
[2024-08-09 19:19] LABS: Lipoprotein A 44 nmol/L (<75)
== END 2024-08-03 06:52 | disposition home or self-care (01) ==
LOC: HO.LAB 06:51
PROVIDERS: Absent Provider Internal Medicine; PCP Internal Medicine; Visit Provider Internal Medicine Cardiovascular Disease
DX: E78.00 Pure hypercholesterolemia, unspecified (principal); E78.5 Hyperlipidemia, unspecified
CPT/HCPCS: 36415; 80061; 82172; 82306; 82607; 82746; 83695; 84439; 84443; 86141

== ENCOUNTER 2024-08-03 09:41 | Outpatient (AMB) | payer OTHER, SELFPAY ==
[2024-08-03 09:45] VITALS: BP 107/72; PULSE 73; BMI 23.4
--- NOTE | 2024-08-03 09:45 | A.OFFVIS_ITS ---
Vital Signs 08/03/24 09:45 Height 5 ft 10 in Weight 163 lb 2.273 oz BMI 23.4 BP 107/72 Blood Pressure Location Lt brachial Position Sitting Pulse 73 Intake Visit Reasons: 6 mo GERD, Bloating r/s from 05/30 Intake Note: Lori presents in follow up of GERD and bloating. CC: Patient reports that she continues having bloating and has been having constipation for the last few months. Video Game Developer Required: No Accompanied by: Self / Same As Patient Allergies No Known Allergies Allergy (Verified 08/03/24 09:48) HPI HPI 6 mo GERD, Bloating r/s from 05/30: Details: Assessment & Plan (1) Abdominal bloating: Code(s): R14.0 - Abdominal distension (gaseous) Category: Medical (2) GERD (gastroesophageal reflux disease): Code(s): K21.9 - Gastro-esophageal reflux disease without esophagitis Category: Medical Plan She had improvement on the flagyl with the bloating and she tolerated the medicine well except for a return of her hot flashes. This is a possible s/e documented with this medication. However she would rather have the hot flashes that her bloating and she is actually quite satisfied now with her GI regimen. She continues on a probiotic supplement and we briefly discussed prebiotic supplementation but this can be a gaseous pill am not sure we want to go there. ROV 6 mos TODAY'S VISIT She has had a LOT of health discoveries!! She went syl ID provider who thought she had a lyme variant and put her on heavy abx. 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 They had a re model and hnow she is feeling much better!!! HOwever she had a bad bout of Norovirus and now she has some CIC and bloating. She drinks a lot of water, exercises and eats y ogurt and konmucha and has added minerva seeds. We will wait and watch. ROV 3 mos. [facility] Medical History (Reviewed 08/03/24 @ 09:52 by Madisyn Lyon [facility]) Annual physical exam Allergies ABPA (allergic bronchopulmonary aspergillosis) Airway obstruction Bronchopneumonia Right foot pain Fracture of fifth toe, left, closed Displaced fracture of fifth metatarsal bone URI (upper respiratory infection) Rib pain on right side COVID-19 virus infection Acute viral bronchitis Colon cancer screening History of Yifsk-Kcmbcdcvi-Bkody (WPW) syndrome Osteoarthritis of knees, bilateral Chronic neck pain Breast cancer, left Surgical History H/O cardiac radiofrequency ablation (~2013) History of lumpectomy of left breast H/O: hysterectomy Family History Father Cholangiocarcinoma Atrial fibrillation Mother Myelofibrosis Paternal Uncle Myocardial infarct Social History Housing: House Are you a primary wound care nurse to a significant other at home: No Do you presently have visiting nurse or other home services: No Alcohol intake: current Alcohol intake frequency: does not drink Comment: last 2022 Patient Tobacco Use Status: Never used Tobacco Tobacco use type: Cigarette e-Cigarette/Vaping Use: Never Used Second Hand Smoke Exposure: No service: No Current occupational status: employed and retired Cognitive needs: No Hearing needs: No Vision needs: Yes Review of Systems Const Denies fatigue, Denies fever(s), Denies night sweats, Denies poor appetite and Denies weight loss ENT Reports Normal hearing present, Denies dental pain, Denies dysphagia, Denies hearing loss, Denies mouth pain, Denies odynophagia, Denies throat swelling, Denies tongue swelling and Reports other (Dentition adequate) Card Reports no additional complaints Resp Reports no additional complaints GI Details: Denies abdominal pain, Denies melena, Denies bloating, Denies hematochezia, Reports constipation, Denies GI cramping, Denies dysphagia, Denies excessive flatus, Denies early satiety, Denies heartburn, Denies diarrhea, Denies nausea, Denies odynophagia, Denies vomiting and Denies hematemesis Skin/Breast Denies pruritus, Denies lesions, Denies rash and Denies jaundice Neuro Reports Normal hearing present and Denies Abnormal speech present Endo Denies fatigue Aller/Immun Denies throat swelling and Denies tongue swelling Physical Exam Vital Signs: Last Vital Signs Pulse 73 08/03/24 09:45 BP 107/72 08/03/24 09:45 BMI result Body Mass Index 23.4 Const General: cooperative, no acute distress, well developed and well groomed Nutritional Appearance: average body habitus and well nourished Orientation/consciousness: oriented to person, oriented to place and oriented to time Limitations: No language barrier HEENT Head: Yes normocephalic and Yes atraumatic Eyes General: appearance normal, both eyes and all related structures Pupils: Equal, round and reactive pupils present Neck Neck: Yes normal visual inspection and Yes no lymphadenopathy Thyroid: Thyroid normal Resp Effort & Inspection: normal respiratory effort and able to speak in complete sentences Auscultation: clear to auscultation bilaterally Cardio Rate: regular rate Rhythm: regular rhythm Heart sounds: Normal, physiologic split S2 sound present Peripheral pulses: radial pulses present and posterior tibial pulses present GI Inspection: No distended and No Abdominal panniculus present Palpation (GI): Soft to palpation, nontender, no guarding, not rigid and No hepatosplenomegaly present Percussion: Yes normal to percussion Auscultation: normal bowel sounds Rectal Exam - Female: deferred Skin General skin exam: no rashes or lesions noted, turgor normal, skin not dry, no jaundice, No spider nevi and no striae Rashes: no rashes Nails: normal Neuro General: oriented to person, oriented to place and oriented to time Cranial nerves: Yes Equal, round and reactive pupils present and Yes Normal hearing present Speech: No Abnormal speech present Extrem General: Yes normal to inspection, No clubbing, No cyanosis and No edema Psych Appearance: grossly normal and well kempt Mental Status: mental status grossly normal Speech and movement: Normal speech and movement present Affect: normal affect Attitude: cooperative Thought process: Normal thought process present and not confabulating Thought content: Normal thought content present Insight: Good insight present (Psych) Judgement: Good judgement present (Psych) Assessment & Plan Assessment & Plan (1) GERD (gastroesophageal reflux disease): Code(s): K21.9 - Gastro-esophageal reflux disease without esophagitis Category: Medical Qualifiers: Esophagitis presence: without esophagitis Qualified Code(s): K21.9 - Gastro-esophageal reflux disease without esophagitis (2) Abdominal bloating: Code(s): R14.0 - Abdominal distension (gaseous) Category: Medical Plan She has had a LOT of health discoveries!! She went syl ID provider who thought she had a lyme variant and put her on heavy abx. 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 They had a re model and hnow she is feeling much better!!! HOwever she had a bad bout of Norovirus and now she has some CIC and bloating. She drinks a lot of water, exercises and eats y ogurt and konmucha and has added minerva seeds. We will wait and watch. ROV 3 mos. Coding Level of Care Code Est Pt Level 3 (07275) Diagnoses Gastroesophageal reflux disease without esophagitis K21.9 Esophagitis presence: without esophagitis Abdominal bloating R14.0
--- OUTSIDE RECORDS SUMMARY | 2024-08-03 11:51 | XMS_ITS | Clinical Summary ---
Author Organization [facility] Address [address] [place] [address] Care Team Providers Care Chief Pharmacist Name Role Phone Tripp Palomino MD Primary Care Provider [phone] Allergies No known active allergies Medications Medication [...] age to complete this topic Care Teams Chief Pharmacist Relationship Specialty Start Date End Date PoTripp MD [address] [place] [address] [address] [facility] [place] [address] PCP - General Internal Medicine 07/22/20
--- OUTSIDE RECORDS SUMMARY | 2024-08-03 11:52 | XMS_ITS | Clinical Summary ---
Author Organization [facility] Address [address] [place] [address] Phone Care Team Providers Care Pulp Grinder Feeder Name Role Phone Tripp Palomino MD Primary Care Provider [phone] Surgical History Surgery Date Site/Laterality Comments BREAST LUMPECTOMY PROCEDURE:BREAST LUMPECTOMY HYSTERECTOMY PROCEDURE:HYSTERECTOMY;COMMENT:partial Medical History Medical History Date Comments Breast cancer DX:Breast cancer (HCC) Social History Tobacco Use Types Packs/Day Years [...] Procedure Name Priority Date/Time Associated Diagnosis Comments NIKI SCREENING DIGITAL Routine 02/11/2022 6:00 PM EDT Encounter for screening mammogram for malignant neoplasm of breast from Last 3 Months or Most Recently Relevant to Health Maintenance Results * NIKI SCREENING DIGITAL (02/11/2022 6:00 PM EDT) Anatomical Region Laterality Modality Mammography 02/11/2022 8:58 AM EDT Narrative 02/11/2022 6:00 PM EDT [facility] Diagnostic Imaging Department [address] [place] [address] Patient: ??CHIQUITA SANDOVAL ?/Age/Sex: 1965 - 56 - F Unit#: ??[id number] ? Location/Status: ??SPDIMAM/REG CLI ? Mnemonic/Ordering Site: [...] lesions, category c density (as calculated by [employer] software). Left mid breast grouped microcalcifications at [...] ??No suspicious interval change of the right. 70819, 85252 A negative mammogram in the face of [...] Procedure Note Keegan Maya MD - 04/29/2022 [facility] Diagnostic Imaging Department [address] [place], [place] [id number] Patient: CHIQUITA SANDOVAL Claudia /Age/Sex: 1965 - 56 - F Unit#: [id number] [facility]/Ordering Site: [facility] Ordering Physician: RAD RED MD Niki Screening [...] small lesions, category cdensity (as calculated by [employer] Volpara software). Left mid breast grouped microcalcifications [...] No suspicious interval change of the right. 83995, 56876 A negative mammogram in the face of a clinically suspicious abnormalitydoes not exclude the possibility of malignancy nor alter the indications forbiopsy. Note: Patient information entered into a reminder system with a targetdue date for the next mammogram; PQRI II 7025F Dictating Physician: KEEGAN MAYA MD Electronically Signed by: KEEGAN MAYA MD Dic Date/Time: 02/11/221725 Sign date/Time: 02/11/221738 Rad Adler MD IMG BI PROCEDURES Final Result from Last 3 Months or Most Recently Relevant to Health Maintenance Care Teams Pulp Grinder Feeder Relationship Specialty Start Date End Date Po, MD Tripp [address] [place] [address] [address] [facility] [place] [address] PCP - General Internal Medicine 09/18/20
== END 2024-08-03 10:33 | disposition home or self-care (01) ==
LOC: HO.HGI 09:41
PROVIDERS: PCP Internal Medicine; Visit Provider Nurse Practitioner
DX: K21.9 Gastro-esophageal reflux disease without esophagitis (principal); R14.0 Abdominal distension (gaseous)
CPT/HCPCS: 99213

== ENCOUNTER 2024-09-20 08:28 | Outpatient (AMB) | payer OTHER, SELFPAY ==
[2024-09-20 08:31] VITALS: BP 114/68; PULSE 78; O2SAT 96; BMI 22.8
--- NOTE | 2024-09-20 08:31 | A.OFFPC_ITS ---
Vital Signs 09/20/24 08:31 Height 5 ft 10 in Weight 159 lb BMI 22.8 BP 114/68 Blood Pressure Location Lt brachial Position Sitting Pulse 78 Pulse Source Pulse Oximeter Pulse Oximetry (%) 96 Oxygen Delivery Method Room Air Intake Visit Reasons: 6 month f/u Allergies No Known Allergies Allergy (Verified 09/20/24 08:31) Medication List - Last Reconciled 09/20/24 by Tripp Palomino MD albuterol sulfate 90 mcg/actuation 2 puffs inhalation Q4-6H PRN ascorbate calcium (vitamin C) 1,000 mg PO DAILY budesonide-formoterol 160-4.5 mcg/actuation (Symbicort) 2 puffs inhalation BID 30 days cholecalciferol (vitamin D3) 25 mcg PO DAILY famotidine 20 mg PO DAILY 21 days [id number]-dyk-vgr-pljxvhk-ast [id number] mg 1 cap PO DAILY lactobacillus combination no.9 (Adult 50 Plus Probiotic) 4,000 mmu cells PO DAILY levocetirizine (Xyzal) 5 mg PO DAILY oregano oil 1,500 mg PO DAILY soybean, fermented (Nattokinase) 50 mg PO DAILY turmeric (bulk) 95% (Curcumin) 500 ea miscellaneous DAILY zinc glycinate 20 mg PO DAILY Tobacco use date assessed: 09/20/24 Dental Screening Dental Screen Date: 09/20/24 Did you have a dental visit in the last 12 months?: Yes Did you have a dental problem in the last 6 months where you did not have access to dental care?: No Was dental information given to patient?: Patient has dentist HPI 6 month f/u HPI Details on xyzal will have desensitization , on albuterol and symbicort 59-year-old female with a history of lef t breast cancer 2016 history of GERD history of hypercholesterolemia chronic leukopenia ABPA being monitored by [facility]. Has had some problems with breathing. Review of the notes has been seeing Cardiology and has had extensive workup doing echocardiogram, stress test and the last test of coronary artery calcium scoring which is negative. Review of the notes in March had the pulmonary function test showing negative results. Meanwhile patient has been having a lot of shortness of breath congestion which has been referred to Allergy and testing showing multiple allergies. 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 Patient has also seen gastroenterology for chronic idiopathic constipation as well as GERD. Patient is here for follow-up [facility] Medical History Annual physical exam Allergies ABPA (allergic bronchopulmonary aspergillosis) Airway obstruction Bronchopneumonia Right foot pain Fracture of fifth toe, left, closed Displaced fracture of fifth metatarsal bone URI (upper respiratory infection) Rib pain on right side COVID-19 virus infection Acute viral bronchitis Colon cancer screening History of Afeui-Bfkkotxon-Gxafy (WPW) syndrome Osteoarthritis of knees, bilateral Chronic neck pain Breast cancer, left Surgical History H/O cardiac radiofrequency ablation (~2013) History of lumpectomy of left breast H/O: hysterectomy Family History Father Cholangiocarcinoma Atrial fibrillation Mother Myelofibrosis Paternal Uncle Myocardial infarct Social History Housing: House Are you a primary critical care technician to a significant other at home: No Do you presently have visiting nurse or other home services: No Alcohol intake: current Alcohol intake frequency: does not drink Comment: last 2022 Patient Tobacco Use Status: Never used Tobacco Tobacco use type: Cigarette e-Cigarette/Vaping Use: Never Used Second Hand Smoke Exposure: No service: No Current occupational status: employed and retired Cognitive needs: No Hearing needs: No Vision needs: Yes Questionnaire PHQ-9 Over the last 2 weeks, how often have you been bothered by any of the following problems? 1. Little interest or pleasure in doing things: not at all 2. Feeling down, depressed, or hopeless: not at all 3. Trouble falling or staying asleep, or sleeping too much: not at all 4. Feeling tired or having little energy: not at all 5. Poor appetite or overeating: not at all 6. Feeling bad about yourself - or that you are a failure or have let yourself or your family down: not at all 7. Trouble concentrating on things, such as reading the newspaper or watching television: not at all 8. Moving or speaking so slowly that other people could have noticed. Or the opposite - being so fidgety or restless that you have been moving around a lot more than usual: not at all 9. Thoughts that you would be better off or of hurting yourself in some way: not at all Total score: 0 Depression Screening Interpretation: Negative Depression Screening Done: Yes Source: Developed by Drs. Florian Tapia, Ana Krishnan, Evangelist Alva and colleagues, with an educational violeta from [employer]. Thrive Questionnaire Date Thrive assessed: 09/13/24 I am a: Patient What is your living situation today?: I have a steady place to live Within the past 12 months, did the food you bought not last and you didn't have the money to get more?: Never true Within the past 12 months, did you worry whether your food would run out before you got money to buy more?: Never true Do you have trouble paying for medicines?: No Do you have trouble getting transportation to medical appointments?: No Do you have trouble paying your heating and electricity bill?: No Do you have trouble taking care of your child, family member or friend?: No Do you have trouble with day-to-day activities such as bathing, preparing meals, shopping, managing finances, etc.?: No Are you currently unemployed and looking for a job?: No Are you interested in more education?: No Please select the resources that you would like help with: None Currently or been in a relationship where the following occur: No concerns reported THRIVE Score: 0 AUDIT C Alcohol Use Questionnaire (AUDIT-C) 1. How often do you have a drink containing alcohol?: Never Total Score: 0 CORINE-7 AMB Questionnaire CORINE-7 Date CORINE - 7 assessed: 09/20/24 Feeling nervous, anxious, or on edge: 0 = Not at all Not being able to stop or control worryin = Not at all Worrying too much about different things: 0 = Not at all Trouble relaxin = Not at all Being so restless that it is hard to sit still: 0 = Not at all Becoming easily annoyed or irritable: 0 = Not at all Feeling afraid as if something awful might happen: 0 = Not at all Total CORINE-7 score (0-4 normal; 5-9 mild; 10-14 moderate; 15-21 severe): 0 Source: Developed by Drs. Florian Tapia, Ana Krishnan, Evangelist Alva and colleagues, with an educational violeta from [employer]. Physical exam (Primary Care) Vital Signs: Last Vital Signs Pulse 78 09/20/24 08:31 BP 114/68 09/20/24 08:31 Pulse Ox 96 09/20/24 08:31 Oxygen Delivery Method Room Air 09/20/24 08:31 BMI result Body Mass Index 22.8 Tobacco/Smoking Status: Tobacco use Status Tobacco use date assessed 09/20/24 09/20/24 08:37 Patient Tobacco Use Status Never used Tobacco 09/20/24 08:37 Tobacco use type Cigarette 09/20/24 08:37 e-Cigarette/Vaping Use Never Used 09/20/24 08:37 PHQ-9: PHQ-9 Score PHQ-9: Total score 0 09/20/24 08:37 Depression Screening Interpretation: Negative Thrive Assessment: Date of Thrive Assessment Date Thrive assessed 09/13/24 09/20/24 08:37 Currently or been in a relationship where the following occur: No concerns reported Const General: alert; No acute distress Eyes Conjunctivae: conjunctivae normal Resp Auscultation: clear to auscultation bilaterally Cardio Rate: regular rate Rhythm: regular rhythm GI Inspection: Yes normal to inspection Extrem General: Yes normal to inspection and No edema Coding Level of Care Code Est Pt Level 4 (02412) Diagnoses Chronic leukopenia D72.819 Malignant neoplasm of left female breast, unspecified estrogen receptor status, unspecified site of breast C50.912 Breast location: unspecified site of breast Estrogen receptor status: unspecified Patient sex: female Chest pain on breathing R07.1 Chest pain type: chest pain on breathing Bronchiectasis J47.9 Allergic rhinitis J30.9 Assessment & Plan Assessment & Plan (1) Chronic leukopenia: Code(s): D72.819 - Decreased white blood cell count, unspecified Category: Medical Plan: And is being monitored by hematology oncology (2) Breast cancer, left: Comment: Intermediate grade ductal carcinoma insitu 2016 lumpectomy and tamoxifen(no radiation) Michelle Code(s): C50.912 - Malignant neoplasm of unspecified site of left female breast Category: Medical Qualifiers: Breast location: unspecified site of breast Estrogen receptor status: unspecified Patient sex: female Qualified Code(s): C50.912 - Malignant neoplasm of unspecified site of left female breast Plan: Continue to follow-up with Hematology-Oncology (3) Chest pain: Code(s): R07.9 - Chest pain, unspecified Category: Medical Qualifiers: Chest pain type: chest pain on breathing Qualified Code(s): R07.1 - Chest pain on breathing Plan: Patient had an extensive cardiac workup and is negative. (4) Bronchiectasis: Code(s): J47.9 - Bronchiectasis, uncomplicated Category: Medical Plan: Patient has been prescribed Symbicort as well as albuterol which has helped her. Advise rinsing mouth after using. (5) Allergic rhinitis: Code(s): J30.9 - Allergic rhinitis, unspecified Category: Medical Plan: for allergy shots Plan History of Present Illness The patient is a 59-year-old female presenting with allergic symptoms and asthma exacerbation. Over the last two weeks, she reports significant wheezing, congestion, and severe cough producing sticky, yellowish-green sputum. She denies fever and attributes these symptoms predominantly to allergies. The asthma exacerbation correlates with increased exposure to potential allergens, including dust mites and black mold found in her home after a concealed leak. Current allergen desensitization therapy through weekly injections has commenced. Her allergy management includes a daily dose of Xyzal, although it causes mild drowsiness. She has also ramped up the use of a Symbicort inhaler, supported by albuterol for acute symptom release. Furthermore, the patient experiences hair loss possibly linked to menopause, and a one-month history of mild constipation. Despite these symptoms, she sustains a nutritionally rich diet with adequate hydration. Health Maintenance - Ongoing allergen desensitization shots for dust mites and airborne allergens. - Discussion about dietary fiber intake with focus on adding flaxseeds. - Monitoring asthma control and management with inhalers. Social History - The patient enjoys working outdoors and values fresh air despite allergy issues. - Recent exposure to black mold at home due to a leak; home renovations have been carried out. - Practices a diet rich in fiber and adequate water intake. Review of Systems - Respiratory: Reports wheezing, congestion, and productive cough. Denies fever. - Outside influences: Reports hair loss; constipation has developed. - Denies changes in urination. Physical Exam - General- No noted redness. Patient appears comfortable. - Respiratory- Clear lung sounds upon auscultation, with improved clarity from previous reports. Results Plan The patient's treatment plan currently includes continuing Xyzal for allergic symptoms, preferably taken at night due to mild drowsiness, and maintaining the use of Symbicort for asthma control. Albuterol is available for acute symptom relief. Her ongoing allergen desensitization shots, designed to target dust and mold sensitivities, require strict adherence to the schedule. Regarding her menopause-related hair loss, lab results were reviewed and appear normal, suggesting stress as a possible factor. She will monitor constipation linked to changes in dietary habits and may consider OTC fiber products if needed. A follow-up is advised aligned with her allergy treatment schedule. Patient was informed and verbally consented to the use of an ambient scribe for clinic note documentation during this visit. Discussion Notes I explained the patient's current treatment approach for allergic symptoms and asthma, detailing medication mechanisms such as Xyzal at night and emphasizing Symbicort as a appiah management tool. We discussed allergy desensitization, including its strict schedule and potential long-term relief benefits. The possibility of stress affecting hair loss was noted, although thyroid function tests were normal, and dietary fiber, possibly contributing to symptoms of constipation, was examined. Continued communication is vital to ensure aligned p atient expectations and effective implementations of allergy shots as well as monitoring asthma symptoms. Patient Instructions - Take Xyzal at bedtime to reduce drowsiness during the day. - Use Symbicort inhaler twice daily consistently for asthma control. - Utilize albuterol inhaler for immediate relief of acute symptoms. - Follow the scheduled weekly allergy shots for desensitization. - Monitor diet and fiber intake; consider OTC options for constipation. - Report any significant increase in asthma symptoms or continued hair loss. - Follow up as planned for ongoing assessments and management. Medications: New albuterol sulfate 90 mcg/actuation 2 puffs inhalation Q4-6H PRN 8.5 grams 0RF bronchospasm J47.9 - Bronchiectasis, uncomplicated albuterol sulfate 90 mcg/actuation 2 puffs inhalation Q4-6H PRN 8.5 grams 0RF bronchospasm J47.9 - Bronchiectasis, uncomplicated
--- OUTSIDE RECORDS SUMMARY | 2024-09-20 08:44 | XMS_ITS | Clinical Summary ---
Author Organization [facility] Address [address] [place] [address] Phone Care Team Providers Care Veterans Services Specialist Name Role Phone Tripp Palomino MD Primary Care Provider [phone] Surgical History Surgery Date Site/Laterality Comments BREAST LUMPECTOMY PROCEDURE:BREAST LUMPECTOMY HYSTERECTOMY PROCEDURE:HYSTERECTOMY;COMMENT:partial Medical History Medical History Date Comments Breast cancer (CMS/HCC V24, CMS/HCC V28) DX:Breast cancer ([facility]) Social History Tobacco Use Types Packs/Day Years [...] Vaccine (1 - 2023-2 5 season) 2024 Breast Cancer Screening 02/12/2024 02/12/20, 02/04/2021, 02/02/2020 Influenza Vaccine (Season Ended) 2025 HIB Vaccines Aged Out No longer eligi [...] age to complete this topic Meningococcal B Vaccine Aged Out No l onger eligible based on patient's age to complete [...] Procedure Name Priority Date/Time Associated Diagnosis Comments [facility] SCREENING DIGITAL Routine 02/11/2022 6:00 PM EDT Encounter for screening mammogram for malignant neoplasm of breast from Last 3 Months or Most Recently Relevant to Health Maintenance Results * NIKI SCREENING DIGITAL (02/11/2022 6:00 PM EDT) Anatomical Region Laterality Modality Mammography 02/11/2022 8:58 AM EDT Narrative 02/11/2022 6:00 PM EDT [facility] Diagnostic Imaging Department [address] [place] [id number] Patient: ??IRMA SANDOVALA Claudia ?/Age/Sex: 1965 56 - F Unit#: ??[id number] ? Location/Status: ??SPDIMAM/REG CLI ? Mnemonic/Ordering Site: [...] detection. Comparison made with previous mammograms from [facility] 02/03/2021 dating back to 03/13/2016. Findings: Breast tissue consists of a heterogenous combination of ??fatty and fibroglandular tissue, potentially obscuring small lesions, category c density (as calculated by [employer] software). Left mid breast grouped microcalcifications at [...] ??No suspicious interval change of the right. 25044, 10345 A negative mammogram in the face of a clinically suspicious abnormality does not exclude the possibility of malignancy nor alter the indications for biopsy. Note: Patient information entered ??into a reminder system with a target due date for the next mammogram; PQRI II 7036F Dictating Physician: ??KEEGAN MAYA MD Electronically Signed by: ??KEEGAN MAYA MD Dic Date/Time: ??02/11/22 172 Sign date/Time: ??02/11/22 173 Procedure Note Keegan Maya MD - 04/29/2022 [facility] Diagnostic Imaging Department [address] [place], [place] [id number] Patient: LORIIRMAA Claudia /Age/Sex: 1965 - 56 - F Unit#: [id number] Location/Status: SPDIMAM/REG CLI Mnemonic/Ordering Site: [facility] Ordering Physician: RAD RED MD Niki Screening Digital - 02/11/22 - 913 ADDENDUM BIRADS Category 0, Incomplete: Needs additional imaging evaluation,3340F Addendum Dictated By: KEEGAN MAYA MD Addendum Esigned by: KEEGAN MAYA MD Dictated: 02/11/2209/28/1753 Signed:02/11/22 1800 ORIGINAL REPORT History: Bilateral breast cancer screening. Past history of lumpectomyfor ADH site of microcalcifications. Technique: Digital mammography. Conventional CC and MLO projections with tomosynthesis MLO views and computer aided detection. Comparison made with previous mammograms from [facility]03/2021 dating back to 03/13/2016. Findings: Breast tissue consists of a heterogenous combination of fattyand fibroglandular tissue, potentially obscuring small lesions, category cdensity (as calculated by [employer] software). Left mid breast grouped microcalcifications [...] No suspicious interval change of the right. 75178, 41282 A negative mammogram in the face of a clinically suspicious abnormalitydoes not exclude the possibility of malignancy nor alter the indications forbiopsy. Note: Patient information entered into a reminder system with a targetdue date for the next mammogram; PQRI II 7025F Dictating Physician: KEEGAN MAYA MD Electronically Signed by: KEEGAN MAYA MD Dic Date/Time: 02/11/221725 Sign date/Time: 02/11/22 1739 us Rad Adler MD IMG BI PROCEDURES Final Result from Last 3 Months or Most Recently Relevant to Health Maintenance Care Teams Veterans Services Specialist Relationship Specialty Start Date End Date Tripp Palomino MD [address] [place] [address] [address] [facility] [place] [address] PCP - General Internal Medicine 09/18/20
--- OUTSIDE RECORDS SUMMARY | 2024-09-20 08:44 | XMS_ITS ---
Author Organization [facility] [place] Address [address] [place] [address] Care Team Providers Care Entertainment Reporter Name Role Phone CandelarioTripp Primary Care Provider Unavailabl e Black, Danya Unavailable [phone] Allergies No Known Allergies Results Component Value [...] 06/10/2023 Encounters Encounter Location Date Provider Diagnosis [facility] [address] [place] [address] 06/10/2023 Danya Mccall Pain in left foot [...] Lori SANDOVAL ADOB: 8 (58 yo F)Acc No.[id number]:06/10/2023 Progress Notes Patient:?Lori Sandoval A Provider:?Danya Mccall DPM :1965???Age:58 Y???Sex:Female D ate:06/10/2023 Address: [address] [place], [place] Pcp:Tripp Palomino Subjective: * Chief Complaints: [...] (PERONEAL TENDON INJURY REHAB. EXERCISES.pdf)?? * Procedure Codes:?96826 X-RAY EXAM OF LEFT FOOT 3V, Modifiers: [...] Mccall DPM Date:?2023 Generated for Keyanna mcdonnell/Masoud/Brandon on:?09/20/2024 08:43 AM EDT History and Physical Notes * HPI (History [...] , B/L FOOT MORPHOLOGY: normal , B/L FOOTWEAR EVALUATION: good condition TAILOR'S BUNION: , Enlarged, painful, [...]
--- OUTSIDE RECORDS SUMMARY | 2024-09-20 08:44 | XMS_ITS | Patient Health Record ---
Author Organization [facility] Address [address] [place] [address] Care Team Providers Care Asphalt Tar And Gravel Roofer Name Role Phone Tripp Palomino Primary Care Provider Unavailabl e Black, Danya Unavailable [phone] Allergies No Known Allergies Reason For Referral [...] Are you an other tobacco user? No Plan Of Treatment No Information Insurance Providers Payer Name Payer Address Payer Phone Subscriber Number Group Number Insured Name Patient Relationship to Insured Coverage Start Date Coverage End Date WEB TPA [address] [address] [place] [phone] [id number] RU Lori Angel Self - patient is the insured Medical (General) History Medical History History ICD Code Arthritis Back,Hip,and Knee pain Broken bones CAD (Cholesterol) Cancer covid-19 Headaches/Migraines Heart disease Surgical History Surgery Date(Month/Year) partial hysterectomy 11/2010 lumpectomy, left breast 2016 heart ablation 04/2014
--- OUTSIDE RECORDS SUMMARY | 2024-09-20 08:44 | XMS_ITS ---
[facility] Address [address] [place] [address] Care Team Providers Care Smasher Hand Name Role Phone Tripp Palomino Primary Care Provider Unavailabl e Black, Danya Unavailable [phone] Allergies No Known Allergies REASON FOR VISIT [...] 024 Encounters Encounter Location Date Provider Diagnosis [facility] [address] [place] [address] 08/02/2023 Danya Black Pain in left foot [...] Lori SANDOVAL ADOB: 8 (58 yo F)Acc No.[id number]:08/02/2023 Progress Notes Patient:?Lori Sandoval Provider:?Danya Mccall DPM :1965???Age:58 Y???Sex:Female D ate:08/02/2023 Address:[address] [place] [id number] Pcp:Tripp Palomino Subjective: * Chief Complaints: * [...] Mccall DPM Date:?2023 Generated for Keyanna mcdonnell/Masoud/eTransmitting on:?09/20/2024 08:44 AM EDT History and Physical Notes * [...]
--- OUTSIDE RECORDS SUMMARY | 2024-09-20 08:44 | XMS_ITS ---
Author Organization [facility] Address [address] [place] [address] Care Team Providers Care Harvester Operator Name Role Phone Tripp Palomino Primary Care Provider Unavailabl e Black, Danya Unavailable [phone] REASON FOR VISIT Mckay ok? Encounters Encounter Location Date Provider Diagnosis [facility] [address] [place] [address] 06/10/2023 Danya Black Plan Of Treatment No Information Progress Notes * Lori SANDOVAL ADOB: 8 (58 yo F)Acc No.[id number]:06/10/2023 Patient:?Stanley Lori Claudia :1965???Age:58 Y???Sex:Female Address:[address] [place] [address] [place], [address] * true * Date:? Generated for Printi ng/Fatatianag/eTransmitting on:?09/20/2024 08:43 AM EDT
--- OUTSIDE RECORDS SUMMARY | 2024-09-20 08:44 | XMS_ITS | Clinical Summary ---
Author Organization [facility] Address [address] [place] [address] Care Team Providers Care Laborer Wharf Name Role Phone Tripp Palomino MD Primary Care Provider [phone] Allergies No known active allergies Medications Medication [...] age to complete this topic Care Teams Laborer Wharf Relationship Specialty Start Date End Date PoTripp MD [address] [place] [address] [address] [facility] [place] [address] PCP - General Internal Medicine 07/22/20
== END 2024-09-20 09:08 | disposition home or self-care (01) ==
LOC: HO.HMCH 08:29
PROVIDERS: PCP Internal Medicine; Visit Provider Internal Medicine
DX: D72.819 Decreased white blood cell count, unspecified (principal); C50.912 Malignant neoplasm of unspecified site of left female breast; R07.1 Chest pain on breathing; J47.9 Bronchiectasis, uncomplicated; J30.9 Allergic rhinitis, unspecified

== ENCOUNTER → 2024-09-20 08:28 | Outpatient (BNVA) | payer OTHER, SELFPAY | PROVIDERS: PCP Internal Medicine; Visit Provider Internal Medicine | DX: Z13.89 Encounter for screening for other disorder (principal) ==

== ENCOUNTER 2024-11-28 08:51 | Outpatient (AMB) | payer OTHER, SELFPAY ==
--- NOTE | 2024-11-28 08:55 | MHC.OFFVIS ---
Vital Signs 11/28/24 09:03 Height 5 ft 10 in Weight 160 lb 14.999 oz BMI 23.1 BP 96/56 L Blood Pressure Location Lt brachial Position Sitting Pulse 74 Pulse Source Pulse Oximeter Pulse Oximetry (%) 97 Oxygen Delivery Method Room Air Intake Visit Reasons: persistent cough Operations And Maintenance Specialist Required: No Accompanied by: Self / Same As Patient Allergies No Known Allergies Allergy (Verified 11/28/24 09:04) HPI Comments Details: The patient is a 59 year woman with a known history of breast cancer, WPW, in addition to leukopenia who was being worked up for tick-borne diseases. She has been not feeling well now for about a year. She has had a worsening cough at times productive moderate to severe. In addition to that she has had some decreased energy and chest discomfort. Over the summer that she went to a specialist and she was diagnosed with chronic legionnaires in addition to that she was given a diagnosis of tick-borne diseases and she was started on antibiotic regimen including rifampin, azithromycin in addition to doxycycline. She did tolerate the antibiotics but she started developing again worsening cough congestion shortness breath and chest discomfort. Of which point the patient did have imaging studies done. I did personally review a CT scan of the chest that she had which appears to have a blockage of theright sided bronchus intermedius in addition to that significant mucus plugging of the right lower lobe along with airspace disease consistent with a bronchopneumonia. No lymphadenopathy appreciated. No other involvement of disease. On further questioning she denies any hemoptysis. Sometimes though she gets a metallic taste in her mouth. In addition to that she denies any event. Based on the imaging studies in her symptoms I did recommend bronchoscopy at this point to try to delineate the obstruction self and provide her therapeutic and diagnostic procedure. The patient is agreeable at this time. 03/16/2024 the patient is here for a pulmonary follow-up visit. Overall she is doing better after the bronchoscopy. She had severe mucus plugging of the right mainstem bronchus bronchus intermedius and right lower lobe and right middle lobe airways. The biopsies were consistent with eosinophilic infiltration likely allergic. The microbiology was positive for Aspergillus fumigatus. On further history patient apparently is getting the bathroom in reducing it as they found significant amount of black mold likely bringing up the possibility of allergic bronchopulmonary aspergillosis with significant mucus plugs, ?hand and glove ?. She has had some coughing spells since we last spoke with the she is doing a lot better. A 1 point she did feel significant pulling and tugging on the right chest from coughing hurting herself. Now her to take a deep breath. She may have fractured rib. She will continue to monitor. If that does not get better she should come in for an x-ray. In the meantime will have her undergo additional blood work including hypersensitivity panel allergy panel for mold specially for Aspergillus to see if she has evidence of allergic bronchopulmonary aspergillosis (ABPA). Her eosinophil count is already significantly elevated. She would also need to have an elevated IgE and Aspergillus. Still presents as well. Therefore follow-up with those results. In the meantime the severity of disease will go ahead and treated with voriconazole in addition to prednisone. The patient will also start a maintenance inhaler with Symbicort to try to minimize the inflammatory changes. The patient follow-up in 4 weeks. If she has any issues prior to that she will call for an earlier assessment. She will talk to her construction company and also will look into a mold abatement company. 05/09/2024 The patient is here for a pulmonary follow up visit. She is feeling much better. Still having an intermittent cough, mild to moderate. Has not been using the symbicort regularly. She did not start the voriconazole in part because she was concerned with the side effects. Her labs demonstrated both an IgE and IgG medicated activity against Aspergillus, therefore, likely ABPA. Along with the Finger in glove findings on CT chest and findings on bronchoscopy. Since she is feeling better we will hold off on the voriconazole for now. Her PFts also were normal. 07/06/2024 the patient is here for a pulmonary follow-up visit. Overall she is doing very good. She is feels like she is back to her baseline. She did not have to take the voriconazole. Now the Symbicort she does not always use it. She does use it as needed though. She is back exercising regularly. The patient has a CT scan scheduled in the coming days. Will follow-up with it. And also she does have an appointment with Allergy. For now she is doing very well. She knows about mold avoidance. We did talk about her into our plans and also now going to the springtime being very careful with planting and working in the garden as there is a lot of mold/fungi that can affect her breathing. Once we can review her CT scan will figure out how we should proceed. For now though she will continue with current respiratory regimen will await her evaluation from allergy. She was concerned for the possibility of a systemic illness such as cystic fibrosis. I did reassure her that I do not believe that that is the case. Will go ahead and wait for her allergy testing if there is any question about cystic fibrosis we can also consider a sweat test. 11/28/2024 the patient is here for pulmonary follow-up visit. Back in September she did become sick with a respiratory illness. She started developing worsening productive cough chest congestion chest tightness and wheezing. She did call the office but we did not have any availability and she was referred to urgent care. The patient however did not go to urgent care. She continue her respiratory medications. She also started using her Acapella valve to help her with chest PT. she was able to clear a lot of mucus out of her lungs. She now continues on the Symbicort. She does feel better. In the meantime she continues to have allergy shots through the allergy office. She does have an elevated IgE and if indeed she becomes more symptomatic or persistently symptomatic she will be a good candidate for Xolair. I did give her some reading material about it. Will follow-up in the fall when usually allergies are worse. But for now she will continue with the Symbicort and CPT. [facility] Medical History (Updated 11/28/24 @ 12:29 by Gilberto Ohara MD) Asthma Annual physical exam Allergies ABPA (allergic bronchopulmonary aspergillosis) Airway obstruction Bronchopneumonia Right foot pain Fracture of fifth toe, left, closed Displaced fracture of fifth metatarsal bone URI (upper respiratory infection) Rib pain on right side COVID-19 virus infection Acute viral bronchitis Colon cancer screening History of Urhbk-Ugxbfwtrw-Ifkjt (WPW) syndrome Osteoarthritis of knees, bilateral Chronic neck pain Breast cancer, left Surgical History H/O cardiac radiofrequency ablation (~2013) History of lumpectomy of left breast H/O: hysterectomy Family History Father Cholangiocarcinoma Atrial fibrillation Mother Myelofibrosis Paternal Uncle Myocardial infarct Social History Housing: House Are you a primary rn patient care to a significant other at home: No Do you presently have visiting nurse or other home services: No Alcohol intake: current Alcohol intake frequency: does not drink Comment: last 2022 Patient Tobacco Use Status: Never used Tobacco Tobacco use type: Cigarette e-Cigarette/Vaping Use: Never Used Second Hand Smoke Exposure: No service: No Current occupational status: employed and retired Cognitive needs: No Hearing needs: No Vision needs: Yes Review of Systems Const Denies fever(s) Eyes Reports no additional complaints ENT Reports nasal congestion Card Denies chest pain and Denies dyspnea on exertion Resp Denies chest congestion, Reports cough, Denies hemoptysis, Denies dyspnea on exertion and Denies wheezing GI Reports no additional complaints Musc Reports no additional complaints Skin/Breast Denies rash Neuro Reports no additional complaints Endo Reports no additional complaints Cal/Lymph Reports no additional complaints Aller/Immun Denies wheezing Physical Exam Vital Signs: Last Vital Signs Pulse 74 11/28/24 09:03 BP 96/56 L 11/28/24 09:03 Pulse Ox 97 11/28/24 09:03 Oxygen Delivery Method Room Air 11/28/24 09:03 BMI result Body Mass Index 23.1 Const General: comfortable HEENT Head: Yes normocephalic Neck Neck: Yes supple Chest Chest palpation & inspection: normal inspection of the chest Resp Effort & Inspection: normal respiratory effort and prolonged expiratory phase Auscultation: no crackles, no rales, no rhonchi and no wheezes Cardio Heart sounds: S1 normal heart sound present and S2 normal heart sound present GI Palpation (GI): Soft to palpation Skin General skin exam: no rashes or lesions noted Extrem General: Yes no clubbing, cyanosis or edema Assessment & Plan Assessment & Plan (1) ABPA (allergic bronchopulmonary aspergillosis): Code(s): B44.81 - Allergic bronchopulmonary aspergillosis Category: Medical (2) Allergies: Code(s): T78.40XA - Allergy, unspecified, initial encounter Category: Medical Qualifiers: Encounter type: initial encounter Qualified Code(s): T78.40XA - Allergy, unspecified, initial encounter (3) Bronchiectasis: Code(s): J47.9 - Bronchiectasis, uncomplicated Category: Medical Qualifiers: Bronchiectasis type: uncomplicated Qualified Code(s): J47.9 - Bronchiectasis, uncomplicated (4) Asthma: Code(s): J45.909 - Unspecified asthma, uncomplicated Category: Medical Qualifiers: Asthma severity: moderate Asthma persistence: persistent Asthma complication type: uncomplicated Qualified Code(s): J45.40 - Moderate persistent asthma, uncomplicated Plan CPT with acapella valve symbicort BID Allergy shots consider Xolair F/U 4-5 months Coding Level of Care Code Est Pt Level 4 (61448) Diagnoses ABPA (allergic bronchopulmonary aspergillosis) B44.81 Allergy, initial encounter T78.40XA Encounter type: initial encounter Bronchiectasis without complication J47.9 Bronchiectasis type: uncomplicated Moderate persistent asthma without complication J45.40 Asthma severity: moderate Asthma persistence: persistent Asthma complication type: uncomplicated Time Spent (min) 17
[2024-11-28 09:03] VITALS: BP 96/56; PULSE 74; O2SAT 97; BMI 23.1
--- OUTSIDE RECORDS SUMMARY | 2024-11-28 09:12 | XMS_ITS | Clinical Summary ---
Author Organization [facility] Address [address] [place] [address] Care Team Providers Care Training And Development Specialist Name Role Phone Tripp Palomino MD Primary Care Provider [phone] Allergies No known active allergies Medications Medication [...] 74 10/30/2022 9:36 AM EDT Temperature 36.7 C (98.1 F) 10/30/2022 9:36 AM EDT Respiratory Rate - - Oxygen Saturation 97% [...] (1 of 2) 2017 Influenza Vaccine (#1) 2025 Pneumococcal Vaccine Aged Out No long er eligible based on patient's age to complete this topic RSV Ped < 20 months Aged Out No longe r eligible based on patient's age to complete this topic Care Teams Training And Development Specialist Relationship Specialty Start Date End Date PoTripp MD [address] [place] [address] [address] [facility] [place] [address] PCP - General Internal Medicine 07/22/20
--- OUTSIDE RECORDS SUMMARY | 2024-11-28 09:12 | XMS_ITS | Clinical Summary ---
Author Organization [facility] Address [address] [place] [address] Phone Care Team Providers Care Technical Operator Name Role Phone Tripp Palomino MD Primary Care Provider Surgical History Surgery Date Site/Laterality Comments BREAST LUMPECTOMY PROCEDURE:BREAST LUMPECTOMY HYSTERECTOMY PROCEDURE:HYSTERECTOMY;COMMENT:partial Medical History Medical History Date Comments Breast cancer (CMS/HCC V24, CMS/HCC V28) DX:Breast cancer ([facility]) Social History Tobacco Use Types Packs/Day Years [...] 2) 2017 Colorectal Cancer Screening: Colonoscopy 04/16/2022 HIV Screening 04/16/2022 Hepatitis C Screening 04/16/2022 Social Influencers of Health Screening 04/16/2022 COVID-19 Vaccine (1 - 2023-2 5 season) 2024 Breast Cancer Screening 02/12/2024 02/12/20, 02/04/2021, 02/02/2020 Depression Screening 05/10/2024 Influenza Vaccine (#1) 2025 HIB Vaccines Aged Out No longer [...] Procedure Name Priority Date/Time Associated Diagnosis Comments [facility] SCREENING DIGITAL Routine 02/11/2022 6:00 PM EDT Encounter for screening mammogram for malignant neoplasm of breast from Last 3 Months or Most Recently Relevant to Health Maintenance Results * NIKI SCREENING DIGITAL (02/11/2022 6:00 PM EDT) Anatomical Region Laterality Modality Mammography 02/11/2022 8:58 AM EDT Narrative 02/11/2022 6:[address] [facility] Diagnostic Imaging Department [address] [place] [id number] Patient: CHIQUITA SANDOVAL Claudia /Age/Sex: 1965 - 56 - F Unit#: [id number] Location/Status: SPDIMAM/REG CLI Mnemonic/Ordering Site: [facility] Ordering Physician: RAD RED MD Niki Screening Digital - 02/11/22913 ADDENDUM BIRADS Category 0, Incomplete: Needs additional imaging evaluation, 3340F Addendum Dictated By: KEEGAN MAYA MD Addendum Esigned by: KEEGAN MAYA MD Dictated: 02/11/2209/28/1753 Signed:02/11/22 1800 ORIGINAL REPORT History: Bilateral breast cancer screening. Past history of lumpectomy for ADH site of microcalcifications. Technique: Digital mammography. Conventional CC and MLO projections with tomosynthesis MLO views and computer aided detection. Comparison made with previous mammograms from [facility] 02/03/2021 dating back to 03/13/2016. Findings: Breast tissue consists of a heterogenous combination of fatty and fibroglandular tissue, potentially obscuring small lesions, category c density (as calculated by Profiteropara software). Left mid breast grouped microcalcifications at superior edge of the nipple line and within the mid superior breast as revealed on MLO projection are much less well seen on CC projection. Calcifications suggested within the posterior medial and posterior mid to lateral breast. Tissue asymmetry posterior lateral left breast as revealed on CC and MLO projection tomography at site of previous lumpectomy. No discrete left breast mass. Stable appearance to right breast tissue asymmetries and non-grouped benign calcification. Impression: 1. Left breast microcalcifications, incompletely characterized at this time. Recommend diagnostic mammography to include spot magnification view 90 degrees mediolateral projection centered over mid to upper breast and magnification view left cc projection centered over the mid to posterior breast. 2. No suspicious interval change of the right. [id number], 71316 A negative mammogram in the face of a clinically suspicious abnormality does not exclude the possibility of malignancy nor alter the indications for biopsy. Note: Patient information entered into a reminder system with a target due date for the next mammogram; PQRI II 7013F Dictating Physician: KEEGAN MAYA MD Electronically Signed by: KEEGAN MAYA MD Dic Date/Time: 02/11/221725 Sign date/Time: 02/11/221738 Procedure Note Keegan Maya MD - 04/29/2022 [facility] Diagnostic Imaging Department [address] [place], [place] [id number] Patient: CHIQUITA SANDOVAL Claudia /Age/Sex: 1965 - 56 - F Unit#: [id number] [facility] Mn[facility]onic/Ordering Site: [facility] Ordering Physician: RAD RED MD Niki [...] detection. Comparison made with previous mammograms from [facility] dating back to 03/13/2016. Findings: Breast tissue consists of a heterogenous combination of fattyand fibroglandular tissue, potentially obscuring small lesions, category cdensity (as calculated by Profiteropara software). Left mid breast grouped microcalcifications at [...] No suspicious interval change of the right. 86637, 99750 A negative mammogram in the face of [...] Recently Relevant to Health Maintenance Care Teams Technical Operator Relationship Specialty Start Date End Date Tripp Palomino MD [address] [place] [address] [address] [facility] [place] [address] PCP - General Internal Medicine 09/18/20
--- OUTSIDE RECORDS SUMMARY | 2024-11-28 09:13 | XMS_ITS | Patient Health Record ---
Author Organization [facility] Address [address] [place] [address] Care Team Providers Care Inspector Advanced Composite Name Role Phone Tripp Palomino Primary Care Provider Unavailabl e Black, Danya Unavailable [phone] Allergies No Known Allergies Reason For Referral No Information Medications Medication SIG (Take, Route, Fr equency, Duration) Notes Start Date End Date Status Turmeric 05/13/2023 Active Calcium Active Vitamin E 400 UNIT 1 tablet Orally Once a day; Duration: 30 day(s) 05/13/2023 Active Vitamin B12 1000 MCG 1 tablet Orally Onc e a day; Duration: 30 day(s) 05/13/2023 Active Vitamin C 1000 MG 1 tablet Orally Once a day; Duration: 30 day(s) 05/13/2023 Active Vitamin D3 05/13/2023 [...] Coverage End Date WEB TPA [address] [address] [place] [address] [id number] RU Lori Angel Self - patient is the insured Medical (General) History Medical History History ICD Code Arthritis Back,Hip,and Knee pain Broken bones CAD (Cholesterol) Cancer covid-19 Headaches/Migraines Heart disease Surgical History Surgery Date(Month/Year) partial hysterectomy 11/2010 lumpectomy, left breast 2016 heart ablation 04/2014
== END 2024-11-28 09:22 | disposition home or self-care (01) ==
LOC: HO.HPS 08:52
PROVIDERS: PCP Internal Medicine; Visit Provider Hospitalist
DX: B44.81 Allergic bronchopulmonary aspergillosis (principal); T78.40XA Allergy, unspecified, initial encounter; J47.9 Bronchiectasis, uncomplicated; J45.40 Moderate persistent asthma, uncomplicated
CPT/HCPCS: 99214

== ENCOUNTER 2025-02-02 13:13 | Outpatient (AMB) | payer OTHER, SELFPAY ==
[2025-02-02 13:20] VITALS: BP 90/62; PULSE 106; O2SAT 96; BMI 23.1
--- NOTE | 2025-02-02 13:20 | MHC.OFFVIS ---
Vital Signs 02/02/25 13:20 Height 5 ft 10 in Weight 160 lb 14.999 oz BMI 23.1 BP 90/62 Blood Pressure Location Lt brachial Position Sitting Pulse 106 H Pulse Source Pulse Oximeter Pulse Oximetry (%) 96 Oxygen Delivery Method Room Air Intake Visit Reasons: chest tightness, prod cough Quality Systems Technician Required: No Accompanied by: Spouse Allergies No Known Allergies Allergy (Verified 02/02/25 13:23) HPI Comments Details: The patient is a 59 year woman with a known history of breast cancer, WPW, in addition to leukopenia who was being worked up for tick-borne diseases. She has been not feeling well now for about a year. She has had a worsening cough at times productive moderate to severe. In addition to that she has had some decreased energy and chest discomfort. Over the summer that she went to a specialist and she was diagnosed with chronic legionnaires in addition to that she was given a diagnosis of tick-borne diseases and she was started on antibiotic regimen including rifampin, azithromycin in addition to doxycycline. She did tolerate the antibiotics but she started developing again worsening cough congestion shortness breath and chest discomfort. Of which point the patient did have imaging studies done. I did personally review a CT scan of the chest that she had which appears to have a blockage of theright sided bronchus intermedius in addition to that significant mucus plugging of the right lower lobe along with airspace disease consistent with a bronchopneumonia. No lymphadenopathy appreciated. No other involvement of disease. On further questioning she denies any hemoptysis. Sometimes though she gets a metallic taste in her mouth. In addition to that she denies any event. Based on the imaging studies in her symptoms I did recommend bronchoscopy at this point to try to delineate the obstruction self and provide her therapeutic and diagnostic procedure. The patient is agreeable at this time. 03/16/2024 the patient is here for a pulmonary follow-up visit. Overall she is doing better after the bronchoscopy. She had severe mucus plugging of the right mainstem bronchus bronchus intermedius and right lower lobe and right middle lobe airways. The biopsies were consistent with eosinophilic infiltration likely allergic. The microbiology was positive for Aspergillus fumigatus. On further history patient apparently is getting the bathroom in reducing it as they found significant amount of black mold likely bringing up the possibility of allergic bronchopulmonary aspergillosis with significant mucus plugs, ?hand and glove ?. She has had some coughing spells since we last spoke with the she is doing a lot better. A 1 point she did feel significant pulling and tugging on the right chest from coughing hurting herself. Now her to take a deep breath. She may have fractured rib. She will continue to monitor. If that does not get better she should come in for an x-ray. In the meantime will have her undergo additional blood work including hypersensitivity panel allergy panel for mold specially for Aspergillus to see if she has evidence of allergic bronchopulmonary aspergillosis (ABPA). Her eosinophil count is already significantly elevated. She would also need to have an elevated IgE and Aspergillus. Still presents as well. Therefore follow-up with those results. In the meantime the severity of disease will go ahead and treated with voriconazole in addition to prednisone. The patient will also start a maintenance inhaler with Symbicort to try to minimize the inflammatory changes. The patient follow-up in 4 weeks. If she has any issues prior to that she will call for an earlier assessment. She will talk to her construction company and also will look into a mold abatement company. 05/09/2024 The patient is here for a pulmonary follow up visit. She is feeling much better. Still having an intermittent cough, mild to moderate. Has not been using the symbicort regularly. She did not start the voriconazole in part because she was concerned with the side effects. Her labs demonstrated both an IgE and IgG medicated activity against Aspergillus, therefore, likely ABPA. Along with the Finger in glove findings on CT chest and findings on bronchoscopy. Since she is feeling better we will hold off on the voriconazole for now. Her PFts also were normal. 07/06/2024 the patient is here for a pulmonary follow-up visit. Overall she is doing very good. She is feels like she is back to her baseline. She did not have to take the voriconazole. Now the Symbicort she does not always use it. She does use it as needed though. She is back exercising regularly. The patient has a CT scan scheduled in the coming days. Will follow-up with it. And also she does have an appointment with Allergy. For now she is doing very well. She knows about mold avoidance. We did talk about her into our plans and also now going to the springtime being very careful with planting and working in the garden as there is a lot of mold/fungi that can affect her breathing. Once we can review her CT scan will figure out how we should proceed. For now though she will continue with current respiratory regimen will await her evaluation from allergy. She was concerned for the possibility of a systemic illness such as cystic fibrosis. I did reassure her that I do not believe that that is the case. Will go ahead and wait for her allergy testing if there is any question about cystic fibrosis we can also consider a sweat test. 11/28/2024 the patient is here for pulmonary follow-up visit. Back in September she did become sick with a respiratory illness. She started developing worsening productive cough chest congestion chest tightness and wheezing. She did call the office but we did not have any availability and she was referred to urgent care. The patient however did not go to urgent care. She continue her respiratory medications. She also started using her Acapella valve to help her with chest PT. she was able to clear a lot of mucus out of her lungs. She now continues on the Symbicort. She does feel better. In the meantime she continues to have allergy shots through the allergy office. She does have an elevated IgE and if indeed she becomes more symptomatic or persistently symptomatic she will be a good candidate for Xolair. I did give her some reading material about it. Will follow-up in the fall when usually allergies are worse. But for now she will continue with the Symbicort and CPT. 02/02/2025 the patient is here for sick visit. The patient has been sick for about a week. She has had some low-grade fevers. She developed a cough. It is croupy in nature. Moderate to severe. Worse at nighttime. The patient did test for COVID x3 in help have been negative. Nobody has been sick in the house. The patient has been using her respiratory medicines only partial improvement. She did call and we did send a prescription for doxycycline but she has not started as of yet. The patient did come in and we did evaluate. She does have some rhonchi on exam and some inspiratory wheezing. Seems to be more related to laryngotracheitis. Likely croup. Will go ahead and start her on a Medrol Vikas in addition to starting the doxycycline. The patient should also use a cough medication. I will send her Bentson aids and she can also use Mucinex DM. She continues to have difficulty she can always call early next week and we can do additional imaging studies blood work and further assess specially with a history of ABPA. [facility] Medical History (Updated 02/04/25 @ 20:22 by Gilberto Ohara MD) Asthma Annual physical exam Allergies ABPA (allergic bronchopulmonary aspergillosis) Airway obstruction Bronchopneumonia Right foot pain Fracture of fifth toe, left, closed Displaced fracture of fifth metatarsal bone URI (upper respiratory infection) Rib pain on right side COVID-19 virus infection Acute viral bronchitis Colon cancer screening History of Jqudj-Gwteowlbc-Qcgti (WPW) syndrome Osteoarthritis of knees, bilateral Chronic neck pain Breast cancer, left Surgical History H/O cardiac radiofrequency ablation (~2013) History of lumpectomy of left breast H/O: hysterectomy Family History Father Cholangiocarcinoma Atrial fibrillation Mother Myelofibrosis Paternal Uncle Myocardial infarct Social History Housing: House Are you a primary primary care sales representative to a significant other at home: No Do you presently have visiting nurse or other home services: No Alcohol intake: current Alcohol intake frequency: does not drink Comment: last 2022 Patient Tobacco Use Status: Never used Tobacco Tobacco use type: Cigarette e-Cigarette/Vaping Use: Never Used Second Hand Smoke Exposure: No service: No Current occupational status: employed and retired Cognitive needs: No Hearing needs: No Vision needs: Yes Review of Systems Const Reports fatigue and Denies fever(s) Eyes Reports no additional complaints ENT Reports nasal congestion Card Denies chest pain and Denies dyspnea on exertion Resp Reports chest congestion, Reports cough, Denies hemoptysis, Denies dyspnea on exertion and Reports wheezing GI Reports no additional complaints Musc Reports no additional complaints Skin/Breast Denies rash Neuro Reports no additional complaints Endo Reports no additional complaints and Reports fatigue Cal/Lymph Reports no additional complaints Aller/Immun Reports wheezing Physical Exam Vital Signs: Last Vital Signs Pulse 106 H 02/02/25 13:20 BP 90/62 02/02/25 13:20 Pulse Ox 96 02/02/25 13:20 Oxygen Delivery Method Room Air 02/02/25 13:20 BMI result Body Mass Index 23.1 Const General: comfortable HEENT Head: Yes normocephalic Neck Neck: Yes supple Chest Chest palpation & inspection: normal inspection of the chest Resp Effort & Inspection: normal respiratory effort and prolonged expiratory phase Auscultation: no crackles, no rales, no rhonchi and wheezes Cardio Heart sounds: S1 normal heart sound present and S2 normal heart sound present GI Palpation (GI): Soft to palpation Skin General skin exam: no rashes or lesions noted Extrem General: Yes no clubbing, cyanosis or edema Assessment & Plan Assessment & Plan (1) Laryngotracheobronchitis: Code(s): J40 - Bronchitis, not specified as acute or chronic Category: Medical (2) Asthma: Code(s): J45.909 - Unspecified asthma, uncomplicated Category: Medical Qualifiers: Asthma severity: moderate Asthma persistence: persistent Asthma complication type: with acute exacerbation Qualified Code(s): J45.41 - Moderate persistent asthma with (acute) exacerbation (3) ABPA (allergic bronchopulmonary aspergillosis): Code(s): B44.81 - Allergic bronchopulmonary aspergillosis Category: Medical (4) Allergies: Code(s): T78.40XA - Allergy, unspecified, initial encounter Category: Medical Qualifiers: Encounter type: initial encounter Qualified Code(s): T78.40XA - Allergy, unspecified, initial encounter (5) Bronchiectasis: Code(s): J47.9 - Bronchiectasis, uncomplicated Category: Medical Qualifiers: Bronchiectasis type: uncomplicated Qualified Code(s): J47.9 - Bronchiectasis, uncomplicated Plan start Doxycycline start Medrol pk start benzonates call if no better in 2-3 days CPT with acapella valve symbicort BID Allergy shots consider Xolair F/U 4-5 months Medications: New benzonatate 200 mg PO BID PRN 60 caps 0RF cough 30 days methylprednisolone (Medrol (Vikas)) PO PER PKG DIR 21 ea 0RF 6 days Coding Level of Care Code Est Pt Level 4 (91150) Diagnoses Laryngotracheobronchitis J40 Moderate persistent asthma with acute exacerbation J45.41 Asthma severity: moderate Asthma persistence: persistent Asthma complication type: with acute exacerbation ABPA (allergic bronchopulmonary aspergillosis) B44.81 Allergy, initial encounter T78.40XA Encounter type: initial encounter Bronchiectasis without complication J47.9 Bronchiectasis type: uncomplicated Time Spent (min) 16
--- OUTSIDE RECORDS SUMMARY | 2025-02-02 14:32 | XMS_ITS | Patient Health Record ---
Author Organization [facility] Address [address] [place] [address] Care Team Providers Care Artificial Fly Tier Name Role Phone Tripp Palomino Primary Care Provider Unavailabl e Black, Danya Unavailable [phone] Allergies No Known Allergies Reason For Referral [...] Coverage End Date WEB TPA [address] [address] [place] [address] [id number] RU Lori Angel Self - patient is the insured Medical (General) History Medical History History ICD Code Arthritis Back,Hip,and Knee pain Broken bones CAD (Cholesterol) Cancer covid-19 Headaches/Migraines Heart disease Surgical History Surgery Date(Month/Year) partial hysterectomy 11/2010 lumpectomy, left breast 2016 heart ablation 04/2014
--- OUTSIDE RECORDS SUMMARY | 2025-02-02 14:32 | XMS_ITS | Clinical Summary ---
Author Organization [facility] Address [address] [place] [address] Phone Care Team Providers Care Radar Scientist Name Role Phone Tripp Palomino MD Primary Care Provider [phone] Surgical History Surgery Date Site/Laterality Comments BREAST [...] 04/16/2022 Social Influencers of Health Screening 04/16/2022 Breast Cancer Screening 02/12/2024 02/12/20, 02/04/2021, 02/02/2020 Depression Screening 05/10/2024 COVID-19 Vaccine ( - 2023-2 5 season) 2025 Influenza Vaccine (#1) 2025 HIB Vaccines Aged [...] Procedure Name Priority Date/Time Associated Diagnosis Comments [facility] SCREENING DIGITAL Routine 02/11/2022 6:00 PM EDT Encounter for screening mammogram for malignant neoplasm of breast from Last 3 Months or Most Recently Relevant to Health Maintenance Results * NIKI SCREENING DIGITAL (02/11/2022 6:00 PM EDT) Anatomical Region Laterality Modality Mammography 02/11/2022 8:58 AM EDT Narrative 02/11/2022 6:00 PM EDT [facility] Diagnostic Imaging Department [address] [place] [id number] Patient: CHIQUITA SANDOVAL Claudia /Age/Sex: 1965 - 56 - F Unit#: [id number] Location/Status: SPDIMAM/REG CLI Mnemonic/Ordering Site: [facility] Ordering Physician: RAD RED MD Niki [...] detection. Comparison made with previous mammograms from [facility] 02/03/2021 dating back to 03/13/2016. Findings: Breast tissue consists of a heterogenous combination of fatty and fibroglandular tissue, potentially obscuring small lesions, category c density (as calculated by Protein Barpara software). Left mid breast grouped microcalcifications at [...] No suspicious interval change of the right. 585[address], [address]63 A negative mammogram in the face of a clinically suspicious abnormality does not exclude the possibility of malignancy nor alter the indications for biopsy. Note: Patient information entered into a reminder system with a target due date for the next mammogram; PQRI II 7030F Dictating Physician: KEEGAN MAYA MD Electronically Signed by: KEEGAN MAYA MD Dic Date/Time: 02/11/221725 Sign date/Time: 02/11/221738 Procedure Note Keegan Maya MD - 04/29/2022 [facility] Diagnostic Imaging Department [address] [place], [place] [id number] Patient: CHIQUITA SANDOVAL Claudia /Age/Sex: 1965 - 56 - F Unit#: [id number] [facility] Mn[facility]onic/Ordering Site: [facility] Ordering Physician: RAD RED MD Niki [...] detection. Comparison made with previous mammograms from [facility] dating back to 03/13/2016. Findings: Breast tissue consists of a heterogenous combination of fattyand fibroglandular tissue, potentially obscuring small lesions, category cdensity (as calculated by Protein Barpara software). Left mid breast grouped microcalcifications at [...] No suspicious interval change of the right. 696[address], 42846 A negative mammogram in the face of [...] Recently Relevant to Health Maintenance Care Teams Radar Scientist Relationship Specialty Start Date End Date Tripp Palomino MD [address] [place] [address] [address] [facility] [place] [address] PCP - General Internal Medicine 09/18/20
--- OUTSIDE RECORDS SUMMARY | 2025-02-02 14:32 | XMS_ITS | Continuity of Care Document ---
Author Organization [facility] Address [address] [place] [address] Insurance Providers Payer Plan Claims Address Claims Phone Policy Number Group Number Relation Employer Guarantor Name Guarantor Guarantor Address Guarantor Phone WEB T[employer] [address] [address], [place] [address] tel:[phone] [id number] Self Lori Angel 1965 [address] [place] [facility] [place] [address] [employer] [address], [place] [address] tel:[phone] Self Lori Angel 1965 [address] [place] [facility] [place] [address] Problems Condition ICD9 code ICD10 code SNOMED code Start Date End Date S tatus Encounter for screening for other metabolic disorders Z13.228 Results No Results Allergies, adverse reactions, alerts No known allergies and adverse reactions Medications No administered medications reported Vital Signs No vital signs reported Social History No smoking Hx information available
--- OUTSIDE RECORDS SUMMARY | 2025-02-02 14:32 | XMS_ITS | Continuity of Care Document ---
Author Organization [facility] Address [address] [place] [address] Insurance Providers Payer Plan Claims Address Claims Phone Policy Number Group Number Relation Employer Guarantor Name Guarantor Guarantor Address Guarantor Phone WEB TPA [address] [address], [place] [address] tel:[phone] [id number] Self Lori Angel 1965 [address] [place] [address] [employer] [address], [place] [address] tel:[phone] Self Lori Angel 1965 [address] [place] [address] Problems Condition ICD9 code ICD10 code SNOMED code Start Date End Date S tatus Encounter for screening for other metabolic disorders Z13.228 Results No Results Allergies, adverse reactions, alerts No known allergies and adverse reactions Medications No administered medications reported Vital Signs No vital signs reported Social History No smoking Hx information available
--- OUTSIDE RECORDS SUMMARY | 2025-02-02 14:32 | XMS_ITS | Clinical Summary ---
Author Organization [facility] Address [address] [place] [address] Care Team Providers Care Hydraulic Lift Driver Name Role Phone Tripp Palomino MD Primary Care Provider [phone] Allergies No known active allergies Medications Medication [...] age to complete this topic Care Teams Hydraulic Lift Driver Relationship Specialty Start Date End Date PoTripp MD [address] [place] [address] [address] [facility] [place] [address] PCP - General Internal Medicine 07/22/20
== END 2025-02-02 13:40 | disposition home or self-care (01) ==
LOC: HO.HPS 13:14
PROVIDERS: PCP Internal Medicine; Visit Provider Hospitalist
DX: J40 Bronchitis, not specified as acute or chronic (principal); J45.41 Moderate persistent asthma with (acute) exacerbation; B44.81 Allergic bronchopulmonary aspergillosis; T78.40XA Allergy, unspecified, initial encounter; J47.9 Bronchiectasis, uncomplicated
CPT/HCPCS: 99214

== ENCOUNTER 2025-03-06 09:58 | Outpatient (AMB) | payer OTHER, SELFPAY ==
[2025-03-06 10:01] VITALS: BP 107/71; PULSE 88; BMI 23.5
--- NOTE | 2025-03-06 10:01 | A.OFFVIS_ITS ---
Vital Signs 03/06/25 10:01 Height 5 ft 10 in Weight 163 lb 9.328 oz BMI 23.5 BP 107/71 Blood Pressure Location Lt brachial Position Sitting Pulse 88 Intake Visit Reasons: CIC Bloating Intake Note: Lori presents to in office follow up or CIC and abd bloating. CC: Patient states that she was on doxycycline and prednisone and she feels like that usually messes up her stomach. She reports that 2 weeks after finishing the meds she had a day were BMs were a bright orange in color. Enrollment Processor Required: No Accompanied by: Self / Same As Patient Allergies No Known Allergies Allergy (Verified 03/06/25 10:11) HPI HPI CIC Bloating: Details: Assessment & Plan (1) GERD (gastroesophageal reflux disease): Code(s): K21.9 - Gastro-esophageal reflux disease without esophagitis Category: Medical Qualifiers: Esophagitis presence: without esophagitis Qualified Code(s): K21.9 - Gastro-esophageal reflux disease without esophagitis (2) Abdominal bloating: Code(s): R14.0 - Abdominal distension (gaseous) Category: Medical Plan She has had a LOT of health discoveries!! She went to an ID provider who thought she had a lyme variant and put her on heavy abx. 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 They had a re model and now she is feeling much better!!! HOwever she had a bad bout of Norovirus and now she has some CIC and bloating. She drinks a lot of water, exercises and eats yogurt and konmucha and has added minerva seeds. We will wait and watch. ROV 3 mos. [facility] Medical History (Updated 03/06/25 @ 10:27 by TRAMAINE Ruiz) Chest pain Breast cancer, left Bronchopneumonia Asthma Annual physical exam Allergies ABPA (allergic bronchopulmonary aspergillosis) Airway obstruction Right foot pain Fracture of fifth toe, left, closed Displaced fracture of fifth metatarsal bone URI (upper respiratory infection) Rib pain on right side COVID-19 virus infection Acute viral bronchitis Colon cancer screening History of Ntyzn-Wzxqvyhtb-Vhjnu (WPW) syndrome Osteoarthritis of knees, bilateral Chronic neck pain Surgical History (Updated 03/06/25 @ 10:58 by TRAMAINE Ruiz) H/O colonoscopy H/O cardiac radiofrequency ablation (~2013) History of lumpectomy of left breast H/O: hysterectomy Family History Father Cholangiocarcinoma Atrial fibrillation Mother Myelofibrosis Paternal Uncle Myocardial infarct Social History Housing: House Are you a primary post acute care nurse practitioner to a significant other at home: No Do you presently have visiting nurse or other home services: No Alcohol intake: current Alcohol intake frequency: does not drink Comment: last 2022 Patient Tobacco Use Status: Never used Tobacco Tobacco use type: Cigarette e-Cigarette/Vaping Use: Never Used Second Hand Smoke Exposure: No service: No Current occupational status: employed and retired Cognitive needs: No Hearing needs: No Vision needs: Yes Review of Systems Const Denies fatigue, Denies fever(s), Denies night sweats, Denies poor appetite and Denies weight loss ENT Reports Normal hearing present, Denies dental pain, Denies dysphagia, Denies hearing loss, Denies mouth pain, Denies odynophagia, Denies throat swelling, Denies tongue swelling and Reports other (Dentition adequate) Card Reports no additional complaints Resp Reports no additional complaints GI Details: Denies abdominal pain, Denies melena, Denies bloating, Denies hematochezia, Reports constipation, Reports GI cramping, Denies dysphagia, Denies excessive flatus, Denies early satiety, Reports heartburn, Reports diarrhea, Denies nausea, Denies odynophagia, Denies vomiting and Denies hematemesis Skin/Breast Denies pruritus, Denies lesions, Denies rash and Denies jaundice Neuro Reports Normal hearing present and Denies Abnormal speech present Endo Denies fatigue Aller/Immun Denies throat swelling and Denies tongue swelling Physical Exam Vital Signs: Last Vital Signs Pulse 88 03/06/25 10:01 BP 107/71 03/06/25 10:01 BMI result Body Mass Index 23.5 Const General: cooperative, no acute distress, well developed and well groomed Nutritional Appearance: average body habitus and well nourished Orientation/consciousness: oriented to person, oriented to place and oriented to time Limitations: No language barrier HEENT Head: Yes normocephalic and Yes atraumatic Eyes General: appearance normal, both eyes and all related structures Pupils: Equal, round and reactive pupils present Neck Neck: Yes normal visual inspection and Yes no lymphadenopathy Thyroid: Thyroid normal Resp Effort & Inspection: normal respiratory effort and able to speak in complete sentences Auscultation: clear to auscultation bilaterally Cardio Rate: regular rate Rhythm: regular rhythm Heart sounds: Normal, physiologic split S2 sound present Peripheral pulses: radial pulses present and posterior tibial pulses present GI Inspection: No distended and No Abdominal panniculus present Palpation (GI): Soft to palpation, nontender, no guarding, not rigid and No hepatosplenomegaly present Percussion: Yes normal to percussion Auscultation: normal bowel sounds Rectal Exam - Female: deferred Skin General skin exam: no rashes or lesions noted, turgor normal, skin not dry, no jaundice, No spider nevi and no striae Rashes: no rashes Nails: normal Neuro General: oriented to person, oriented to place and oriented to time Cranial nerves: Yes Equal, round and reactive pupils present and Yes Normal hearing present Speech: No Abnormal speech present Extrem General: Yes normal to inspection, No clubbing, No cyanosis and No edema Psych Appearance: grossly normal and well kempt Mental Status: mental status grossly normal Speech and movement: Normal speech and movement present Affect: normal affect Attitude: cooperative Thought process: Normal thought process present and not confabulating Thought content: Normal thought content present Insight: Good insight present (Psych) Judgement: Good judgement present (Psych) Assessment & Plan Assessment & Plan (1) GERD (gastroesophageal reflux disease): Code(s): K21.9 - Gastro-esophageal reflux disease without esophagitis Category: Medical Qualifiers: Esophagitis presence: without esophagitis Qualified Code(s): K21.9 - Gastro-esophageal reflux disease without esophagitis (2) Abdominal bloating: Code(s): R14.0 - Abdominal distension (gaseous) Category: Medical Plan - The patient is a 59-year-old female presenting with gastrointestinal symptoms post-medication. - Reports of bright orange stools began approximately two weeks after a treatment regimen of doxycycline and prednisone, aligning with the conclusion of the antibiotics course. - A colonoscopy was performed in 2020, and the patient mentioned fluctuations in bowel movement regularity, with alternating constipation and normal stool consistency during and after medication use. - She has WPW syndrome and chronic aspergillosis, experiencing increased upper respiratory congestion typically during the fall. - Patient notes lifestyle changes possibly relating to menopause, including bloa ting and other generalized symptoms. The patient prefers to try to treat herself with diet and natural methods. She wants to return in 6 months per her request. Coding Level of Care Code Est Pt Level 3 (04703) Diagnoses Gastroesophageal reflux disease without esophagitis K21.9 Esophagitis presence: without esophagitis Abdominal bloating R14.0
--- OUTSIDE RECORDS SUMMARY | 2025-03-06 11:52 | XMS_ITS | Patient Health Record ---
Author Organization [facility] Address [address] [place] [address] Care Team Providers Care Extruding Press Adjuster Name Role Phone Tripp Palomino Primary Care Provider Unavailabl e Black, Danya Unavailable [phone] Allergies No Known Allergies Reason For Referral [...] Coverage End Date WEB TPA [address] [address] [place] [address] [id number] RU Lori Angel Self - patient is the insured Medical (General) History Medical History History ICD Code Arthritis Back,Hip,and Knee pain Broken bones CAD (Cholesterol) Cancer covid-19 Headaches/Migraines Heart disease Surgical History Surgery Date(Month/Year) partial hysterectomy 11/2010 lumpectomy, left breast 2016 heart ablation 04/2014
--- OUTSIDE RECORDS SUMMARY | 2025-03-06 11:52 | XMS_ITS | Clinical Summary ---
Author Organization [facility] Address [address] [place] [address] Phone Care Team Providers Care Kitchen Runner Name Role Phone Tripp Palomino MD Primary Care Provider [phone] Surgical History Surgery Date Site/Laterality Comments BREAST LUMPECTOMY PROCEDURE:BREAST LUMPECTOMY HYSTERECTOMY PROCEDURE:HYSTERECTOMY;COMMENT:partial Medical History Medical History Date Comments Breast cancer (CMS/HCC V24, CMS/HCC V28) DX:Breast cancer ([facility]) Social History Tobacco Use Types Packs/Day Years [...] Health Maintenance Due Date Last Done Comments Colorectal Cancer Screening: Colonoscopy 1967 DTaP,Tdap,and Td Vaccines (1 - Tdap) 1986 Hepatitis B Vaccines (1 of 3 - 19+ 3-dose series) 1986 Cervical Cancer Screening: P ap Smear 1988 Pneumococcal Vaccine: 50+ Years (1 of 1 - PCV) 2017 Zoster Vaccines (1 of 2) 2017 HIV Screening 04/16/2022 Hepatitis C Screening 04/16/2022 Social Influencers of Health Screening 04/16/2022 Breast Cancer Screening 02/12/2024 02/12/20, 02/04/2021, 02/02/2020 Depression Screening 05/10/2024 COVID-19 Vaccine (1 - 2023-2 5 season) 2025 Influenza Vaccine (#1) 2025 RSV Immunization Adult Patients (1 - 1-dose 75+ series) 2042 HIB Vaccines Aged Out No longer eligi [...] AM EDT Narrative 02/11/2022 6:00 PM EDT [facility] Diagnostic Imaging Department [address] [place] [id number] Patient: CHIQUITA SANDOVAL Claudia SantosB./Age/Sex: 1965 - 56 - F Unit#: [id number] Location/Status: SPDIMAM/REG CLI Mnemonic/Ordering Site: [facility] Ordering Physician: RAD RED MD Niki Screening Digital - 02/11/22913 ADDENDUM BIRADS Category 0, Incomplete: Needs additional imaging evaluation, 3340F Addendum Dictated By: KEEGAN MYAA MD Addendum Esigned by: KEEGAN MAYA MD Dictated: 02/11/2209/28/1753 Signed:02/11/22 1800 ORIGINAL REPORT History: Bilateral breast cancer screening. Past history of lumpectomy for ADH site of microcalcifications. Technique: Digital mammography. Conventional CC and MLO projections with tomosynthesis MLO views and computer aided detection. Comparison made with previous mammograms from [facility] 02/03/2021 dating back to 03/13/2016. Findings: Breast tissue consists of a heterogenous combination of fatty and fibroglandular tissue, potentially obscuring small lesions, category c density (as calculated by [employer] software). Left mid breast grouped microcalcifications at [...] No suspicious interval change of the right. 36667, 10336 A negative mammogram in the face of a clinically suspicious abnormality does not exclude the possibility of malignancy nor alter the indications for biopsy. Note: Patient information entered into a reminder system with a target due date for the next mammogram; PQRI II 7026F Dictating Physician: KEEGAN MAYA MD Electronically Signed by: KEEGAN MAYA MD Dic Date/Time: 02/11/221725 Sign date/Time: 02/11/221738 Procedure Note Keegan Maya MD - 04/29/2022 [facility] Diagnostic Imaging Department [address] [place] [address] Patient: CHIQUITA SANDOVAL Claudia SantosB./Age/Sex: 1965 - 56 - F Unit#: [id number] Location/Status: [facility]/REG CLI Mnemonic/Ordering Site: [facility] Ordering Physician: RAD RED MD Niki Screening Digital - 02/11/22913 ADDENDUM BIRADS Category 0, Incomplete: Needs additional imaging evaluation,3341F Addendum Dictated By: KEEGAN MAYA MD Addendum Esigned by: KEEGAN MAYA MD Dictated: 02/11/2209/28/1753 Signed:02/11/22 1800 ORIGINAL REPORT History: Bilateral breast cancer screening. Past history of lumpectomyfor ADH site of microcalcifications. Technique: Digital mammography. Conventional CC and MLO projections with tomosynthesis MLO views and computer aided detection. Comparison made with previous mammograms from [facility]21 dating back to 03/13/2016. Findings: Breast tissue consists of a heterogenous combination of fattyand fibroglandular tissue, potentially obscuring small lesions, category cdensity (as calculated by [employer] software). Left mid breast grouped microcalcifications at [...] No suspicious interval change of the right. 52567, 24086 A negative mammogram in the face of [...] Recently Relevant to Health Maintenance Care Teams Kitchen Runner Relationship Specialty Start Date End Date Tripp Palomino MD [address] [place] [address] [address] [facility] [place] [id number] PCP - General Internal Medicine 09/18/20
--- OUTSIDE RECORDS SUMMARY | 2025-03-06 11:52 | XMS_ITS | Clinical Summary ---
Author Organization [facility] Address [address] [place] [address] Care Team Providers Care Fish Farm Laborer Name Role Phone Tripp Palomino MD Primary Care Provider [phone] Allergies No known active allergies Medications Medication [...] age to complete this topic Care Teams Fish Farm Laborer Relationship Specialty Start Date End Date PoTripp MD [address] [place] [address] [address] [facility] [place] [address] PCP - General Internal Medicine 07/22/20
== END 2025-03-06 11:08 | disposition home or self-care (01) ==
LOC: HO.HGI 10:00
PROVIDERS: PCP Internal Medicine; Visit Provider Nurse Practitioner
DX: K21.9 Gastro-esophageal reflux disease without esophagitis (principal); R14.0 Abdominal distension (gaseous)
CPT/HCPCS: 99213

== ENCOUNTER 2025-03-26 09:41 | Outpatient (AMB) | payer OTHER, SELFPAY ==
[2025-03-26 09:45] VITALS: BP 100/54; PULSE 86; O2SAT 96; BMI 24.0
--- NOTE | 2025-03-26 09:45 | MHC.OFFVIS ---
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 She has been not feeling well now for about a year. She has had a worsening cough at times productive moderate to severe. In addition to that she has had some decreased energy and chest discomfort. Over the summer that she went to a specialist and she was diagnosed with chronic legionnaires in addition to that she was given a diagnosis of tick-borne diseases and she was started on antibiotic regimen including rifampin, azithromycin in addition to doxycycline. She did tolerate the antibiotics but she started developing again worsening cough congestion shortness breath and chest discomfort. Of which point the patient did have imaging studies done. I did personally review a CT scan of the chest that she had which appears to have a blockage of theright sided bronchus intermedius in addition to that significant mucus plugging of the right lower lobe along with airspace disease consistent with a bronchopneumonia. No lymphadenopathy appreciated. No other involvement of disease. On further questioning she denies any hemoptysis. Sometimes though she gets a metallic taste in her mouth. In addition to that she denies any event. Based on the imaging studies in her symptoms I did recommend bronchoscopy at this point to try to delineate the obstruction self and provide her therapeutic and diagnostic procedure. The patient is agreeable at this time. 03/16/2024 the patient is here for a pulmonary follow-up visit. Overall she is doing better after the bronchoscopy. She had severe mucus plugging of the right mainstem bronchus bronchus intermedius and right lower lobe and right middle lobe airways. The biopsies were consistent with eosinophilic infiltration likely allergic. The microbiology was positive for Aspergillus fumigatus. On further history patient apparently is getting the bathroom in reducing it as they found significant amount of black mold likely bringing up the possibility of allergic bronchopulmonary aspergillosis with significant mucus plugs, ?hand and glove ?. She has had some coughing spells since we last spoke with the she is doing a lot better. A 1 point she did feel significant pulling and tugging on the right chest from coughing hurting herself. Now her to take a deep breath. She may have fractured rib. She will continue to monitor. If that does not get better she should come in for an x-ray. In the meantime will have her undergo additional blood work including hypersensitivity panel allergy panel for mold specially for Aspergillus to see if she has evidence of allergic bronchopulmonary aspergillosis (ABPA). Her eosinophil count is already significantly elevated. She would also need to have an elevated IgE and Aspergillus. Still presents as well. Therefore follow-up with those results. In the meantime the severity of disease will go ahead and treated with voriconazole in addition to prednisone. The patient will also start a maintenance inhaler with Symbicort to try to minimize the inflammatory changes. The patient follow-up in 4 weeks. If she has any issues prior to that she will call for an earlier assessment. She will talk to her construction company and also will look into a mold abatement company. 05/09/2024 The patient is here for a pulmonary follow up visit. She is feeling much better. Still having an intermittent cough, mild to moderate. Has not been using the symbicort regularly. She did not start the voriconazole in part because she was concerned with the side effects. Her labs demonstrated both an IgE and IgG medicated activity against Aspergillus, therefore, likely ABPA. Along with the Finger in glove findings on CT chest and findings on bronchoscopy. Since she is feeling better we will hold off on the voriconazole for now. Her PFts also were normal. 07/06/2024 the patient is here for a pulmonary follow-up visit. Overall she is doing very good. She is feels like she is back to her baseline. She did not have to take the voriconazole. Now the Symbicort she does not always use it. She does use it as needed though. She is back exercising regularly. The patient has a CT scan scheduled in the coming days. Will follow-up with it. And also she does have an appointment with Allergy. For now she is doing very well. She knows about mold avoidance. We did talk about her into our plans and also now going to the springtime being very careful with planting and working in the garden as there is a lot of mold/fungi that can affect her breathing. Once we can review her CT scan will figure out how we should proceed. For now though she will continue with current respiratory regimen will await her evaluation from allergy. She was concerned for the possibility of a systemic illness such as cystic fibrosis. I did reassure her that I do not believe that that is the case. Will go ahead and wait for her allergy testing if there is any question about cystic fibrosis we can also consider a sweat test. 11/28/2024 the patient is here for pulmonary follow-up visit. Back in September she did become sick with a respiratory illness. She started developing worsening productive cough chest congestion chest tightness and wheezing. She did call the office but we did not have any availability and she was referred to urgent care. The patient however did not go to urgent care. She continue her respiratory medications. She also started using her Acapella valve to help her with chest PT. she was able to clear a lot of mucus out of her lungs. She now continues on the Symbicort. She does feel better. In the meantime she continues to have allergy shots through the allergy office. She does have an elevated IgE and if indeed she becomes more symptomatic or persistently symptomatic she will be a good candidate for Xolair. I did give her some reading material about it. Will follow-up in the fall when usually allergies are worse. But for now she will continue with the Symbicort and CPT. 02/02/2025 the patient is here for sick visit. The patient has been sick for about a week. She has had some low-grade fevers. She developed a cough. It is croupy in nature. Moderate to severe. Worse at nighttime. The patient did test for COVID x3 in help have been negative. Nobody has been sick in the house. The patient has been using her respiratory medicines only partial improvement. She did call and we did send a prescription for doxycycline but she has not started as of yet. The patient did come in and we did evaluate. She does have some rhonchi on exam and some inspiratory wheezing. Seems to be more related to laryngotracheitis. Likely croup. Will go ahead and start her on a Medrol Vikas in addition to starting the doxycycline. The patient should also use a cough medication. I will send her Bentson aids and she can also use Mucinex DM. She continues to have difficulty she can always call early next week and we can do additional imaging studies blood work and further assess specially with a history of ABPA. 03/26/2025 the patient is here for pulmonary follow-up visit. Overall she is doing better. She did feel better after a month of dealing with that respiratory illness. She is back to her baseline. She is going back to the gym and she is exercising regularly. 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 She is currently not on Xolair. But clinically she is doing good her respiratory exam is reassuring so at this point she is okay off the biologic therapy. Will continue to reassess. The meantime the patient did have a CT scan back in July of 2024 which I personally reviewed demonstrating multiple pulmonary nodules largest 1 measuring about 5 mm in size. Will plan to repeat the CAT scan sometime in July or August and will follow-up after that to review. She will continue with the current respiratory therapy as prescribed and if any issues arise she can always call for further recommendations. [facility] Medical History (Updated 03/26/25 @ 19:12 by Gilberto Ohara MD) Pulmonary nodules Chest pain Breast cancer, left Bronchopneumonia Asthma Annual physical exam Allergies ABPA (allergic bronchopulmonary aspergillosis) Airway obstruction Right foot pain Fracture of fifth toe, left, closed Displaced fracture of fifth metatarsal bone URI (upper respiratory infection) Rib pain on right side COVID-19 virus infection Acute viral bronchitis Colon cancer screening History of Fnuhs-Hnmrefjwm-Klply (WPW) syndrome Osteoarthritis of knees, bilateral Chronic neck pain Surgical History (Updated 03/06/25 @ 10:58 by TRAMAINE Ruiz) H/O colonoscopy H/O cardiac radiofrequency ablation (~2013) History of lumpectomy of left breast H/O: hysterectomy Family History Father Cholangiocarcinoma Atrial fibrillation Mother Myelofibrosis Paternal Uncle Myocardial infarct Social History Housing: House Are you a primary school childcare attendant to a significant other at home: No Do you presently have visiting nurse or other home services: No Alcohol intake: current Alcohol intake frequency: does not drink Comment: last 2022 Patient Tobacco Use Status: Never used Tobacco Tobacco use type: Cigarette e-Cigarette/Vaping Use: Never Used Second Hand Smoke Exposure: No service: No Current occupational status: employed and retired Cognitive needs: No Hearing needs: No Vision needs: Yes Review of Systems Const Reports fatigue and Denies fever(s) Eyes Reports no additional complaints ENT Reports nasal congestion Card Denies chest pain and Denies dyspnea on exertion Resp Reports cough, Denies hemoptysis, Denies dyspnea on exertion and Denies wheezing GI Reports no additional complaints Musc Reports no additional complaints Skin/Breast Denies rash Neuro Reports no additional complaints Endo Reports no additional complaints and Reports fatigue Cal/Lymph Reports no additional complaints Aller/Immun Denies wheezing Physical Exam Vital Signs: Last Vital Signs Pulse 86 03/26/25 09:45 BP 100/54 L 03/26/25 09:45 Pulse Ox 96 03/26/25 09:45 BMI result Body Mass Index 24.0 Const General: comfortable HEENT Head: Yes normocephalic Neck Neck: Yes supple Chest Chest palpation & inspection: normal inspection of the chest Resp Effort & Inspection: normal respiratory effort Auscultation: clear to auscultation bilaterally, no crackles, no rales and no rhonchi Cardio Heart sounds: S1 normal heart sound present and S2 normal heart sound present GI Palpation (GI): Soft to palpation Skin General skin exam: no rashes or lesions noted Extrem General: Yes no clubbing, cyanosis or edema Assessment & Plan Assessment & Plan (1) Asthma: Code(s): J45.909 - Unspecified asthma, uncomplicated Category: Medical Qualifiers: Asthma complication type: with acute exacerbation Asthma persistence: persistent Asthma severity: moderate Qualified Code(s): J45.41 - Moderate persistent asthma with (acute) exacerbation (2) ABPA (allergic bronchopulmonary aspergillosis): Code(s): B44.81 - Allergic bronchopulmonary aspergillosis Category: Medical (3) Allergies: Code(s): T78.40XA - Allergy, unspecified, initial encounter Category: Medical Qualifiers: Encounter type: initial encounter Qualified Code(s): T78.40XA - Allergy, unspecified, initial encounter (4) Bronchiectasis: Code(s): J47.9 - Bronchiectasis, uncomplicated Category: Medical Qualifiers: Bronchiectasis type: uncomplicated Qualified Code(s): J47.9 - Bronchiectasis, uncomplicated (5) Pulmonary nodules: Code(s): R91.8 - Other nonspecific abnormal finding of lung field Category: Medical Plan CPT with acapella valve symbicort BID Allergy shots consider Xolair CT chest 08/2025 F/U 6-8 months Orders: Orders CT chest wo IV con 08/08/25 R91.8 - Other nonspecific abnormal finding of lung field Coding Level of Care Code Est Pt Level 4 (86883) Complex EM visit Add On G2211 Diagnoses Moderate persistent asthma with acute exacerbation J45.41 Asthma complication type: with acute exacerbation Asthma persistence: persistent Asthma severity: moderate ABPA (allergic bronchopulmonary aspergillosis) B44.81 Allergy, initial encounter T78.40XA Encounter type: initial encounter Bronchiectasis without complication J47.9 Bronchiectasis type: uncomplicated Pulmonary nodules R91.8 Time Spent (min) 16
== END 2025-03-26 10:14 | disposition home or self-care (01) ==
LOC: HO.HPS 09:42
PROVIDERS: PCP Internal Medicine; Visit Provider Hospitalist
DX: J45.41 Moderate persistent asthma with (acute) exacerbation (principal); B44.81 Allergic bronchopulmonary aspergillosis; T78.40XA Allergy, unspecified, initial encounter; J47.9 Bronchiectasis, uncomplicated; R91.8 Other nonspecific abnormal finding of lung field
CPT/HCPCS: 99214; G2211

== ENCOUNTER 2025-03-28 11:29 | Outpatient (AMB) | payer OTHER, SELFPAY ==
[2025-03-28 11:31] VITALS: BP 92/64; PULSE 89; TEMP 36.7; O2SAT 96; BMI 23.9
--- NOTE | 2025-03-28 11:31 | A.OFFPC_ITS ---
Vital Signs 03/28/25 11:31 Height 5 ft 10 in Weight 166 lb 8 oz BMI 23.9 BP 92/64 Blood Pressure Location Lt brachial Position Sitting Pulse 89 Pulse Source Pulse Oximeter Temp 98.1 F Temp Source Temporal Artery Scan Pulse Oximetry (%) 96 Oxygen Delivery Method Room Air Intake Visit Reasons: Annual Exam Allergies No Known Allergies Allergy (Verified 03/28/25 11:32) Medication List - Last Reconciled 03/28/25 by Tripp Palomino MD albuterol sulfate 90 mcg/actuation 2 puffs inhalation Q4-6H PRN [allergy injections IM] ascorbate calcium (vitamin C) 1,000 mg PO DAILY budesonide-formoterol 160-4.5 mcg/actuation (Symbicort) 2 puffs inhalation BID 30 days cholecalciferol (vitamin D3) 25 mcg PO DAILY famotidine 20 mg PO DAILY 21 days [id number] mg 1 cap PO DAILY lactobacillus combination no.9 (Adult 50 Plus Probiotic) 4,000 mmu cells PO DAILY levocetirizine (Xyzal) 5 mg PO DAILY oregano oil 1,500 mg PO DAILY soybean, fermented (Nattokinase) 50 mg PO DAILY tolterodine ER 4 mg PO DAILY turmeric (bulk) 95% (Curcumin) 500 ea miscellaneous DAILY zinc glycinate 20 mg PO DAILY Tobacco use date assessed: 09/20/24 Dental Screening Dental Screen Date: 09/20/24 Did you have a dental visit in the last 12 months?: Yes Did you have a dental problem in the last 6 months where you did not have access to dental care?: No Was dental information given to patient?: Patient has dentist HPI HPI Comments History of Present Illness Details History of Present Illness The patient is a 59-year-old female presenting for a physical exam. Her medical history is significant for Isciw-Kwtwbiugz-Oqmtf syndrome with an ablation in 2011, osteoporosis with her last bone density scan in March 2023, hypercholesterolemia, allergic bronchopulmonary aspergillosis, bronchiectasis, asthma, and a history of pulmonary nodules. Regarding her pulmonary conditions, the patient is followed by pulmonology and was last seen in March. She is prescribed Symbicort twice a day, though she uses it once daily, and rinses her mouth afterward. She has not needed her albuterol inhaler. Xolair therapy is being considered, pending results of a CT scan of the chest scheduled for September of next year. She was treated with doxycycline and prednisone two weeks ago and received an Acapella device in January for a respiratory infection to help clear phlegm. The patient has a history of stage 0 breast cancer (in-situ) and is due for a mammogram. Her last colonoscopy was in February 2021 and is considered up to date. She reports ongoing heartburn at night despite taking famotidine, which is often triggered by dinner foods like salad. The patient's LDL cholesterol was 119 mg/dL in July 2024. A coronary artery calcium scoring test in July 2024 revealed an Agatston score of 43. She also performed well on a stress test. She complains of significant sleep disturbance, waking up multiple times per night, including at 11:30 PM and 2:30 AM, which she attributes possibly to menopause. The patient also reports numbness and a kwpr-xkr-wspcwjv sensation in her toes, predominantly in the left foot, and has a history of breaking her toes multiple times. Her family history is significant for gallbladder cancer and a brain aneurysm in her father, myelofibrosis in her mother, heart attacks in uncles, and a stroke in her maternal grandmother. She does not use alcohol, cigarettes, or recreational drugs. Current medications and supplements include Symbicort, allergy shots, Xyzal, vitamin C, vitamin D3, famotidine, krill oil, and probiotics. Health Maintenance - Mammogram: Patient is due for a mammog [place]. - Bone Density Scan: Due for a repeat sc an; the last one was in March 2023. - Colonoscopy: Up to date, with the last one performed in February 2021. - Laboratory Screening: A complete fasti ng blood test will be ordered to check blood count, electrolytes, and kidney function. - Eye Exam: Last eye exam was a year and a half ago. - Vaccinations: Patient is scheduled for a flu shot. 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 - Shingles vaccine (Shingrix) was recomm ended as a two-part series. - RSV vaccine was discussed and will be considered after she turns 62. - Cardiovascular Risk: Coronary artery c alcium score was low at 43. - Lifestyle: Discussion included the imp ortance of staying hydrated and active, with the patient confirming she works out, does the Stairmaster, and drinks enough water. Social History - Substance Use: The patient denies smok ing and using recreational drugs. - She reports not drinking alcohol for a few years. - Exercise: The patient is very active, works out regularly, and uses the Stairmaster. - Nutrition: Reports drinking enough carleen er. - She eats yogurt with blueberries for b reakfast and a protein shake for lunch. - She has considered using turmeric but avoids creatine supplements. 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 Results - Labs: Blood work from March 2024 sh owed a normal blood count, electrolytes, renal function, and liver function. - Blood work from July 2024 showed an L DL cholesterol of 119. - Tests and Diagnostics: A bone density scan from March 2023 showed osteoporosis. - A colonoscopy from February 2021 was up to date. - A coronary artery calcium score from 2024 was 43. - The patient reported performing well o n a recent stress test. [facility] Medical History (Updated 03/28/25 @ 12:22 by Tripp Palomino MD) Annual physical exam Pulmonary nodules Chest pain Breast cancer, left Bronchopneumonia Asthma Allergies ABPA (allergic bronchopulmonary aspergillosis) Airway obstruction Right foot pain Fracture of fifth toe, left, closed Displaced fracture of fifth metatarsal bone URI (upper respiratory infection) Rib pain on right side COVID-19 virus infection Acute viral bronchitis Colon cancer screening History of Wndrx-Zwsfbxhwv-Yxwis (WPW) syndrome Osteoarthritis of knees, bilateral Chronic neck pain Surgical History H/O colonoscopy H/O cardiac radiofrequency ablation (~2013) History of lumpectomy of left breast H/O: hysterectomy Family History (Updated 03/28/25 @ 12:04 by Tripp Palomino MD) Father Cholangiocarcinoma Atrial fibrillation Cerebral aneurysm Mother Myelofibrosis Paternal Uncle Myocardial infarct Maternal Grandmother CVA (cerebral vascular accident) Social History (Updated 03/28/25 @ 12:05 by Tripp Palomino MD) Housing: House Are you a primary day care teacher to a significant other at home: No Do you presently have visiting nurse or other home services: No Alcohol intake: current Alcohol intake frequency: does not drink Comment: last 2022, no more Patient Tobacco Use Status: Never used Tobacco Tobacco use type: Cigarette e-Cigarette/Vaping Use: Never Used Second Hand Smoke Exposure: No service: No Current occupational status: employed and retired Cognitive needs: No Hearing needs: No Vision needs: Yes Questionnaire PHQ-9 Over the last 2 weeks, how often have you been bothered by any of the following problems? 1. Little interest or pleasure in doing things: not at all 2. Feeling down, depressed, or hopeless: not at all 3. Trouble falling or staying asleep, or sleeping too much: not at all 4. Feeling tired or having little energy: not at all 5. Poor appetite or overeating: not at all 6. Feeling bad about yourself - or that you are a failure or have let yourself or your family down: not at all 7. Trouble concentrating on things, such as reading the newspaper or watching television: not at all 8. Moving or speaking so slowly that other people could have noticed. Or the opposite - being so fidgety or restless that you have been moving around a lot more than usual: not at all 9. Thoughts that you would be better off or of hurting yourself in some way: not at all Total score: 0 Depression Screening Interpretation: Negative Depression Screening Done: Yes Source: Developed by Drs. Florian Tapia, Ana Krishnan, Evangelist clarke nd colleagues, with an educational violeta from [employer]. Thrive Questionnaire Date Thrive assessed: 09/13/24 I am a: Patient What is your living situation today?: I have a steady place to live Within the past 12 months, did the food you bought not last and you didn't have the money to get more?: Never true Within the past 12 months, did you worry whether your food would run out before you got money to buy more?: Never true Do you have trouble paying for medicines?: No Do you have trouble getting transportation to medical appointments?: No Do you have trouble paying your heating and electricity bill?: No Do you have trouble taking care of your child, family member or friend?: No Do you have trouble with day-to-day activities such as bathing, preparing meals, shopping, managing finances, etc.?: No Are you currently unemployed and looking for a job?: No Are you interested in more education?: No Please select the resources that you would like help with: None Currently or been in a relationship where the following occur: No concerns reported THRIVE Score: 0 AUDIT C Alcohol Use Questionnaire (AUDIT-C) 1. How often do you have a drink containing alcohol?: Never 2. How many drinks containing alcohol do you have on a typical day when you are drinking?: 1 or 2 3. How often do you have six or more drinks on one occasion?: Never Total Score: 0 CORINE-7 AMB Questionnaire CORINE-7 Date CORINE - 7 assessed: 09/20/24 Feeling nervous, anxious, or on edge: 0 = Not at all Not being able to stop or control worryin = Not at all Worrying too much about different things: 0 = Not at all Trouble relaxin = Not at all Being so restless that it is hard to sit still: 0 = Not at all Becoming easily annoyed or irritable: 0 = Not at all Feeling afraid as if something awful might happen: 0 = Not at all Total CORINE-7 score (0-4 normal; 5-9 mild; 10-14 moderate; 15-21 severe): 0 Source: Developed by Drs. Florian Tapia, Ana Krishnan, Evangelist Alva and colleagues, with an educational violeta from [employer]. Review of Systems Narrative Review of Systems - General: Reports feeling well. - Denies falls or syncope. - HEENT: Reports some hearing loss but does not require hearing aids. - Reports wearing glasses and may have astigmatism. - Denies vision problems like cataracts and denies issues with swallowing. - Cardiovascular: Reports occasional chest heaviness, which she questions may be related to congestion or indigestion, but denies it occurs with exercise. - Respiratory: Reports getting heavily winded after climbing stairs but denies this sensation during workouts. - Denies waking up with shortness of breath. - Gastrointestinal: Reports heartburn symptoms at night despite taking famotidine. - Denies issues with bowel movements or blood in the stool. - Genitourinary: Reports improvement in urinary incontinence. - She awakens to urinate at most twice per night. - Neurological: Reports occasional dizziness when bending over during workouts. - She reports numbness and a guqu-dtx-cckmhcw sensation in her toes, particularly on the left foot. - Musculoskeletal: No new surgeries reported. - Psychiatric: Reports significant trouble with sleep, waking frequently throughout the night, which is disruptive. - Denies being able to nap during the day. Const Denies poor appetite and Denies weakness Eyes Denies no additional complaints ENT Reports Normal hearing present, Denies dizziness, Denies nasal congestion, Denies tinnitus and Denies sore throat Card Denies chest pain, Denies syncope, Denies rapid heart rate and Denies dyspnea Resp Denies cough and Denies dyspnea GI Denies change in stool character, Reports constipation, Denies diarrhea, Denies nausea and Denies vomiting Denies urinary frequency, Denies difficulty voiding and Denies dysuria Neuro Reports Normal hearing present, Denies confusion, Denies dizziness, Denies syncope and Denies weakness Psych Denies confusion Physical exam (Primary Care) Vital Signs: Last Vital Signs Temp 98.1 F 03/28/25 11:31 Pulse 89 03/28/25 11:31 BP 92/64 03/28/25 11:31 Pulse Ox 96 03/28/25 11:31 Oxygen Delivery Method Room Air 03/28/25 11:31 BMI result Body Mass Index 23.9 Tobacco/Smoking Status: Tobacco use Status Tobacco use date assessed 09/20/24 03/28/25 11:34 Patient Tobacco Use Status Never used Tobacco 03/28/25 12:05 Tobacco use type Cigarette 03/28/25 12:05 e-Cigarette/Vaping Use Never Used 03/28/25 12:05 PHQ-9: PHQ-9 Score PHQ-9: Total score 0 03/28/25 12:11 Depression Screening Interpretation: Negative Thrive Assessment: Date of Thrive Assessment Date Thrive assessed 09/13/24 03/28/25 11:34 Currently or been in a relationship where the following occur: No concerns reported Narrative Physical Exam General: Cooperative, healthy appearing, comfortable, no acute distress and well developed Orientation: Patient oriented x3 Limitations: No limitations Head: Normal to inspection Ears: Hearing grossly normal bilaterally, no need for hearing aids yet Nose: Normal external nose present Face and sinus: Normal facial exam Eyes: Appearance normal, both eyes and all related structures Neck: Normal visual inspection and Yes full ROM Respiratory: Normal respiratory effort and able to speak in complete sentences. Clear to auscultation bilaterally Cardiovascular: Regular rate and rhythm. Normal S1 and S2 GI: Normal to inspection. Soft to palpation and nontender Skin: No rashes or lesions noted Neuro: Patient oriented x3 Extremities: Normal to inspection, numbness noted in the last two or three toes of the left foot, sometimes right foot, with pins and needles sensation. Const General: alert and awake; No confusion Orientation/consciousness: No confusion HENMT Head: Yes normocephalic Ears: external ears normal and TM's normal bilaterally Face and sinus: Yes normal facial exam Mouth: moist mucous membranes Throat: Yes tonsils normal Eyes Conjunctivae: conjunctivae normal Pupils: Equal, round and reactive pupils present and Pupil accommodation reflex normal Direct Ophthalmoscopy: normal light reflex Neck Neck: No lymphadenopathy Thyroid: Thyroid normal Chest Chest palpation & inspection: normal inspection of the chest Resp Effort & Inspection: normal respiratory effort and no audible wheezes Auscultation: clear to auscultation bilaterally, no crackles, no wheezes and lung sounds not diminished Cardio Rate: regular rate Rhythm: regular rhythm Peripheral pulses: radial pulses present and dorsalis pedis present GI Palpation (GI): no masses Auscultation: normal bowel sounds and normoactive bowel sounds Rectal Exam - Female: deferred Skin General skin exam: no rashes or lesions noted Rashes: no rashes Neuro General: deep tendon reflexes 2+ bilaterally and No confusion Cranial nerves: Yes Equal, round and reactive pupils present, Yes Midline tongue present, Yes Normal hearing present and Yes Ability to bilaterally elevate shoulders present Cognition (Neuro): normal cognition Gait exam (Neuro): Normal gait present Motor exam (neuro): 5/5 motor strength present throughout Deep tendon reflexes (DTR's): Right brachioradialis reflex intensity grade: 2+, Left brachioradialis reflex intensity grade: 2+, Right patellar reflex intensity grade: 2+ and Left patellar reflex intensity grade: 2+ Extrem General: No edema Coding Level of Care Code Est Pt Prev Care 40-64y(47118) Diagnoses Annual physical exam Z00.00 Moderate persistent asthma with acute exacerbation J45.41 Asthma complication type: with acute exacerbation Asthma persistence: persistent Asthma severity: moderate ABPA (allergic bronchopulmonary aspergillosis) B44.81 Gastroesophageal reflux disease without esophagitis K21.9 Esophagitis presence: without esophagitis Other osteoporosis without current pathological fracture M81.8 Osteoporosis type: other Presence of current pathological fracture: without current pathological fracture Hypercholesterolemia E78.00 Insomnia G47.00 Numbness in feet R20.0 Assessment & Plan Assessment & Plan (1) Annual physical exam: Code(s): Z00.00 - Encounter for general adult medical examination without abnormal findings Category: Medical Plan: Patient is advised to eat healthy, keep well hydrated, keep active and have adequate sleep. (2) Asthma: Code(s): J45.909 - Unspecified asthma, uncomplicated Category: Medical Qualifiers: Asthma complication type: with acute exacerbation Asthma persistence: persistent Asthma severity: moderate Qualified Code(s): J45.41 - Moderate persistent asthma with (acute) exacerbation Plan: Patient on albuterol inhaler Symbicort and has been placed on Xolair also and follows up with Pulmonary (3) ABPA (allergic bronchopulmonary aspergillosis): Code(s): B44.81 - Allergic bronchopulmonary aspergillosis Category: Medical Plan: Patient follows up with Pulmonary and dermatology nurse practitioner on desensitization shots (4) GERD (gastroesophageal reflux disease): Code(s): K21.9 - Gastro-esophageal reflux disease without esophagitis Category: Medical Qualifiers: Esophagitis presence: without esophagitis Qualified Code(s): K21.9 - Gastro-esophageal reflux disease without esophagitis Plan: Avoid the foods that causes that usually spicy foods, tomato products, juices, coffee, soda and foods that your sensitive to. After eating do not lie down, allow 3-4 hours before in lie down. And keep the head of bed above 30 degrees to avoid the acid from going up. (5) Osteoporosis: Comment: 03/29/2023 Code(s): M81.0 - Age-related osteoporosis without current pathological fracture Category: Medical Qualifiers: Osteoporosis type: other Presence of current pathological fracture: without current pathological fracture Qualified Code(s): M81.8 - Other osteoporosis without current pathological fracture Plan: discussed about repeating bone density. Discussed about calcium and vitamin-D (6) Hypercholesterolemia: Code(s): E78.00 - Pure hypercholesterolemia, unspecified Category: Medical Plan: Avoid fried foods, chicken skin, eggs, butter margarine, pastries and meat. Be it pork or beef they have a lot of cholesterol (7) Insomnia: Code(s): G47.00 - Insomnia, unspecified Category: Medical (8) Numbness in feet: Comment: bilateral Code(s): R20.0 - Anesthesia of skin Category: Medical Plan Plan Patient was informed and verbally consented to the use of an ambient scribe for clinic note documentation during this visit. 1. Wellness Visit An order for a fasting complete blood test, including blood count, electrolytes, and kidney function, will be provided. An order for a bone density scan has been placed, as the patient is due. The patient was advised to follow up on scheduling her mammogram. Vaccinations were discussed, including the patient's plan to get a flu shot and recommendations for the Prevnar 20 and Shingrix vaccines. A discussion was had regarding the potential for turmeric to interact with medications metabolized by the cytochrome P450 enzyme and advised against the use of creatine supplements due to potential kidney strain. 2. Insomnia The patient reports significant sleep disruption, which impacts her rest. She is interested in non-medication options and will be referred to a therapist for cognitive behavioral therapy for insomnia (CBT-I). 3. Peripheral Neuropathy The patient complains of numbness and paresthesias in her toes, mainly in the left foot. An order will be placed for a nerve conduction study to determine the etiology of her symptoms, whether local or originating from the lower back. 4. Gastroesophageal Reflux Disease The patient continues to experience heartburn symptoms at night despite taking famotidine. Advised the patient to try dietary modifications, such as changing her salad dressing, and to continue allowing at least four hours between her last meal and lying down. 5. Asthma, Bronchiectasis, And Allergic Bronchopulmonary Aspergillosis The patient's pulmonary conditions are stable with once-daily Symbicort use and no recent need for her albuterol inhaler. She will continue to follow up with her supervisor blueprinting and photocopy and is scheduled for a CT scan of the chest next year to evaluate for potential Xolair therapy. Discussion Notes I reviewed the patient's extensive medical history and recent diagnostic results, including her low coronary artery calcium score, which is reassuring. We discussed her health maintenance needs, and I provided orders for a bone density scan and fasting blood work, and advised her to confirm the timing for her next mammogram. We discussed vaccinations, recommending the flu, Prevnar 20, and Shingrix vaccines. For her primary complaint of insomnia, I explained the benefits of a non- pharmacological approach and recommended cognitive behavioral therapy for insomnia (CBT-I), to which she agreed. Regarding the numbness in her feet, I explained that a nerve test could help differentiate between a local nerve issue and a problem originating from her back; she consented to the referral. I also advised against the use of creatine supplements due to the potential for kidney strain and educated her on the interaction between turmeric and certain medications. Finally, I provided anticipatory guidance on preventing respiratory infections during the upcoming cold and flu season, emphasizing the effectiveness of masks in crowded indoor spaces. Patient Instructions - Schedule your bone density scan and check with your provider about when to schedule your next mammogram. - Go for the fasting blood work using the lab form provided. - You will receive a call to schedule appointments for sleep therapy and a nerve test for your feet. - Get your flu shot as planned. - Ask your pharmacy about the pneumonia (Prevnar 20) and shingles (Shingrix) vaccines. - To help with your heartburn, try using a different salad dressing and avoid lying down for 4 hours after you eat. - Do not take creatine supplements as they can be hard on your kidneys. - Continue to stay active, drink plenty of water, and maintain a healthy diet. - To reduce your risk of getting sick, wear a mask in crowded indoor places. Orders: Orders Complete Blood Count Auto Diff Today E78.00 - Pure hypercholesterolemia, unspecified Thyroid Stimulating Hormone Today E78.00 - Pure hypercholesterolemia, unspecified Lipid Panel Today E78.00 - Pure hypercholesterolemia, unspecified Vitamin B12 and Folate Today E78.00 - Pure hypercholesterolemia, unspecified Vitamin D 25-OH Total Today E78.00 - Pure hypercholesterolemia, unspecified Hemoglobin A1c Today E78.00 - Pure hypercholesterolemia, unspecified Magnesium Today E78.00 - Pure hypercholesterolemia, unspecified XR DEXA axial skeleton Today M81.0 - Age-related osteoporosis without current pathological fracture, M81.8 - Other osteoporosis without current pathological fracture NE nerve conduction velocity Today R20.0 - Anesthesia of skin Comprehensive Met. Panel Today E78.00 - Pure hypercholesterolemia, unspecified Free T4 (Free Thyroxine) Today E78.00 - Pure hypercholesterolemia, unspecified NE electromyogram (EMG) Today R20.0 - Anesthesia of skin Referrals Psychiatry Referral G47.00 - Insomnia, unspecified
--- OUTSIDE RECORDS SUMMARY | 2025-03-28 22:38 | XMS_ITS | Clinical Summary ---
Author Organization [facility] Address [address] [place] [address] Care Team Providers Care Locksmith Helper Name Role Phone Tripp Palomino MD Primary Care Provider [phone] Allergies No known active allergies Medications Medication [...] age to complete this topic Care Teams Locksmith Helper Relationship Specialty Start Date End Date PoTripp MD [address] [place] [address] [address] [facility] [place] [address] PCP - General Internal Medicine 07/22/20
--- OUTSIDE RECORDS SUMMARY | 2025-03-28 22:38 | XMS_ITS | Patient Health Record ---
Author Organization [facility] Address [address] [place] [address] Care Team Providers Care Manager Outreach Name Role Phone Tripp Palomino Primary Care Provider Unavailabl e Black, Danya Unavailable [phone] Allergies No Known Allergies Reason For Referral [...] Coverage End Date WEB TPA [address] [address] [place] [address] [phone] [id number] RU Lori Angel Self - patient is the insured Medical (General) History Medical History History ICD Code Arthritis Back,Hip,and Knee pain Broken bones CAD (Cholesterol) Cancer covid-19 Headaches/Migraines Heart disease Surgical History Surgery Date(Month/Year) partial hysterectomy 11/2010 lumpectomy, left breast 2016 heart ablation 04/2014
== END 2025-03-28 12:25 | disposition home or self-care (01) ==
LOC: HO.HMCH 11:29
PROVIDERS: PCP Internal Medicine; Visit Provider Internal Medicine
DX: Z00.00 Encounter for general adult medical examination without abnormal findings (principal); J45.41 Moderate persistent asthma with (acute) exacerbation; B44.81 Allergic bronchopulmonary aspergillosis; K21.9 Gastro-esophageal reflux disease without esophagitis; M81.8 Other osteoporosis without current pathological fracture; E78.00 Pure hypercholesterolemia, unspecified; G47.00 Insomnia, unspecified; R20.0 Anesthesia of skin

== ENCOUNTER 2025-04-16 09:13 | Outpatient (REF) | payer OTHER, SELFPAY ==
--- NOTE | ~2025-04-16 | MM_ITS ---
EXAMINATION: DXA BONE DENSITY AXIAL HISTORY: M81.0 - Age-related osteoporosis without current pathological fracture TECHNIQUE: Blink Messenger Dual energy absorptiometry (DEXA) of the lumbar spine, total left hip, and femoral neck was performed. COMPARISON: Comparison is made with the prior examination dated 04/07/2023. FINDINGS: The bone mineral density of the lumbar spine is 1.118 g/cm2, corresponding to a T-score of -0.5, and a Z-score of 0.2. This is indicative of normal bone mineral density. This represents a BMD change of -0.9% compared to the prior exam. This is not statistically significant. The bone mineral density of the left total hip is 0.808 g/cm2, corresponding to a T-score of -1.6, and a Z-score of -1.0. This is indicative of osteopenia. This represents a BMD change of -5.9% compared to the prior exam. This is statistically significant. The bone mineral density of the left femoral neck is 0.692 g/cm2, corresponding to a T-score of -2.5, and a Z-score of -1.5. This is indicative of osteoporosis. This represents a BMD change of 1.0% compared to the prior exam. FRACTURE RISK: The FRAX index suggests a ten year probability of major osteoporotic fracture of 10.3%, and of hip fracture 2.0%. MM/XR DEXA axial skeleton IMPRESSION: Based on bone mineral density, and according to World Health Organization (WHO) criteria, the diagnosis is consistent with osteoporosis. Statistically, 68% of repeat scans fall within 1 SD (+/- 0.010 g/cm2 for AP spine L1-L4) and 1 SD (+/- 0.012 g/cm2 for femur total) FRAX is a trademark of the [employer] Metabolic Bone Disease, a World Health Organization (WHO) Collaborating Center. Electronically signed by: Florian Cisse MD 04/16/2025 09:46 AM [facility]
== END 2025-04-16 09:14 | disposition home or self-care (01) ==
LOC: HO.MAMMO 09:13
PROVIDERS: PCP Internal Medicine; Visit Provider Internal Medicine
DX: M81.0 Age-related osteoporosis without current pathological fracture (principal)
CPT/HCPCS: 77080

== ENCOUNTER → 2025-04-16 09:15 | Outpatient (BNV) | payer OTHER, SELFPAY | PROVIDERS: PCP Internal Medicine; Visit Provider Radiology Diagnostic Radiology | DX: E28.39 Other primary ovarian failure (principal) | CPT/HCPCS: 77080 ==

== ENCOUNTER 2025-04-17 10:30 | Outpatient (REF) | payer OTHER, SELFPAY ==
--- NOTE | 2025-04-17 10:32 | EMG_ITS ---
Chief complaint: Numbness in feet Referred by:?Tripp Palomino MD Procedure done: Bilateral lower extremities NCS/EMG Bilateral tibial and peroneal motor studies were performed with F responses and tibial H reflexes. Bilateral superficial peroneal and sural sensory studies were performed and needle examination was performed. Findings: Right peroneal amplitude was moderately diminished especially across fibular head with slowing of conduction velocity. Left superficial peroneal amplitude was significantly diminished and right superficial peroneal amplitude was moderately diminished. Sensory responses and feet revealed significant reduction of amplitude. Impression: Mild axonal somewhat patchy sensory more than motor chronic peripheral neuropathy Codin 01174 2 extremities MTDD
== END 2025-04-17 10:31 | disposition home or self-care (01) ==
LOC: HO.NEURO 10:30
PROVIDERS: PCP Internal Medicine; Visit Provider Internal Medicine
DX: R20.0 Anesthesia of skin (principal)
CPT/HCPCS: 95886; 95913

== ENCOUNTER → 2025-04-17 10:32 | Outpatient (BNV) | payer OTHER, SELFPAY | PROVIDERS: PCP Internal Medicine; Visit Provider Psychiatry & Neurology Neurology | DX: R20.0 Anesthesia of skin (principal); G62.89 Other specified polyneuropathies | CPT/HCPCS: 95886; 95912 ==

== ENCOUNTER 2025-04-19 06:33 | Outpatient (REF) | payer OTHER, SELFPAY ==
--- OUTSIDE RECORDS SUMMARY | 2025-04-19 06:37 | XMS_ITS | Clinical Summary ---
Author Organization [facility] Prior to 10/07/[address] [place] [address] Care Team Providers Care Vegetable Loader Machine Operator Name Role Phone Tripp Palomino MD Primary Care Provider [phone] Allergies No known active allergies Medications Medication [...] age to complete this topic Care Teams Vegetable Loader Machine Operator Relationship Specialty Start Date End Date Tripp Palomino MD [address] [place] [address] [address] [facility] [place] [address] PCP - General Internal Medicine 07/22/20
--- OUTSIDE RECORDS SUMMARY | 2025-04-19 06:37 | XMS_ITS | Clinical Summary ---
Author Organization [facility] Address [address] [place] [address] Phone Care Team Providers Care Finance Lead Name Role Phone Tripp Palomino MD Primary Care Provider [phone] Surgical History Surgery Date Site/Laterality Comments BREAST LUMPECTOMY PROCEDURE:BREAST LUMPECTOMY HYSTERECTOMY PROCEDURE:HYSTERECTOMY;COMMENT:partial Medical History Medical History Date Comments Breast cancer ([facility] V24, [facility] V28) DX:Breast cancer ([facility]) Social History Tobacco Use Types Packs/Day Years Used Date Smoking Tobacco: Never Smokeless Tobacco: Never Alcohol Use Standard Drinks/Week Comments No 0 (1 standard drink = 0.6 oz pur e alcohol) Comments Unknown Sex and Gender Information Value Date Recorded Sex Assigned at Not on file Legal Sex Female 6:04 PM EST Gender Identity Not on file Sexual Orientation Not on file Last Filed Vital Signs [...] Health Screening 04/16/2022 Breast Cancer Screening 02/12/2024 02/12/20 22, 02/04/2021, 02/02/2020 Depression Screening 05/10/2024 COVID-19 Vaccine (1 - 2024-2 6 season) 2025 Influenza Vaccine (#1) 2025 RSV [...] Procedure Name Priority Date/Time Associated Diagnosis Comments [facility] SCRE[facility] DIGITAL Routine 02/11/2022 6:00 PM EDT Encounter for screening mammogram for malignant neoplasm of breast from Last 3 Months or Most Recently Relevant to Health Maintenance Results * [facility] SCREEN[facility] (02/11/2022 6:00 PM EDT) Anatomical Region Laterality Modality Mammography 02/11/2022 8:58 AM EDT Narrative 02/11/2022 6:00 PM EDT [facility] Diagnostic Imaging Department [address] [place] [id number] Patient: CHIQUITA SANDOVAL Claudia SantosB./Age/Sex: 1965 - 56 - F Unit#: [id number] Location/Status: SPDIMAM/REG CLI Mnemonic/Ordering Site: [facility] Ordering Physician: RAD RED MD [...] detection. Comparison made with previous mammograms from [facility] 02/03/2021 dating back to 03/13/2016. Findings: Breast tissue consists of a heterogenous combination of fatty and fibroglandular tissue, potentially obscuring small lesions, category c density (as calculated by [employer] software). Left mid breast grouped microcalcifications at [...] No suspicious interval change of the right. [address], [address] A negative mammogram in the face of a clinically suspicious abnormality does not exclude the possibility of malignancy nor alter the indications for biopsy. Note: Patient information entered into a reminder system with a target due date for the next mammogram; [employer] II 7086F Dictating Physician: KEEGAN MAYA MD Electronically Signed by: KEEGAN MAYA MD Dic Date/Time: 02/11/221725 Sign date/Time: 02/11/221738 Procedure Note Keegan Maya MD - 04/29/2022 [facility] Diagnostic Imaging Department [address] [place] [address] Patient: CHIQUITA SANDOVAL Claudia SantosB./Age/Sex: 1965 - 56 - F Unit#: [id number] Location/Status: [facility] Mnemonic/Ordering Site: [facility] Ordering Physician: RAD RED MD [...] detection. Comparison made with previous mammograms from [facility]/03/2021 dating back to 03/13/2016. Findings: Breast tissue consists of a heterogenous combination of fattyand fibroglandular tissue, potentially obscuring small lesions, category cdensity (as calculated by [employer] software). Left mid breast grouped microcalcifications [...] No suspicious interval change of the right. 89625, 24868 A negative mammogram in the face of [...] Recently Relevant to Health Maintenance Care Teams Finance Lead Relationship Specialty Start Date End Date Tripp Palomino MD [address] [place] [address] [address] [facility] [place] [address] PCP - General Internal Medicine 09/18/20
--- OUTSIDE RECORDS SUMMARY | 2025-04-19 06:37 | XMS_ITS | Patient Health Record ---
Author Organization [facility] Address [address] [place] [address] Care Team Providers Care Jewel Bearing Driller Name Role Phone Tripp Palomino Primary Care Provider Unavailsyd e Black, Danya Unavailable [phone] Allergies No Known Allergies Reason For Referral [...] Coverage End Date WEB TPA [address] [address] [place] [address] [id number] RU Lori Angel Self - patient is the insured Medical (General) History Medical History History ICD Code Arthritis Back,Hip,and Knee pain Broken bones CAD (Cholesterol) Cancer covid-19 Headaches/Migraines Heart disease Surgical History Surgery Date(Month/Year) partial hysterectomy 11/2010 lumpectomy, left breast 2016 heart ablation 04/2014
[2025-04-19 07:14] LABS: Hematocrit 41.8 % (37.0-47.0); Hemoglobin 14.1 g/dl (12.0-16.0); Imm Gran Abs Auto 0.01 X10*3/uL (0.00-0.03); Imm Gran Pct Auto 0.3 % (0.0-0.4); Lymphocytes Absolute Auto 1.8 X10*3/uL (1.2-4.9); MANUAL DIFF FLAG SCAN; Mean Corpuscular HGB Conc 33.7 g/dl (31.0-35.0); Mean Corpuscular Hemoglobin 28.8 pg (27.0-33.0); Mean Corpuscular Volume 85.5 fL (80.0-98.0); NRBC Abs Auto 0.000 X10*3/uL (0.0-0.012); NRBC Pct Auto 0.0 /100WBC (0.0-0.2); Platelet Count 311 X10*3/uL (160-400); Red Blood Count 4.89 X10*6/uL (4.20-5.50); SCAN SMEAR FLAG 1; White Blood Count 3.3 X10*3/uL (4.8-10.8)
[2025-04-19 08:00] LABS: Alanine Aminotransferase 20 U/L (0-31); Albumin Level 4.4 g/dL (3.5-5.0); Alkaline Phosphatase 66 U/L (39-117); Anion Gap 7 (12-20); Aspartate Amino Transferase 23 U/L (5-31); Blood Urea Nitrogen 20 mg/dL (9-16); Calcium 9.4 mg/dL (8.4-10.2); Carbon Dioxide 31 mmol/L (22-29); Chloride 108 mmol/L (96-108); Cholesterol 196 mg/dL (<200); Estimated Glomerular Filt Rate > 60; HDL Cholesterol 66 mg/dL (>40); Magnesium 2.2 mg/dL (1.6-2.6); Potassium 4.2 mmol/L (3.3-5.1); Sodium 142 mmol/L (135-145); Total Protein 6.9 g/dL (6.5-8.0); Triglycerides 60 mg/dL (<150)
[2025-04-19 08:20] LABS: Free T4 (Free Thyroxine) 0.88 ng/dL (0.71-1.85); Thyroid Stimulating Hormone 2.31 uIU/mL (0.32-4.0)
[2025-04-19 08:28] LABS: Folate 6.5 ng/mL (> or = 4.0); Vitamin B12 442 pg/mL (200-900)
== END 2025-04-19 06:34 ==
LOC: HO.LAB 06:33
PROVIDERS: PCP Internal Medicine; Visit Provider Internal Medicine
DX: Z13.1 Encounter for screening for diabetes mellitus (principal); E78.00 Pure hypercholesterolemia, unspecified
CPT/HCPCS: 36415; 80053; 80061; 82306; 82607; 82746; 83036; 83735; 84439; 84443; 85025